=== PATIENT | female | born 1945 | race African-American/Black ===

== ENCOUNTER 2019-12-02 13:50 | Inpatient (IN) | payer MEDICAID ==
[~2019-12-02] VITALS: Ht 154.9 cm; Wt 104.3 kg
[2019-12-02] MEDS: NACL 0.9% 1,000 ML IV SCH (01:00)
[~2019-12-02 13:50] MED LIST: AMLO10TA GT; CALC-105 GT; ENAL-197 GT; ESOM20EC GT; FENT25TD TD; FER300L GT; FOLI1TAB19 GT; FURO-572 GT; GLIP5TAB4 GT; MEDI30SO1 GT; MIRABULK GT; POLY15SO48 OP; SIMV10TA1 GT; VIC GT; [UNRECOGNIZED DRUG - CODE] GT
[2019-12-02 13:54] VITALS: BP 159/100
--- NOTE | 2019-12-02 14:00 | NUR ---
ALVINO GARCIA ALS TO ER BED 08
[2019-12-02 14:24] VITALS: BP 163/88
--- NOTE | 2019-12-02 14:50 | NUR ---
74 Y/O FEMALE BIB [facility], STAFF REPORTED INCREASED GASTRIC RESIDUAL >2000. ABD BLOATED AND FIRM. BOWEL SOUNDS HYPER ACTIVE IN ALL QUADRANTS. G TUBE PRESENT. EXP WHEEZES HEARD IN BILAT LUNGS. PT ON MECH VENT, RT AT BEDSIDE. NO DISTRESS NOTED. CAP REFILL >3. CONTRACTURES NOTED IN BILAT LOWER/UPPER EXTREMITIES. PERRLA. GCS12. PT AT BASELINE PER [facility]. VSS PMH: HTN, RESP DISTRESS, DM NKA
--- NOTE | 2019-12-02 15:08 | NUR ---
DR NASSAR AT BEDSIDE
[2019-12-02] MEDS ORDERED: NACL 0.9% 500 ML IV SCH (15:23)
--- NOTE | 2019-12-02 15:24 | NUR ---
ANNIKA ALEJO MADE AWARE ABOUT PATIENTS HTN 197/33. NO ORDERS PLACED AT THIS TIME
[2019-12-02] MEDS ORDERED: hydrALAZINE 20 MG/ML VIAL IVP ONE (15:25)
--- NOTE | 2019-12-02 16:18 | NUR ---
UNABLE TO GAIN IV ACCESS. CHARGE NURSE LAURO NOTIFIED. CONSULTED WITH ANNIKA ALEJO, ADVISED WE WILL ORDER FOR PICC LINE ACCESS. CONSENT SIGNED BY ANNIKA
--- NOTE | 2019-12-02 16:22 | NUR ---
PT TAKEN TO CT VIA GURNEY. PORTABLE TELE MONITOR HOOKED UP TO PT.
--- NOTE | 2019-12-02 16:25 | NUR ---
TRANSFERRED PATIENT TO RADIOLOGY FOR CT SCAN OF CHEST AND ABDOMEN REMOVED PATIENT FROM VENTILATOR AND PLACED ON SUPPLEMENTAL OXYGEN VIA E-TANK AT 15 LPM TO HME/INLINE SUCTION CATHETER/TRACH BAG DEPRESSIO EVERY 6-8 SECONDS TOLERATED PROCEDURE WELL WITHOUT INCIDENT SATURATION 98% HR 118 Addendum: 12/02/19 at 1651 by Matt Medina RT Donnie AUGUST RCP AND Sylwia MEDINA RCP ATTENDING
[2019-12-02 16:34] LABS: APPEARANCE,URINE CLEAR (CLEAR); BILIRUBIN,URINE NEGATIVE (NEGATIVE); BLOOD, URINE NEGATIVE (NEGATIVE); COLOR,URINE YELLOW (YELLOW); LEUKOCYTE ESTERASE ,URINE NEGATIVE (NEGATIVE); NITRITE, URINE NEGATIVE (NEGATIVE); PH,URINE 7.5 (5.0-9.0); UGLUCOSE NEGATIVE (NEGATIVE)
--- NOTE | 2019-12-02 16:41 | NUR ---
PT REMAINS ON AC 10, VT 450, PEEP 5 AND FIO2 28%. PT NOT IN ANY DISTRESS AT THIS TIME. VENT IS ALARMS REMAIN ON AND FUNCTIONING. TRACH IS SECURE WITH A PATENT AIRWAY.
[2019-12-02 16:50] LABS: RBC,URINE 0 /HPF (0-5); URINE AMORPHOUS URATE 1+ /HPF (None Seen); WBC,URINE 0-5 /HPF (0-5)
[2019-12-02 16:51] LABS: HYALINE CASTS, URINE 0-10 /LPF (None Seen)
[2019-12-02] MEDS ORDERED: ACETAMINOPHEN 325 MG TAB PO PRN (17:20)
[2019-12-02] MEDS ORDERED: HYDROcodone/APAP 7.5/325 MG 1 TAB GT PRN (17:20)
[2019-12-02] MEDS ORDERED: ONDANSETRON 4 MG/2 ML VIAL IM/IVP PRN (17:20)
[2019-12-02] MEDS ORDERED: MORPHINE SULFATE 2 MG/ML SYR IVP PRN (17:20)
[2019-12-02] MEDS ORDERED: DOCUSATE SODIUM 100 MG GELCAP PO PRN (17:20)
--- NOTE | 2019-12-02 17:30 | NUR ---
MIHIR TORRES RN AT BEDSIDE BEGINNING PICC LINE PROCEDURE. 1 EMT AT BEDSIDE.
--- NOTE | 2019-12-02 17:50 | NUR ---
PICC LINE INSERTION COMPLETE. PATIENT TOLERATED PROCEDURE WELL.
--- NOTE | 2019-12-02 17:58 | NUR ---
LAB AT BEDSIDE
[2019-12-02 18:08] LABS: BASOPHILS % (AUTO) 0.4 % (0.0-2.0); EOSINOPHILS # (AUTO) 0.1 K/uL (0-0.4); EOSINOPHILS % (AUTO) 1.2 % (0.0-4.0); HEMATOCRIT 31.9 % (36-48); HEMOGLOBIN 10.2 g/dL (12.0-16.0); LYMPHOCYTES # (AUTO) 2.4 K/uL (2.5-16.5); LYMPHOCYTES % (AUTO) 23.3 % (20.5-51.1); MEAN CORPUSCULAR HEMOGLOBIN 30 pg (27-31); MEAN CORPUSCULAR HGB CONC 32 g/dL (33-37); MEAN CORPUSCULAR VOLUME 94.3 fL (80-94); MONOCYTES # (AUTO) 1.4 K/uL (0.8-1.0); MONOCYTES % (AUTO) 13.1 % (1.7-9.3); NEUTROPHILS # (AUTO) 6.4 K/uL (1.8-7.7); PLATELET COUNT (AUTO) 208 K/uL (140-450); RED BLOOD CELL COUNT(AUTO) 3.38 MIL/uL (4.20-5.40); RED CELL DISTRIBUTION WIDTH 13.8 % (11.6-13.7); WHITE BLOOD COUNT (AUTO) 10.4 K/uL (4.8-10.8)
--- NOTE | 2019-12-02 18:09 | NUR ---
G TUBE PLACED TO MED CONTINOUS SUCTION PER ERMD MARIANA ORDERS. 1400ML DRAINAGE COLLECTED
[2019-12-02] MEDS ORDERED: ACET-2619 GT (18:13)
[2019-12-02] MEDS ORDERED: METO-485 GT (18:13)
[2019-12-02] MEDS ORDERED: NUTR-396 PO (18:13)
[2019-12-02] MEDS ORDERED: METO50TA GT (18:19)
[2019-12-02] MEDS ORDERED: LACT1CAP92 GT (18:22)
[2019-12-02] MEDS ORDERED: CRAN450T5 GT (18:28)
[2019-12-02] MEDS ORDERED: ASCO500T45 GT (18:29)
[2019-12-02] MEDS ORDERED: [UNRECOGNIZED DRUG - OTHER] GT (18:32)
[2019-12-02] MEDS ORDERED: POTA10TE30 GT (18:33)
[2019-12-02 18:38] LABS: PROTHROMBIN TIME 10.7 secs (10.8-13.4)
--- NOTE | 2019-12-02 18:40 | NUR ---
Patient will be admitted to [facility]. Admited to TELE. Will go to room 108B. Belongings list completed. Report to SAMUEL SHERIDAN.
[2019-12-02 18:46] LABS: ALBUMIN 2.9 g/dL (3.4-5.0); ANION GAP 10.4 (8-16); ASPARTATE AMINOTRANSFERASE 25 U/L (15-37); CARBON DIOXIDE 35.7 mmol/L (21-32); CHLORIDE 102 mmol/L (98-107); CREATININE 0.7 mg/dL (0.6-1.3); GLUCOSE 129 mg/dL (74-106); POTASSIUM 3.1 mmol/L (3.5-5.1); SODIUM SERUM 145 mmol/L (136-145); TOTAL BILIRUBIN 0.3 mg/dL (0.0-1.0); UREA NITROGEN, BLOOD 21 mg/dL (7-18)
[2019-12-02 18:51] LABS: FREE T4 (FREE THYROXINE) 1.3 ng/dL (0.76-1.46); MAGNESIUM 2.4 mg/dL (1.8-2.4); PHOSPHORUS 3.7 mg/dL (2.5-4.9); THYROID STIMULATING HORMONE 3.31 uIU/mL (0.34-3.74)
--- NOTE | 2019-12-02 19:30 | NUR ---
RECEIVED BEDSIDE REPORT FROM AM SHIFT RN FOR PT'S CONTINUITY OF CARE. PT IS APHASIC, IS ON STONE UNLOADER, IS ON TRACH TO VENT, HAS RIGHT UPPER ARM PICC LINE, BILATERAL UPPER EXTREMITY CONTRACTURES, AND BILATERAL FEET CONTRACTURES, FLACC - 0. SAFETY MEASURES IN PLACE, AND VENT MONITOR IN PROPER SETTINGS. WILL MONITOR PT THROUGHOUT SHIFT.
--- NOTE | 2019-12-02 19:32 | NUR ---
GAVE REPORT TO EVENT SPECIALIST NURSE FOR CONTINUITY OF CARE. PATIENT IN STABLE CONDITION.
[2019-12-02] MEDS ORDERED: ACETAMINOPHEN 325 MG TAB GT PRN (19:55)
[2019-12-02 20:00] VITALS: BP 145/75
[2019-12-02] MEDS: METOPROLOL 50 MG TAB GT SCH (21:00)
[2019-12-02] MEDS: CALCIUM CARB/VIT-D 500 MG/200 IU 1 TAB GT SCH (21:00)
[2019-12-02] MEDS: SIMVASTATIN 10 MG TAB GT SCH (21:00)
[2019-12-02] MEDS: POTASSIUM CHLORIDE 20% 40 MEQ/15 ML UDC GT SCH (21:00)
--- NOTE | 2019-12-02 21:00 | NUR ---
GTUBE PLACEMENT VERIFIED BY AUSCULTATION, ASPIRATED >200 ML OF GASTRIC CONTENTS, NOTIFIED MD. PER MD, HOLD PO MEDICATIONS UNTIL NEXT MORNING FOR FURTHER EVAL. NEW IV ORDERS WILL BE PUT IN.
[2019-12-02] MEDS ORDERED: FUROSEMIDE 20 MG TAB GT SCH (21:30)
[2019-12-02] MEDS ORDERED: DOCUSATE 100 MG/10 ML UDC GT SCH (21:30)
[2019-12-02] MEDS ORDERED: ALBUTEROL SULFATE/IPRATROPIU 3 ML SOL IH PRN (21:30)
[2019-12-02] MEDS ORDERED: GLUCAGON 1 MG VIAL IVP PRN (22:50)
[2019-12-02] MEDS ORDERED: INSULIN LISPRO SLIDING SCALE 100 UNITS/ML VIAL SUBQ PRN (22:50)
[2019-12-02] MEDS ORDERED: DEXTROSE 50% 50 ML SYR IVP PRN (22:50)
[2019-12-02] MEDS: hydrALAZINE 20 MG/ML VIAL IVP PRN (22:52)
--- NOTE | 2019-12-02 22:58 | NUR ---
ADMINISTERED SCHEDULED MEDICATIONS ORDERED. PICC LINE PATENT AND INTACT. PERFORMED ORAL CARE. GTUBE ON LOW INTERMITTENT SUCTION PER MD ORDER. PT SHOWS NO SIGNS OF DISTRESS AT THIS TIME. WILL CONTINUE TO MONITOR PT.
[2019-12-02] MEDS ORDERED: KCL 20 MEQ/WATER INJ PREMIX 200 ML IV SCH (23:00)
[2019-12-02] MEDS ORDERED: FUROSEMIDE 20 MG/2 ML VIAL IVP SCH (23:00)
[2019-12-03] VITALS (7 sets, daily range): BP systolic 132–172; BP diastolic 40–69
--- NOTE | 2019-12-03 | NUR ---
VS CHECKED AND CHARTED. NOTIFIED MD, NO NEW ORDERS.
--- NOTE | 2019-12-03 02:28 | NUR ---
MADE ROUNDS. PT IN STABLE CONDITION, SHOWS NO SIGNS OF DISTRESS. WILL CONTINUE TO MONITOR PT.
--- NOTE | 2019-12-03 04:00 | NUR ---
SUCTIONED PT. ORAL CARE GIVEN, PT CLOSING MOUTH AND BITING THE YANKAUER SUCTION.
[2019-12-03] MEDS: POTASSIUM CHLORIDE 20% 40 MEQ/15 ML UDC GT SCH (05:00)
--- NOTE | 2019-12-03 05:05 | NUR ---
PO MEDICATION NON-ADMINISTERED, PER MD INSTRUCTION.
[2019-12-03] MEDS: hydrALAZINE 20 MG/ML VIAL IVP PRN (05:08)
--- NOTE | 2019-12-03 05:08 | NUR ---
ADMINISTERED IVP HYDRALAZINE PER PROTOCOL. SUCTIONED PT, PT TOLERATED IT WELL. PT CHANGED AND REPOSITIONED. WILL CONTINUE TO MONITOR PT.
--- NOTE | 2019-12-03 06:10 | NUR ---
BP RE-ASSESSED. BP 153/57 HR 103. BLOOD GLUCOSE CHECKED AND CHARTED, NO INSULIN COVERAGE NEEDED. PT SHOWS NO SIGNS OF DISTRESS. WILL ENDORSE TO AM SHIFT RN FOR PT'S CONTINUITY OF CARE.
[2019-12-03] MEDS: BLOOD GLUCOSE MONITORING 1 DEV DEV FS SCH ×4 (06:14→21:00)
--- NOTE | 2019-12-03 07:20 | NUR ---
RECEIVED REPORT FROM CONTRACTOR GENERAL ENGINEERING NURSE. PATIENT LYING DOWN IN BED, AWAKE, PERRLA, APHASIC. NO DISTRESS NOTED. ON TRACH TO VENT: FIO2:28%, VT:450, RATE:10, FLOW:30, PEEP:5, PMAX:55 WITH O2 SAT:98%. GTUBE IN PLACE, ON LOW INTERMITTENT SUCTION PER MD ORDERS. RUARM PICC LINE IN PLACE, INFUSING IVF PER MD ORDERS. REVIEWED PLAN OF CARE WITH PATIENT. UNABLE TO COMPREHEND. SAFETY MEASURES IN PLACE, CALL LIGHT WITHIN REACH. WILL CONTINUE TO MONITOR.
[2019-12-03] MEDS ORDERED: POLYVINYL ALCOHOL 1.4% OP 15 ML SOL OP PRN ×2 (07:25→12:19)
[2019-12-03 07:56] LABS: BASOPHILS % (AUTO) 0.5 % (0.0-2.0); EOSINOPHILS # (AUTO) 0.3 K/uL (0-0.4); HEMATOCRIT 31.6 % (36-48); HEMOGLOBIN 10.2 g/dL (12.0-16.0); LYMPHOCYTES # (AUTO) 2.5 K/uL (2.5-16.5); LYMPHOCYTES % (AUTO) 29.1 % (20.5-51.1); MEAN CORPUSCULAR HEMOGLOBIN 30 pg (27-31); MEAN CORPUSCULAR HGB CONC 32 g/dL (33-37); MEAN CORPUSCULAR VOLUME 94.1 fL (80-94); MONOCYTES # (AUTO) 0.9 K/uL (0.8-1.0); MONOCYTES % (AUTO) 10.3 % (1.7-9.3); NEUTROPHILS % (AUTO) 57.1 % (42.2-75.2); PLATELET COUNT (AUTO) 173 K/uL (140-450); RED BLOOD CELL COUNT(AUTO) 3.36 MIL/uL (4.20-5.40); RED CELL DISTRIBUTION WIDTH 13.6 % (11.6-13.7); WHITE BLOOD COUNT (AUTO) 8.7 K/uL (4.8-10.8)
[2019-12-03] MEDS: ALBUTEROL SULFATE/IPRATROPIU 3 ML SOL IH SCH ×3 (07:59→20:28)
[2019-12-03 08:07] LABS: ANION GAP 11.5 (8-16); CHLORIDE 103 mmol/L (98-107); CREATININE 0.6 mg/dL (0.6-1.3); GLUCOSE 107 mg/dL (74-106); SODIUM SERUM 147 mmol/L (136-145); UREA NITROGEN, BLOOD 16 mg/dL (7-18)
[2019-12-03 08:11] LABS: PHOSPHORUS 3.2 mg/dL (2.5-4.9)
--- NOTE | 2019-12-03 08:17 | NUR ---
PATIENT HAS BEEN SCREENED AND CATEGORIZED HIGH NUTRITION RISK. PATIENT WILL BE SEEN WITHIN 1-2 DAYS OF ADMISSION. 12/03/19-12/04/[address]
[2019-12-03 08:28] LABS: POTASSIUM 2.5 mmol/L (3.5-5.1)
[2019-12-03] MEDS: LACTOBACILLUS RHAMNOSUS GG 1 EACH CAP GT SCH (09:00)
[2019-12-03] MEDS ORDERED: POLYVINYL ALCOHOL 1.4% OP 15 ML SOL OP SCH (09:00)
[2019-12-03] MEDS ORDERED: CALCIUM CARB/VIT-D 500 MG/200 IU 1 TAB GT SCH (09:00)
[2019-12-03] MEDS: DOCUSATE 100 MG/10 ML UDC GT SCH ×2 (09:00→21:00)
[2019-12-03] MEDS: METOPROLOL 50 MG TAB GT SCH ×2 (09:00→21:00)
[2019-12-03] MEDS: CALCIUM POLYCARBOPHIL 625 MG TAB GT SCH (09:00)
[2019-12-03] MEDS ORDERED: METOCLOPRAMIDE 10 MG TAB GT SCH (09:00)
[2019-12-03] MEDS: NACL 0.9% 1,000 ML IV SCH (09:00)
[2019-12-03] MEDS: amLODIPine 5 MG TAB GT SCH (09:00)
[2019-12-03] MEDS: CALCIUM CARB/VIT-D 500 MG/200 IU 1 TAB GT SCH ×2 (09:00→21:00)
[2019-12-03] MEDS ORDERED: FUROSEMIDE 20 MG TAB GT SCH (09:00)
[2019-12-03] MEDS ORDERED: NON-FORMULARY ITEM (Cranberry Fruit (Cranberry) 450 MG) GT SCH (09:00)
[2019-12-03] MEDS ORDERED: VITAMIN D3 GT SCH (09:00)
[2019-12-03] MEDS: POLYETHYLENE GLYCOL 17 GM/PKT GT SCH (09:00)
[2019-12-03] MEDS ORDERED: ASCORBIC ACID 500 MG TAB GT SCH (09:00)
[2019-12-03] MEDS ORDERED: CALCIUM CARBONATE GT SCH (09:00)
[2019-12-03] MEDS: METOCLOPRAMIDE 10 MG/2 ML INJ VIAL IVP SCH (10:00)
[2019-12-03] MEDS: PANTOPRAZOLE 40 MG INJ VIAL IVP SCH (10:00)
[2019-12-03] MEDS: FUROSEMIDE 20 MG/2 ML VIAL IVP SCH (10:01)
--- NOTE | 2019-12-03 10:23 | NUR ---
PATIENT LYING DOWN IN BED SLEEPING, AROUSABLE BY VOICE. NO DISTRESS NOTED. FLACC 0. SCHEDULED MEDICATIONS DUE GIVEN. WILL CONTINUE TO MONITOR.
[2019-12-03] MEDS ORDERED: POTASSIUM CHLORIDE 40 MEQ, LIDOCAINE MPF 1% 25 MG in NACL 0.9% 250 ML IV SCH ×2 (11:00→15:00)
[2019-12-03] MEDS ORDERED: DEXT 5% / NACL 0.45% 1,000 ML IV SCH (11:05)
--- NOTE | 2019-12-03 11:47 | NUR ---
PT SUCTIONED OBTAINED SMALL AMOUNT OF THICK CLEAR SECRETIONS, AIRWAY IS PATENT AND TRACH IS SECURE. PT NOT IN ANY DISTRESS AT THIS TIME. WILL CONTINUE TO MONITOR.
--- NOTE | 2019-12-03 12:30 | NUR ---
ASSISTED CONCRETE STONE FINISHING SUPERVISOR IN CLEANING AND REPOSITIONING PATIENT. WILL CONTINUE TO MONITOR.
--- NOTE | 2019-12-03 13:32 | NUR ---
12/03/19 RD INITIAL ASSESSMENT COMPLETED PLEASE REFER TO NUTRITION ASSESSMENT UNDER CARE ACTIVITY FOR ESTIMATED NUTRITIONAL NEEDS. 1. CONTINUE NPO MEDICALLY NECESSARY 2. IF PATIENT BECOMES MEDICALLY CLEARED TO CONTINUE TUBE FEEDING UNDER DOCTORS DISCRETION, CONSIDER VITAL AF 1.2 @ 55 ML/HR X 24 HR -THIS WILL PROVIDE 1320 ML OF VOLUME, 1584 KCAL AND 99 GM OF PROTEIN, MEETING >75% OF NUTRIENT NEEDS 3. IF PATIENT CONTINUES TO BE NPO AND UNABLE TO RESTART TUBE FEEDING, CONSIDER PARENTERAL NUTRITION 4. RD TO FOLLOW-UP 2-3 DAYS, HIGH RISK MARIA ELENA LEMA RD
--- NOTE | 2019-12-03 13:35 | NUR ---
Photographic Process Attendant Note: Basic Screen: Yes High Risk DC Screen [place]: DENISSE FERNANDEZ Home Relationship: DAUGHTER Pre-Admission Living Arrangements: SNF Prior ADL Total/Dependent Current Home Health Name/Tel: N/A Current DME/02 Name/Tel: [facility] Current Hospice Name/Tel: N/A Current Dialysis Name/Tel: N/A Healthcare Decision Maker: Next of Kin Other: DENISSE REBECCA Advance Directive Yes Physician Orders for Life Sustaining Treatment Form Yes Discipline: Case Mgt/Social Svcs Tentative Discharge Plan/Destination: No Needs Identified Will require assistance post discharge: No Referred to Integration Consultant: No Tentative Discharge Plan Summary: Patient is a 74-year-old female admitted for gastric outlet obstruction. patient has PMHX of diabetes, GERD, and hypertension. Patient was admitted from [facility] as a subacute patient. SW contacted Lucinda from [facility] [phone] who stated patient is on a bed hold and needs total assistance with ADLs. Patient's tentative discharge plan is to [facility]. No further needs identified. Signature: LG Liu Date: Dec 03, 2019 Time: 13:30
--- NOTE | 2019-12-03 13:56 | NUR ---
DC PLANNING: A 74 Y/O FEMALE PATIENT FROM [facility] WHO CAME IN DUE TO ELEVATED BLOOD PRESSURE AND G TUBE RESIDUALS. PAST MEDICAL HISTORY INCLUDE CHRONIC RESPIRATORY FAILURE, DYSPHAGIA, CVA, DEMENTIA, QUADRIPLEGIA AND HTN. INITIAL DIAGNOSIS OF GASTRIC OUTLET OBSTRUCTION. CURRENT LABS INCLUDE WBC 8.7, H/H 10.2/31.6, NA/K 147/2.5, BUN/CREA 16/0.6. URINE, BLOOD, SPUTUM AND MRSA NARES PENDING. GI, PULMO, ID AND SURGICAL CONSULTS IN PLACE. ON LASIX AND REGLAN IV. DC PLAN BACK TO [facility] ONCE STABLE. Addendum: 12/05/19 at 1118 by Sumi Mclean CM RECEIVED AN ORDER TO DC BACK TO [facility] TODAY. CONTACTED PATIENT'S DAUGHTER DENISSE AT [phone] REGARDING DC PLAN, NO ANSWER. LEFT MESSAGE CLINICALS FAXED TO [facility]. CM WILL FOLLOW UP. Addendum: 12/05/19 at 1335 by Sumi Mclean CM PER YULISA PATIENT CAN DO TO ROOM 21B UNDER DR. TRINITY KEYS. CONTACTED PATIENT'S DAUGHTER DENISSE AT [phone], NO ANSWER. LEFT MESSAGE. Addendum: 12/05/19 at 1419 by Sumi Mclean CM PER [facility], LENS GENERATOR WILL BE AT 1600. PRIMARY FATIMAH DE AND DR. ALFONSO MADE AWARE.
--- NOTE | 2019-12-03 14:00 | NUR ---
DR LAM AT BEDSIDE EVALUATING PATIENT. PER DR. LAM GET EGD CONSENT. CALLED DENISSE(DAUGHTER) AT [phone] TO ASK FOR TELEPHONE CONSENT FOR EGD, NO ANSWER. LEFT A MESSAGE AND CALL BACK NUMBER. WILL CONTINUE OT MONITOR.
[2019-12-03] MEDS: POTASSIUM CHL 30 MEQ/ D5-1/2NS 1,000 ML IV SCH (15:26)
--- NOTE | 2019-12-03 16:02 | NUR ---
SCREEN FOR LOW CHIKIS SCALE AT RISK, CONTINUE TO FOLLOW PRESSURE ULCER PREVENTION INTERVENTIONS. -TURN AND REPOSITION PATIENT Q 2H -ASSESS AND MONITOR SKIN CONDITION DURING POSITION CHANGE -OFFLOAD BILATERAL HEELS BY PLACING PILLOWS UNDER CALVES AT ALL TIMES, UNLESS OTHERWISE CONTRAINDICATED -PRESSURE REDISTRIBUTION BY PLACING PILLOWS AND OFFLOADING SACRALCOCCYX -KEEP SKIN CLEAN AND DRY AT ALL TIMES.
--- NOTE | 2019-12-03 16:30 | NUR ---
ASSISTED COLORIST PHOTOGRAPHY IN CLEANING AND REPOSITIONING PATIENT. WILL CONTINUE TO MONITOR.
--- NOTE | 2019-12-03 17:51 | NUR ---
PT REMAINS ON DOCUMENTED VENT SETTINGS. PT NOT IN ANY DISTRESS AT THIS TIME. TRACH IS SECURE WITH A PATENT AIRWAY. PT SUCTIONED OBTAINED SMALL AMOUNT OF THICK PALE YELLOW SECRETIONS. VENT ALARMS ON AND FUNCTIONING.
[2019-12-03 18:38] LABS: ANION GAP 11.5 (8-16); CARBON DIOXIDE 32.4 mmol/L (21-32); CHLORIDE 107 mmol/L (98-107); CREATININE 0.6 mg/dL (0.6-1.3); GLUCOSE 122 mg/dL (74-106); SODIUM SERUM 148 mmol/L (136-145); UREA NITROGEN, BLOOD 12 mg/dL (7-18)
[2019-12-03] MEDS ORDERED: VANCOMYCIN PER PHARMACY MC PRN (18:40)
[2019-12-03 18:45] LABS: POTASSIUM 2.9 mmol/L (3.5-5.1)
--- NOTE | 2019-12-03 19:26 | NUR ---
GAVE REPORT TO DRIVER'S LICENSE EXAMINER NURSE FOR CONTINUITY OF CARE. PATIENT IN STABLE CONDITION.
--- NOTE | 2019-12-03 19:30 | NUR ---
RECEIVED PT FROM MATI SHERIDAN PT BEDBOUND APHASIC CONTRACTED UPPER AND LOWER EXTREMITIESHOB 30 DEGREEJ TRACH TO VENT TV 450 FI02 24% PEEP 5 RR 1 NOT SOB NOTED ON RT UA PICC LINE INFUSING WELL AT THIS TIME STILL INFUSING K +RIDDER , AND ALSO INFUSING IV FLUIDS D5 1/2 NS WITH 30 MEQ K+ PT REPOSITIONED INITIAL ASSESSMENT DONE ON TELEMETRY SR
--- NOTE | 2019-12-03 20:00 | NUR ---
HOB 30 DEGREE ORAL CARE GIVEN WITH VAP KIT , PT REPOSITIONED NOT DISTRESS NO;ALESSANDRA, PT ON TELE SR
[2019-12-03] MEDS: VANCOMYCIN 1,000 MG in DEXTROSE 5% 250 ML IV SCH (20:11)
[2019-12-03] MEDS: SIMVASTATIN 10 MG TAB GT SCH (21:00)
--- NOTE | 2019-12-03 21:00 | NUR ---
I CALL SEVERAL TIME TO DENISSE PT DAUGHTER TO GIVE A CONSENT FOR EGD TOMORROW AND THE FIRST TIME SHE PUT ME ON HOLD AND SHE DID NOT ANSWER AND THE OTHER 3 TIMES THAT I CALLED TO DENISSE PT DAUGHTER SHE DID NOT ANSWER AND I I LEFT A MESSAGES
[2019-12-04] VITALS: BP 154/40
--- NOTE | 2019-12-04 | NUR ---
PT ON CLOSE MONITORING ON TELEMETRY SR, TRACH TO VENT REMAIN SAME SETTING , PT REPOSITIONED Q2H
--- NOTE | 2019-12-04 02:12 | NUR ---
PT SLEEPING WELL NOT DISTRESS NOTED ON TELE SR , PT REPOSITIONED Q2H ANS SUCTIONED NECESSARY
[2019-12-04 04:00] VITALS: BP 156/47
[2019-12-04] MEDS: POTASSIUM CHL 30 MEQ/ D5-1/2NS 1,000 ML IV SCH (04:18)
[2019-12-04] MEDS: ALBUTEROL SULFATE/IPRATROPIU 3 ML SOL IH SCH ×3 (06:50→19:16)
--- NOTE | 2019-12-04 07:15 | NUR ---
RECEIVED REPORT FROM QUILT STUFFER NURSE. PATIENT LYING DOWN IN BED, AWAKE, PERRLA, APHASIC. NO DISTRESS NOTED. ON TRACH TO VENT: FIO2:24%, VT:450, RATE:10, FLOW:30, PEEP:5, PMAX:55 WITH O2 SAT:98%. GTUBE IN PLACE, ON LOW INTERMITTENT SUCTION PER MD ORDERS. RUARM PICC LINE IN PLACE, INFUSING IVF PER MD ORDERS. REVIEWED PLAN OF CARE WITH PATIENT. UNABLE TO COMPREHEND. SAFETY MEASURES IN PLACE, CALL LIGHT WITHIN REACH. WILL CONTINUE TO MONITOR.
[2019-12-04] MEDS: BLOOD GLUCOSE MONITORING 1 DEV DEV FS SCH ×4 (07:30→21:52)
[2019-12-04 08:00] VITALS: BP 134/45
[2019-12-04] MEDS: VANCOMYCIN 1,000 MG in DEXTROSE 5% 250 ML IV SCH (08:00)
[2019-12-04] MEDS: amLODIPine 5 MG TAB GT SCH (09:00)
[2019-12-04] MEDS: METOCLOPRAMIDE 10 MG/2 ML INJ VIAL IVP SCH ×3 (09:00→22:04)
[2019-12-04] MEDS: PANTOPRAZOLE 40 MG INJ VIAL IVP SCH (09:00)
[2019-12-04] MEDS: POLYETHYLENE GLYCOL 17 GM/PKT GT SCH (09:00)
[2019-12-04] MEDS: ASCORBIC ACID 500 MG/5 ML ORASYR GT SCH (09:00)
[2019-12-04] MEDS: CALCIUM CARB/VIT-D 500 MG/200 IU 1 TAB GT SCH (09:00)
[2019-12-04] MEDS: LACTOBACILLUS RHAMNOSUS GG 1 EACH CAP GT SCH (09:00)
[2019-12-04] MEDS: FUROSEMIDE 20 MG/2 ML VIAL IVP SCH (09:00)
[2019-12-04] MEDS: CALCIUM POLYCARBOPHIL 625 MG TAB GT SCH (09:00)
[2019-12-04] MEDS: METOPROLOL 50 MG TAB GT SCH ×2 (09:00→22:06)
[2019-12-04] MEDS: DOCUSATE 100 MG/10 ML UDC GT SCH (09:00)
--- NOTE | 2019-12-04 09:50 | NUR ---
SCHEDULED MEDICATIONS DUE GIVEN. CONDITION UNCHANGED. WILL CONTINUE TO MONITOR.
--- NOTE | 2019-12-04 09:51 | NUR ---
40 MEQ KCL WITH LIDOCAINE VIA IV STARTED PER DR. ALFONSO ORDERED. WILL CONTINUE TO MONITOR.
[2019-12-04 10:53] LABS: ANION GAP 10.7 (8-16); BASOPHILS % (AUTO) 0.6 % (0.0-2.0); CARBON DIOXIDE 31.1 mmol/L (21-32); CHLORIDE 108 mmol/L (98-107); CREATININE 0.6 mg/dL (0.6-1.3); EOSINOPHILS # (AUTO) 0.3 K/uL (0-0.4); EOSINOPHILS % (AUTO) 4.5 % (0.0-4.0); GLUCOSE 110 mg/dL (74-106); HEMATOCRIT 30.2 % (36-48); HEMOGLOBIN 9.7 g/dL (12.0-16.0); LYMPHOCYTES # (AUTO) 1.9 K/uL (2.5-16.5); LYMPHOCYTES % (AUTO) 29.4 % (20.5-51.1); MEAN CORPUSCULAR HEMOGLOBIN 31 pg (27-31); MEAN CORPUSCULAR HGB CONC 32 g/dL (33-37); MONOCYTES # (AUTO) 0.7 K/uL (0.8-1.0); MONOCYTES % (AUTO) 10.4 % (1.7-9.3); NEUTROPHILS # (AUTO) 3.6 K/uL (1.8-7.7); NEUTROPHILS % (AUTO) 55.1 % (42.2-75.2); PLATELET COUNT (AUTO) 132 K/uL (140-450); RED BLOOD CELL COUNT(AUTO) 3.18 MIL/uL (4.20-5.40); RED CELL DISTRIBUTION WIDTH 13.9 % (11.6-13.7); SODIUM SERUM 147 mmol/L (136-145); UREA NITROGEN, BLOOD 7 mg/dL (7-18); WHITE BLOOD COUNT (AUTO) 6.4 K/uL (4.8-10.8)
[2019-12-04 10:54] LABS: MAGNESIUM 1.8 mg/dL (1.8-2.4); PHOSPHORUS 3.3 mg/dL (2.5-4.9)
[2019-12-04] MEDS ORDERED: POTASSIUM CHLORIDE 40 MEQ, LIDOCAINE MPF 1% 25 MG in NACL 0.9% 250 ML IV ONE (11:20)
[2019-12-04 12:00] VITALS: BP 144/48
--- NOTE | 2019-12-04 12:00 | NUR ---
PATIENT LYING DOWN IN BED SLEEPING, AROUSABLE BY VOICE. NO DISTRESS NOTED. FLACC 0. WILL CONTINUE TO MONITOR.
[2019-12-04 12:13] LABS: POTASSIUM 2.8 mmol/L (3.5-5.1)
[2019-12-04] MEDS: POTASSIUM CHL 40 MEQ/ D5-1/2NS 1,000 ML IV SCH (13:27)
[2019-12-04] MEDS ORDERED: MIDAZOLAM 2 MG/2 ML VIAL ONE ×2 (13:48)
[2019-12-04] MEDS ORDERED: fentaNYL 0.05 MG/ML VIAL ONE (13:48)
--- NOTE | 2019-12-04 13:48 | NUR ---
ASSISTED FRENCH TEACHER IN CLEANING AND REPOSITIONING PATIENT. WILL CONTINUE TO MONITOR.
[2019-12-04] MEDS: MIDAZOLAM 2 MG/2 ML VIAL IVP ONE ×2 (14:50→16:50)
[2019-12-04] MEDS: fentaNYL 0.05 MG/ML VIAL IVP ONE ×2 (14:51→16:50)
--- NOTE | 2019-12-04 15:40 | NUR ---
DR. LAM AT BEDSIDE PERFORMING EGD. WILL CONTINUE TO MONITOR.
[2019-12-04 16:00] VITALS: BP 114/65
[2019-12-04] MEDS: GLUCAGON 1 MG VIAL IVP ONE ×2 (16:00→16:50)
--- NOTE | 2019-12-04 16:40 | NUR ---
EGD FINISHED. PER DR. LAM, DUODENAL POLYP REMOVED AND GTUBE AND JTUBE CONVERSION WAS PERFORMED. GTUBE TO LEAVE OPEN ON GRAVITY DRAIN AND FOR MED ADMINISTRATION. IF GIVING MED, CLAMP FOR 3 HOURS, AND THEN RESUME GRAVITY DRAIN ON GTUBE. JTUBE ONLY FOR FEEDING.
[2019-12-04] MEDS ORDERED: POTASSIUM CHLORIDE 20% 40 MEQ/15 ML UDC GT SCH (17:00)
--- NOTE | 2019-12-04 17:28 | NUR ---
SCHEDULED MEDICATIONS DUE GIVEN .WILL CONTINUE TO MONITOR.
--- NOTE | 2019-12-04 19:19 | NUR ---
GAVE REPORT TO PHOTOGRAVURE PRESS OPERATOR NURSE FOR CONTINUITY OF CARE. PATIENT IN STABLE CONDITION.
--- NOTE | 2019-12-04 19:20 | NUR ---
RECEIVED PT FROM MATI HARO APHASIC CONTRACTED ON TRACH TO VENT SETTING TV 450 , FIO2 24% PEEP 5 RR 18 NOT DISTRESS N;OTES G TUBE IN PLACE ZERO RESIDUAL PT WILL START FEEDING TUBE, ON RT UA PICC LINE INFUSING WELL IV FLUID,ON TELEMETRY ST REPOSITIONED INITIAL ASSESSMENT DONE
[2019-12-04 20:00] VITALS: BP 156/45
--- NOTE | 2019-12-04 20:00 | NUR ---
HOB 30 DEGREE ORAL CARE GIVEN WITH VAP KIT ANS SUCTIONED NECESSARY
--- NOTE | 2019-12-04 20:15 | NUR ---
FEEDING TUBE STARTED JEVITY 20 ML/H VIA JEJUNO AND G TUBE ACCESS WILL BE FOR MEDICATION
[2019-12-04] MEDS ORDERED: CRUSHER, PILL MC ONE (21:58)
[2019-12-04] MEDS: SIMVASTATIN 10 MG TAB GT SCH (22:04)
[2019-12-04] MEDS: POTASSIUM CHLORIDE 20% 40 MEQ/15 ML UDC GT SCH (22:07)
--- NOTE | 2019-12-04 23:00 | NUR ---
LINEN CHANGED ON TELEMETRY SR REPOSITIONED TRACH TO VENT REMAIN SAME SETTING
[2019-12-05] VITALS: BP 115/55
--- NOTE | 2019-12-05 03:00 | NUR ---
PT HAS BEEN ;MONITORING CLOSE TRACH TO BELEN REMAIN SAME SETTING ON TELEMETRY SR ANF FEEDING TUBE WELL ;TOLERAATED
[2019-12-05 04:00] VITALS: BP 144/43
--- NOTE | 2019-12-05 05:00 | NUR ---
SPONGE BATH GIVEN LINEN CHANGED ON TELE TRACH TO BELEN SAME SETTING ON TELEMETRY SR J TUBE FEEDING WELL TOLERATED
[2019-12-05] MEDS: ALBUTEROL SULFATE/IPRATROPIU 3 ML SOL IH SCH ×2 (06:34→13:00)
--- NOTE | 2019-12-05 06:34 | NUR ---
rec'd pt on carescape vent settings ac 10 vt 450 peep 5 fio2 234% alarms on and audible and ambu bag at side of vent and vent is plugged into red outlet, i\l tx given with duoneb 3ml with no adverse reaction post tx b\s are rhonchi bilaterally, sxn pt large amt of thick white secretions, changed hme and pt is trach with portex 7 and pt is sleeping
[2019-12-05] MEDS: BLOOD GLUCOSE MONITORING 1 DEV DEV FS SCH ×2 (06:41→11:34)
--- NOTE | 2019-12-05 06:49 | NUR ---
BLOOD SUGAR TEST 122. PT WILL BE ENDORSED TO DAY SHIFT NURSE FOR CONTINUE OF CARE
[2019-12-05 07:05] LABS: BASOPHILS # (AUTO) 0.1 K/uL (0.00-0.22); BASOPHILS % (AUTO) 0.5 % (0.0-2.0); EOSINOPHILS # (AUTO) 0.1 K/uL (0-0.4); EOSINOPHILS % (AUTO) 1.1 % (0.0-4.0); HEMATOCRIT 29.8 % (36-48); HEMOGLOBIN 9.4 g/dL (12.0-16.0); LYMPHOCYTES # (AUTO) 2.4 K/uL (2.5-16.5); LYMPHOCYTES % (AUTO) 19.1 % (20.5-51.1); MEAN CORPUSCULAR HEMOGLOBIN 30 pg (27-31); MEAN CORPUSCULAR HGB CONC 32 g/dL (33-37); MEAN CORPUSCULAR VOLUME 94.6 fL (80-94); MONOCYTES % (AUTO) 8.1 % (1.7-9.3); NEUTROPHILS # (AUTO) 8.9 K/uL (1.8-7.7); NEUTROPHILS % (AUTO) 71.2 % (42.2-75.2); PLATELET COUNT (AUTO) 96 K/uL (140-450); RED BLOOD CELL COUNT(AUTO) 3.15 MIL/uL (4.20-5.40); RED CELL DISTRIBUTION WIDTH 13.9 % (11.6-13.7); WHITE BLOOD COUNT (AUTO) 12.5 K/uL (4.8-10.8)
--- NOTE | 2019-12-05 07:24 | NUR ---
RECEIVED PATIENT FROM HOSPITAL UNIT CLERK NURSE FOR CONTINUITY OF CARE. PATIENT IS AWAKE. APHASIC. T-VENT DEPENDENT. VT 450, FI02: 24, PEEP: 5, FLOW: 30, RATE: 10. O2 SATURATION IS 95%. INTERMITTENT SUCTION. ABDOMEN SOFT, NONTENDER. GT IN PLACE RUNNING JEVITY 1.2 AT 40 ML/HR, H20 FLUSH AT 50 ML/HR Q4H. SKIN WARM, DRY, AND INTACT. RIGHT UPPER ARM PICC LINE RUNNING D51/2NS WITH 40 MEQ KCL RUNNING AT 20 ML/HR. PATIENT IS INCONTINENT, BEDBOUND, AND UPPER EXTREMITY CONTRACTURE. BED IN LOW POSITION. CALL LIGHT IS WITHIN REACH. SAFETY PRECAUTIONS IN PLACE. HOB ELEVATED TO 30 DEGREES. WILL CONTINUE TO MONITOR
[2019-12-05 07:43] LABS: ANION GAP 9.8 (8-16); CARBON DIOXIDE 31.6 mmol/L (21-32); CHLORIDE 109 mmol/L (98-107); GLUCOSE 118 mg/dL (74-106); POTASSIUM 3.4 mmol/L (3.5-5.1); SODIUM SERUM 147 mmol/L (136-145)
[2019-12-05 07:44] LABS: ALBUMIN 2.4 g/dL (3.4-5.0); ASPARTATE AMINOTRANSFERASE 21 U/L (15-37); CREATININE 0.8 mg/dL (0.6-1.3); TOTAL BILIRUBIN 0.3 mg/dL (0.0-1.0); UREA NITROGEN, BLOOD 9 mg/dL (7-18)
--- NOTE | 2019-12-05 07:53 | NUR ---
DR. VICENTE AND THE RESIDENT DOCTORS MADE ROUNDS
[2019-12-05 08:00] VITALS: BP 149/46
[2019-12-05] MEDS: POTASSIUM CHLORIDE 20% 40 MEQ/15 ML UDC GT SCH (08:37)
[2019-12-05] MEDS: ASCORBIC ACID 500 MG/5 ML ORASYR GT SCH (08:38)
[2019-12-05] MEDS: amLODIPine 5 MG TAB GT SCH (08:39)
[2019-12-05] MEDS: FUROSEMIDE 20 MG/2 ML VIAL IVP SCH (08:40)
--- NOTE | 2019-12-05 08:40 | NUR ---
GASTRIC RESIDUAL 0 ML. PATIENT IS TOLERATING FEEDING WELL
[2019-12-05] MEDS: LACTOBACILLUS RHAMNOSUS GG 1 EACH CAP GT SCH (08:41)
[2019-12-05] MEDS: METOPROLOL 50 MG TAB GT SCH (08:41)
[2019-12-05] MEDS: METOCLOPRAMIDE 10 MG/2 ML INJ VIAL IVP SCH ×2 (08:41→13:00)
--- NOTE | 2019-12-05 08:41 | NUR ---
GIVEN MORNING MEDICATIONS VIA GT. HELD HEPARIN BECAUSE PLATELET IS 96. HELD MIRALAX BECAUSE PATIENT IS HAVING DIARRHEA. EXPLAINED TO PATIENT MEDICATIONS. BED IN LOW POSITION. CALL LIGHT IS WITHIN REACH. WILL CONTINUE TO MONITOR.
[2019-12-05] MEDS: POLYETHYLENE GLYCOL 17 GM/PKT GT SCH (09:00)
--- NOTE | 2019-12-05 09:00 | NUR ---
CHANGED PATIENT'S LINEN AND GOWN. SPONGE BATH. CHG BATH GIVEN. PATIENT TOLERATED WELL. BED IN LOW POSITION. CALL LIGHT IS WITHIN REACH.
[2019-12-05 09:40] VITALS: BP 149/83
--- NOTE | 2019-12-05 09:50 | NUR ---
PATIENT IS AWAKE. ON TRACH TO VENT. O2 SATURATION IS 98%. BED IN LOW POSITION. CALL LIGHT IS WITHIN REACH. IWLL CONTINUE TO MONITOR
--- NOTE | 2019-12-05 10:16 | NUR ---
MADE ROUNDS. PATIENT IS AWAKE. ON TRACH TO VENT. PRE-OXYGENATED PATIENT PRIOR TO SUCTIONING. SUCTIONED PATIENT. P5TIGCHJCPIX IS 98%. GIVEN ORAL CARE. PATIENT TOLERATED WELL. BED IN LOW POSITION. CALL LIGHT IS WITHIN REACH. WILL CONTINUE TO MONITOR
--- NOTE | 2019-12-05 11:18 | NUR ---
PLACED PATIENT IN INTERMITTENT SUCTION. PATIENT TOLERATING IT. BED IN LOW POSITION. CALL LIGHT IS WITHIN REACH. WILL CONTINUE TO MONITOR
--- NOTE | 2019-12-05 11:23 | NUR ---
SPOKE WITH DR. ALFONSO REGARDING PATIENT'S PICC LINE. HE STATED PATIENT WILL NOT BE GOING TO [facility] WITH PICC LINE AND WITH THE INTERMITTENT SUCTION, HE WELL VERIFY WITH DR. LAM.
--- NOTE | 2019-12-05 11:30 | NUR ---
BLOOD SUGAR CHECK:111. NO INSULIN COVERAGE
--- NOTE | 2019-12-05 11:33 | NUR ---
HYPEROXYGENATED PATIENT FOR 2 MINUTES PRIOR TO SUCTIONING. WHITE SECRETIONS CAME OUT. PATIENT TOLERATED WELL. O2 SATURATION IS 100%.
[2019-12-05] MEDS ORDERED: GLUC-805 FS (11:52)
[2019-12-05] MEDS ORDERED: HUMSLIDE SUBQ (11:52)
[2019-12-05] MEDS ORDERED: D50SYR IVP (11:52)
[2019-12-05 12:00] VITALS: BP 146/59
--- NOTE | 2019-12-05 12:00 | NUR ---
VITAL SIGNS CHECK. VITALS ARE WNL. O2SAT 100%. NO SIGNS OF DISTRESS NOTED. BED IN LOW POSITION. CALL LIGHT IS WITHIN REACH. WILL CONTINUE TO MONITOR
--- NOTE | 2019-12-05 12:05 | NUR ---
HANG A NEW BAG OF D51/2NS WITH 40 MEQ AT RATE OF 20 ML/HR.
[2019-12-05] MEDS: POTASSIUM CHL 40 MEQ/ D5-1/2NS 1,000 ML IV SCH (12:08)
[2019-12-05 12:35] VITALS: BP 146/59
--- NOTE | 2019-12-05 13:00 | NUR ---
GIVEN REGLAN VIA IVP. EXPLAINED THE MED. BED IN LOW POSITION. CALL LIGHT IS WITHIN REACH. WILL CONTINUE TO MONITOR
--- NOTE | 2019-12-05 13:32 | NUR ---
PER REEL FED PRINTER ARLEEN, PATIENT WILL BE IN 21B AT [facility], PICKUP IS AROUND 1600
--- NOTE | 2019-12-05 13:54 | NUR ---
PATIENT WAS SATURATING 92%. HYPEROXYGENATED PATIENT PRIOR TO SUCTIONING. WHITE SECRETIONS NOTED. POST SUCTION, O2SAT IS 100%. BED IN LOW POSITION. CALL LIGHT IS WITHIN REACH.
--- NOTE | 2019-12-05 15:57 | NUR ---
GIVEN REPORT TO FATIMAH RETANA AT [facility]. EXPLAINED THAT PT NEEDS TO HAVE BM EVERY 1-2 DAYS. DISCUSSED PATIENT'S ASSESSMENT, TUBE FEEDING, SKIN CONDITION, LABS, AND VITAL SIGNS.
--- NOTE | 2019-12-05 16:17 | NUR ---
DISCONTINUED PICC LINE. APPLIED PRESSURE FOR 5 MINUTES. MINIMAL BLEEDING. PICC LINE IS INTACT.
--- NOTE | 2019-12-05 16:19 | NUR ---
CALLED FAMILY MEMBER TO NOTIFY THAT PATIENT IS BEING TRANSFERRED TO [facility]. NO RESPONSE.
--- NOTE | 2019-12-05 16:20 | NUR ---
DISCHARGED PATIENT VIA GURNEY ACCOMPANIED BY [facility] TRANSPORT PERSONNEL. PATIENT IS IN STABLE CONDITION. ID BAND REMOVED.
--- NOTE | 2019-12-05 17:00 | NUR ---
UNABLE TO CONTACT FAMILY
--- NOTE | 2019-12-05 17:06 | NUR ---
UNABLE TO KNOW IF PATIENT HAD FLU AND PNA VACCINE RECENTLY
== END 2019-12-05 16:20 | DRG 254 ==
LOC: MED 13:50 → MMU 17:20 → UNDOADMIN 17:20 → MTU 18:37
PROVIDERS: ADMIT General Practice; ATTEND General Practice
PROC: 5A1945Z Respiratory Ventilation, 24-96 Consecutive Hours (ICD-10-PCS; principal; 2019-12-02)
PROC: 0DHA8UZ Insertion of Feeding Device into Jejunum, Via Natural or Artificial Opening Endoscopic (ICD-10-PCS; 2019-12-04)
PROC: 0DB68ZZ Excision of Stomach, Via Natural or Artificial Opening Endoscopic (ICD-10-PCS; 2019-12-04 14:30)
DX: K31.1 Adult hypertrophic pyloric stenosis (principal); E43 Unspecified severe protein-calorie malnutrition; G82.50 Quadriplegia, unspecified; G93.1 Anoxic brain damage, not elsewhere classified; J96.10 Chronic respiratory failure, unspecified whether with hypoxia or hypercapnia; J90 Pleural effusion, not elsewhere classified; D68.59 Other primary thrombophilia; R65.10 Systemic inflammatory response syndrome (SIRS) of non-infectious origin without acute organ dysfunction; E87.0 Hyperosmolality and hypernatremia; Z68.41 Body mass index [BMI] 40.0-44.9, adult; E11.9 Type 2 diabetes mellitus without complications; K21.9 Gastro-esophageal reflux disease without esophagitis; I10 Essential (primary) hypertension; M48.56XA Collapsed vertebra, not elsewhere classified, lumbar region, initial encounter for fracture; K40.90 Unilateral inguinal hernia, without obstruction or gangrene, not specified as recurrent; K57.30 Diverticulosis of large intestine without perforation or abscess without bleeding; N20.0 Calculus of kidney; E11.43 Type 2 diabetes mellitus with diabetic autonomic (poly)neuropathy; K31.84 Gastroparesis; K59.00 Constipation, unspecified; K80.20 Calculus of gallbladder without cholecystitis without obstruction; E87.6 Hypokalemia; M81.0 Age-related osteoporosis without current pathological fracture; E66.8 Other obesity; J98.11 Atelectasis; F43.9 Reaction to severe stress, unspecified; D72.829 Elevated white blood cell count, unspecified; K31.7 Polyp of stomach and duodenum; F01.50 Vascular dementia, unspecified severity, without behavioral disturbance, psychotic disturbance, mood disturbance, and anxiety; Z87.442 Personal history of urinary calculi; Z79.899 Other long term (current) drug therapy; I69.311 Memory deficit following cerebral infarction; Z93.1 Gastrostomy status; Z93.0 Tracheostomy status; Y92.89 Other specified places as the place of occurrence of the external cause
CPT/HCPCS: 36415; 71045; 76705; 80048; 80053; 81001; 82150; 82948; 83036; 83605; 83690; 83735; 83880; 84100; 84436; 84439; 84443; 84479; 84484; 85025; 85610; 85730; 87040; 87070; 87081; 87086; 87186; 87205; 89220; 93005; 94003; 94640; 96361; 96374; 96375; 99285; C1751; C1758; C9113; J0360; J1610; J1644; J1815; J1940; J2001; J2250; J2765; J3010; J3370; J3480; J7030; J7060; J7620; Q0092

== ENCOUNTER 2020-04-01 17:27 | Inpatient (IN) | payer MEDICAID, SELFPAY ==
[~2020-04-01] VITALS: Ht 165.1 cm; Wt 76.7 kg
[2020-04-01 17:27] VITALS: BP 237/67
[~2020-04-01 17:27] MED LIST changes: +ACET-2619 GT; +ASCO500T45 GT; +CRAN450T5 GT; +D50SYR IVP; -ENAL-197 GT; -FENT25TD TD; -FER300L GT; -FOLI1TAB19 GT; +GLUC-805 FS; +HUMSLIDE SUBQ; +LACT1CAP92 GT; -MEDI30SO1 GT; +METO-485 GT; +NUTR-396 PO; -VIC GT; +[UNRECOGNIZED DRUG - CODE] GT; +[UNRECOGNIZED DRUG - OTHER] GT
[2020-04-01 17:40] VITALS: BP 237/69
--- NOTE | 2020-04-01 17:45 | NUR ---
PT BIBA FROM [facility] FOR G-TUBE DISPLACEMENT WHICH HAPPENED 15 MINS AGO. PER EMT, PT DOES NOT HAVE FEVER, COUGH, N/V/D. PT IS ON TRACH-VENT, NON-VERBAL, AND A&OX0 HER BASELINE. G-TUBE IS IN PLACE. HR EVEN AND REGULAR; PT DOES NOT HAVE FEVER, SOB, OR COUGH AT THIS TIME; PATIENT'S PAIN IS 0/10 ON FLACC SCALE AT THIS TIME; VSS; PATIENT POSITIONED FOR COMFORT; HOB ELEVATED; BEDRAILS UP X2; BED DOWN. ER MD MADE AWARE OF PT STATUS. PT IS IN THE ISOLATION ROOM.
--- NOTE | 2020-04-01 18:00 | NUR ---
SPOKE TO LAINEY FROM [facility] AND CONFIRMED THAT PT'S G-TUBE WAS ALMOST COMPLETELY OUT FOUND BY PRODUCTION CONTROL EXPERT INSTEAD OF DSYFUNCTION THE TRANSFERING REPORTS SHOWED.
--- NOTE | 2020-04-01 18:02 | NUR ---
PT'S BP 237/67MMHG. DR. BUNCH MADE AWARE.
[2020-04-01] MEDS ORDERED: hydrALAZINE 20 MG/ML VIAL IM ONE (18:05)
[2020-04-01] MEDS ORDERED: ACETAMINOPHEN 325 MG TAB PO PRN (18:20)
[2020-04-01] MEDS: DEXT 5% / NACL 0.9% 500 ML IV SCH (18:20)
[2020-04-01] MEDS ORDERED: ONDANSETRON 4 MG/2 ML VIAL IM/IVP PRN (18:20)
[2020-04-01] MEDS ORDERED: DOCUSATE SODIUM 100 MG GELCAP PO PRN (18:20)
[2020-04-01] MEDS ORDERED: HYDROcodone/APAP 5/325 MG 1 TAB TAB PO PRN (18:20)
[2020-04-01] MEDS ORDERED: MORPHINE SULFATE 2 MG/ML SYR IVP PRN (18:20)
--- NOTE | 2020-04-01 18:26 | NUR ---
LAB AT BEDSIDE
[2020-04-01 18:36] LABS: BASOPHILS % (AUTO) 0.3 % (0.0-2.0); EOSINOPHILS # (AUTO) 0.5 K/uL (0-0.4); HEMATOCRIT 32.7 % (36-48); HEMOGLOBIN 10.5 g/dL (12.0-16.0); LYMPHOCYTES # (AUTO) 3.5 K/uL (2.5-16.5); LYMPHOCYTES % (AUTO) 51.3 % (20.5-51.1); MEAN CORPUSCULAR HEMOGLOBIN 29 pg (27-31); MEAN CORPUSCULAR HGB CONC 32 g/dL (33-37); MEAN CORPUSCULAR VOLUME 90.1 fL (80-94); MONOCYTES # (AUTO) 0.5 K/uL (0.8-1.0); MONOCYTES % (AUTO) 6.6 % (1.7-9.3); NEUTROPHILS # (AUTO) 2.4 K/uL (1.8-7.7); NEUTROPHILS % (AUTO) 34.8 % (42.2-75.2); PLATELET COUNT (AUTO) 196 K/uL (140-450); RED BLOOD CELL COUNT(AUTO) 3.63 MIL/uL (4.20-5.40); RED CELL DISTRIBUTION WIDTH 14.2 % (11.6-13.7); WHITE BLOOD COUNT (AUTO) 6.8 K/uL (4.8-10.8)
[2020-04-01 18:54] LABS: ALBUMIN 3.1 g/dL (3.4-5.0); ANION GAP 4.6 (8-16); ASPARTATE AMINOTRANSFERASE 17 U/L (15-37); CARBON DIOXIDE 38.8 mmol/L (21-32); CHLORIDE 103 mmol/L (98-107); CREATININE 0.6 mg/dL (0.6-1.3); GLUCOSE 109 mg/dL (74-106); LIPASE 169 U/L (73-393); POTASSIUM 3.4 mmol/L (3.5-5.1); SODIUM SERUM 143 mmol/L (136-145); TOTAL BILIRUBIN 0.3 mg/dL (0.0-1.0); UREA NITROGEN, BLOOD 37 mg/dL (7-18)
[2020-04-01] MEDS ORDERED: METOPROLOL 5 MG/5 ML VIAL IVP ONE ×2 (19:00→19:35)
--- NOTE | 2020-04-01 19:01 | NUR ---
PT'S BP IS 227/67MMHG. RESIDENT OF DR. VICENTE NOTIFIED VIA # [id number].
[2020-04-01 19:09] LABS: PROTHROMBIN TIME 10.2 secs (10.8-13.4)
--- NOTE | 2020-04-01 19:10 | NUR ---
Pt report given to FATIMAH De La Rosa. Transfer of care at this time.
--- NOTE | 2020-04-01 19:11 | NUR ---
Attending physician is evaluating pt at bedside.
[2020-04-01 19:23] LABS: MAGNESIUM 2.6 mg/dL (1.8-2.4); PHOSPHORUS 3.7 mg/dL (2.5-4.9); THYROID STIMULATING HORMONE 3.47 uIU/mL (0.34-3.74)
[2020-04-01] MEDS ORDERED: hydrALAZINE 20 MG/ML VIAL IVP PRN (19:30)
[2020-04-01 19:50] VITALS: BP 163/42
[2020-04-01] MEDS ORDERED: hydrALAZINE 20 MG/ML VIAL ONE (20:00)
--- NOTE | 2020-04-01 20:07 | NUR ---
B/P 210/62, MEDICATED ORDERED BY MD VICENTE (ADMIT ORDERS)
[2020-04-01] MEDS ORDERED: INSULIN LISPRO SLIDING SCALE 100 UNITS/ML VIAL SUBQ PRN (20:10)
[2020-04-01] MEDS ORDERED: DEXTROSE 50% 50 ML SYR IVP PRN (20:10)
--- NOTE | 2020-04-01 20:31 | NUR ---
B/P 163/42
--- NOTE | 2020-04-01 20:40 | NUR ---
RESPIRATORY AT BEDSIDE
[2020-04-01] MEDS: BLOOD GLUCOSE MONITORING 1 DEV DEV FS SCH (21:00)
[2020-04-01] MEDS ORDERED: POLYVINYL ALCOHOL 1.4% OP 15 ML SOL OP SCH (21:00)
[2020-04-01 21:30] VITALS: BP 163/42
--- NOTE | 2020-04-01 21:45 | NUR ---
ADMITTED 74 Y/O FEMALE VIA GURNEY FROM E. PATIENT TRANSFERRED SAFELY TO BED FROM [facility]. WITH TRACH CONNECTED TO VENT. RESPIRATION EVEN AND UNLABORED. NO DISTRESS NOTED. FALL RISK PROTOCOL IN PLACE. DROPLET ISOLATION PRECAUTION IN PLACE. PATIENT IS R/O COVID 19. WITH LEFT HAND 22 G IV SITE, INTACT AND PATENT. RESIDENT DOCTOR REMOVED THE OLD G TUBE AND REPLACED IT WITH A NEW G-TUBE. SKIN INTACT. V/S TAKEN 146/85. 73. 98.1, 16. 97%. INITIAL ASSESSMENT DONE. KEPT CLEAN AND DRY. CALL LIGHT WITHIN REACH. WILL CONTINUE TO MONITOR.
--- NOTE | 2020-04-01 21:55 | NUR ---
Patient will be admitted to care of DR VICENTE. Admited to TELE. Will go to room 123A. Belongings list completed. Report to KISHAN SHERIDAN.
--- NOTE | 2020-04-01 22:00 | NUR ---
ARTIFICIAL TEARS EYE DROP WAS NOT ADMINISTERED DUE TO UNAVAILABILITY OF MEDS.
[2020-04-02] VITALS (7 sets, daily range): BP systolic 62–165; BP diastolic 41–88
--- NOTE | 2020-04-02 00:30 | NUR ---
SUCTIONED PATIENT, TOLERATED WELL. NO SOB. WILL CONTINUE TO MONITOR.
--- NOTE | 2020-04-02 02:30 | NUR ---
PATIENT SLEEPING. RESPIRATION EVEN AND UNLABORED. WILL CONTINUE TO MONITOR
[2020-04-02] MEDS: ALBUTEROL HFA MDI 90 MCG/ACTUATION 8 GM INH PRN ×2 (05:57→12:01)
[2020-04-02 06:13] LABS: ANION GAP 9.6 (8-16); CARBON DIOXIDE 35.5 mmol/L (21-32); CHLORIDE 102 mmol/L (98-107); CREATININE 0.8 mg/dL (0.6-1.3); GLUCOSE 127 mg/dL (74-106); POTASSIUM 3.1 mmol/L (3.5-5.1); SODIUM SERUM 144 mmol/L (136-145); UREA NITROGEN, BLOOD 34 mg/dL (7-18)
[2020-04-02 06:17] LABS: BASOPHILS % (AUTO) 0.6 % (0.0-2.0); EOSINOPHILS # (AUTO) 0.1 K/uL (0-0.4); EOSINOPHILS % (AUTO) 1.4 % (0.0-4.0); HEMATOCRIT 34.4 % (36-48); HEMOGLOBIN 11.1 g/dL (12.0-16.0); LYMPHOCYTES # (AUTO) 2.6 K/uL (2.5-16.5); LYMPHOCYTES % (AUTO) 30.6 % (20.5-51.1); MEAN CORPUSCULAR HEMOGLOBIN 29 pg (27-31); MEAN CORPUSCULAR HGB CONC 32 g/dL (33-37); MEAN CORPUSCULAR VOLUME 90.1 fL (80-94); MONOCYTES # (AUTO) 0.5 K/uL (0.8-1.0); MONOCYTES % (AUTO) 5.3 % (1.7-9.3); NEUTROPHILS # (AUTO) 5.3 K/uL (1.8-7.7); NEUTROPHILS % (AUTO) 62.1 % (42.2-75.2); PLATELET COUNT (AUTO) 112 K/uL (140-450); RED BLOOD CELL COUNT(AUTO) 3.82 MIL/uL (4.20-5.40); RED CELL DISTRIBUTION WIDTH 14.2 % (11.6-13.7); WHITE BLOOD COUNT (AUTO) 8.6 K/uL (4.8-10.8)
[2020-04-02] MEDS: BLOOD GLUCOSE MONITORING 1 DEV DEV FS SCH ×4 (06:17→20:51)
--- NOTE | 2020-04-02 06:17 | NUR ---
BS CHECKED 114. NO COV. WILL CONTINUE TO MONITOR.
[2020-04-02 06:21] LABS: CHOL/HDL RATIO 2.6 (1-4.5); MAGNESIUM 2.5 mg/dL (1.8-2.4)
[2020-04-02] MEDS: DEXT 5% / NACL 0.9% 500 ML IV SCH (06:55)
--- NOTE | 2020-04-02 07:15 | NUR ---
ENDORSED PATIENT TO AM SHIFT RN FOR CONTINUITY OF CARE. PATIENT IS NOT IN ANY ACUTE DISTRESS.
--- NOTE | 2020-04-02 07:20 | NUR ---
RECEIVED REPORT FROM DIRECTOR OF INFECTION CONTROL NURSE. PT IS CURRENTLY ASLEEP. PT IS IN NO SIGNS OF DISTRESS OR COMPLAINTS OF PAIN AT THIS TIME. RESPIRATIONS ARE EVEN AND UNLABORED TRACH TO VENT, O2 SATURATIONS ARE 98%. SKIN IS INTACT WITH IV ASYMPTOMATIC PATENT AND INFUSING PER ORDER. SAFETY MEASURES IN PLACE, BED IS IN LOW SEMI-FOWLERS POSITION, AND WILL CONTINUE TO MONITOR.
--- NOTE | 2020-04-02 08:04 | NUR ---
RECEIVED ON A Kids Note[employer]APE R860 VENTILATOR PLUGGED INTO RED OUTLET TOLERATING WELL WITHOUT ADVERSE REACTIONS NOTED TO A PORTEX DCT #7 AIRWAY SECURED WITH A DANITA TRACH TIE CUFF PRESSURE CHECKED NOTED BEDSIDE VITALS MONITOR IN USE ON AND FUNCTIONING WELL AMBU BAG AT BEDSIDE STABLE GOOD CHEST RISE DEEP TRACHEAL SUCTION FOR LARGE THIN TO FROTHY PALE YELLOW SECRETIONS AIRWAY PATENT
[2020-04-02] MEDS ORDERED: METOCLOPRAMIDE 10 MG/2 ML INJ VIAL IVP SCH (09:00)
[2020-04-02] MEDS ORDERED: FUROSEMIDE 20 MG/2 ML VIAL IVP SCH (09:00)
--- NOTE | 2020-04-02 09:15 | NUR ---
PATIENT HAS BEEN SCREENED AND CATEGORIZED HIGH NUTRITION RISK. PATIENT WILL BE SEEN WITHIN 1-2 DAYS OF ADMISSION. 04/02/20-04/03/[address]
[2020-04-02] MEDS ORDERED: CRUSHER, PILL MC ONE (09:23)
[2020-04-02] MEDS: PANTOPRAZOLE 40 MG INJ VIAL IVP SCH (09:25)
[2020-04-02] MEDS: ASCORBIC ACID 500 MG TAB GT SCH (09:26)
--- NOTE | 2020-04-02 09:45 | NUR ---
ADMINISTERED MEDICATIONS PER ORDER AND TOLERATED WELL. PT IS CURRENTLY IS IN NO SIGNS OF DISTRESS AT THIS TIME. RESPIRATORY IS AT BEDSIDE, SAFETY MEASURES IN PLACE AND WILL CONTINUE TO MONITOR.
--- NOTE | 2020-04-02 09:48 | NUR ---
RESTING COMFORTABLY GOOD CHEST RISE DEEP TRACHEAL SUCTION FOR SMALL THIN TO FROTHY PALE YELLOW SECRETIONS AIRWAY PATENT
[2020-04-02] MEDS: POLYVINYL ALCOHOL 1.4% OP 15 ML SOL OP SCH ×2 (09:51→20:55)
--- NOTE | 2020-04-02 09:54 | NUR ---
SPEED W[facility]ER NOTE: Basic Screen: Yes High Risk DC Screen [place]: DENISSE FERNANDEZ Home Relationship: DAUGHTER Pre-Admission Living Arrangements: SNF Other: [facility] Prior ADL Total/Dependent Current Home Health Name/Tel: N/A Current DME/02 Name/Tel: VENTILATOR Current Hospice Name/Tel: N/A Current Dialysis Name/Tel: N/A Healthcare Decision Maker: Patient Advance Directive No Physician Orders for Life Sustaining Treatment Form No Patient/Family Have Educational Needs No Discipline: Case Mgt/Social Svcs Tentative Discharge Plan/Destination: SNF/ECF Other: [facility] Will require assistance post discharge: No Referred to [facility]: No Tentative Discharge Plan Summary: PATIENT IS A 74-YEAR-OLD MALE ADMITTED FOR G TUBE MALFUNCTION. PATIENT HAS PMHX OF CHRONIC RESPIRATORY FAILURE, DYSPHAGIA, CEREBROVASCULAR DISEASE, DEMENTIA, QUADRIPLEGIA, HTN, GERD, OSTEOPOROSIS, AND DM. PATIENT WAS ADMITTED FROM [facility]. CONTACTED STARR FROM [facility] [phone]. PER STARR, PATIENT IS SKILLED NURSING AND IS CURRENTLY ON A BED HOLD. STARR STATED THAT PATIENT NOT ALERT/ORIENTED AT BASELINE AND PATIENT REQUIRES TOTAL ASSISTANCE WITH ADLS. TENTATIVE DISCHARGE PLAN IS FOR PATIENT TO RETURN TO [facility]. NO FURTHER NEEDS IDENTIFIED. Signature: LG CONNORS Date: Apr 02, 2020 Time: 09:48
--- NOTE | 2020-04-02 11:49 | NUR ---
DC PLANN[age] YRS OLD FEMALE PATIENT WAS [place] [facility] [place] DX OF G-TUBE MALFUNCTION . PT HAS A HX OF CVA WITH ANOXIC BRAIN INJURY ,DM, DYSPHAGIA AND CHRONIC RESP FAILURE ON TRACH TO VENT. STARTED IVF, RT FOR BELEN SETTING .CONSULTED WITH GI DR LAM AND PULMO DR MCNULTY FOR PULMONARY STATUS AND VENTILATOR MANAGEMENT. DC PLAN TO GO BACK [place] [facility] [place] CM TO FOLLOW Addendum: 04/03/20 at 1449 by Aleyda Mcpherson CM DC PLANNINST COVID NEGATIVE 2ND COVID TEST PENDING .REPLACED G-TUBE AND FEEDING STARTED TOLERATED WELL.SEEN BY FELIZ CONTINUE BRONCHODILATOR NEEDED AND MECHANICAL VENTILATION SUPPORT CM TO FOLLOW. Addendum: 04/04/20 at 1025 by Hannah Claudio CM D/C [place] [facility] [place] FA[place] CL[place]ICALS [place] [facility] WILL FOLLOW UP. Addendum: 04/04/20 at 1154 by Hannah Claudio CM SPOKE TO BC AT [facility] SHE IS TALKING TO HER PEDIATRIC GENETICIST REGARDING THE PATIENTS TEMPERATURE WHICH READ YESTERDAY AT 99.9. Addendum: 04/04/20 at 1322 by Hannah Claudio CM PATIENT HAS BEEN ACCEPTED TO GO BACK [place] [facility] [place] ROOM [address] KEYS. Addendum: 04/04/20 at 1338 by Hannah Claudio CM SPOKE TO MIRNA WITH [facility] WILL BE HERE FOR PATIENT AT 3:00 PM. NOTIFIED BC AT [facility] AND FATIMAH FOY Addendum: 04/04/20 at 1342 by Hannah Claudio CM FAXED [facility] NECESSITY FORM TO [facility]
--- NOTE | 2020-04-02 11:50 | NUR ---
JUST FINISHED CHANGING PATIENT. PT VOIDED AND HAD SMALL BM. BLOOD GLUCOSE IS 99 THEREFORE NO INSULIN COVERAGE IS NEEDED AT THIS TIME. PT IS IN NO SIGNS OF DISTRESS AT THIS TIME. SAFETY MEASURES IN PLACE AND WILL CONTINUE TO MONITOR.
--- NOTE | 2020-04-02 12:01 | NUR ---
GOOD CHEST RISE DEEP TRACHEAL SUCTION FOR SMALL THIN PALE YELLOW SECRETINS AIRWAY PATENT
--- NOTE | 2020-04-02 12:35 | NUR ---
04/02/20 RD INITIAL ASSESSMENT COMPLETED PLEASE REFER TO NUTRITION ASSESSMENT UNDER CARE ACTIVITY FOR ESTIMATED NUTRITIONAL NEEDS. 1. RECOMMEND GLUCERNA 1.2 @ 55 ML/HR X 24 HR -THIS WILL PROVIDE 1320 ML OF VOLUME, 1584 CALORIES AND 79 GM OF PROTEIN WHICH WILL MEET ADEQUATE NUTRITION NEEDS 2. RECOMMEND FREE WATER FLUSH 130 ML Q4H 3. CONTINUE VITAMIN C 4. RD TO FOLLOW-UP 2-3 DAYS, HIGH RISK MARIA ELENA LEMA RD
--- NOTE | 2020-04-02 13:20 | NUR ---
PT IS CURRENTLY IN NO SIGNS OF DISTRESS AT THIS TIME VIA FLACC-0. RESPIRATORY THERAPIST IS AT BEDSIDE. SAFETY MEASURES IN PLACE AND WILL CONTINUE TO MONITOR.
--- NOTE | 2020-04-02 13:32 | NUR ---
NO RESPIRATORY DISTRESS NOTED EQUAL CHEST RISE
[2020-04-02] MEDS ORDERED: POTASSIUM CHLORIDE 20% 40 MEQ/15 ML UDC GT SCH (14:00)
[2020-04-02] MEDS: amLODIPine 5 MG TAB GT SCH (15:15)
--- NOTE | 2020-04-02 15:47 | NUR ---
NO APPARENT DISTRESS NOTED GOOD CHEST RISE
--- NOTE | 2020-04-02 15:48 | NUR ---
ADMINISTERED MEDICATIONS PER ORDER AND TOLERATED WELL. G-TUBE FEEDING HAS BEEN STARTED PER ORDERS. PT IS IN NO SIGNS OF DISTRESS. SAFETY MEASURES IN PLACE AND WILL CONTINUE TO MONITOR.
--- NOTE | 2020-04-02 16:56 | NUR ---
PT HAS BEEN CHANGED DUE TO VOID. BLOOD GLUCOSE IS 105 THEREFORE NO INSULIN COVERAGE IS NEEDED AT THIS TIME. PT IS IN NO SIGNS OF DISTRESS. SAFETY MEASURES IN PLACE AND WILL CONTINUE TO MONITOR.
[2020-04-02] MEDS ORDERED: ERYTHROMYCIN 250 MG TABEC PO SCH ×2 (17:00)
--- NOTE | 2020-04-02 17:40 | NUR ---
NO SOB NOTED GOOD CHEST RISE DEEP TRACHEAL SUCTION FOR MODERATE THIN TO FROTHY PALE YELLOW SECRETIONS AIRWAY PATENT
--- NOTE | 2020-04-02 17:55 | NUR ---
RESPIRATORY THERAPISTS IS AT BEDSIDE. PT IS IN NO SIGNS OF DISTRESS AT THIS TIME. MEDICATIONS WERE ADMINISTERED PER ORDER AND TOLERATED WELL. SAFETY MEASURES IN PLACE AND WILL CONTINUE TO MONITOR.
[2020-04-02] MEDS: NACL 0.9% 1,000 ML IV SCH (17:56)
--- NOTE | 2020-04-02 18:29 | NUR ---
FIRST ZEPEDA VIRUS SWAB CAME BACK NEGATIVE. SECOND SWAB HAS NOW BEEN COMPLETED. PT IS IN NO SIGNS OF DISTRESS AT THIS TIME. SAFETY MEASURES IN PLACE, CONTINUE TO MONITOR, AND WILL ENDORSE TO BINDING CUTTER SYNTHETIC CLOTH NURSE FOR CONTINUITY OF CARE.
--- NOTE | 2020-04-02 19:10 | NUR ---
RECEIVED REPORT FROM DAY SHIFT NURSE. PT IS IN BED RESTING WITH HOB ELEVATED. RESPIRATIONS EVEN AND UNLABORED. PT HAS TRACH CONNECTED TO VENT. 2ND SWAB FOR COVID TEST WAS TAKEN TODAY. DROPLET PRECAUTIONS IN PLACE. ABDOMEN IS SOFT AND NON-TENDER. GTUBE IN PLACE. FEEDING ONGOING AND TO BE TITRATED. PT IS INCONTINENT. IV ACCESS ON L HAND G22 PATENT AND INTACT. IVF INFUSING WELL. NO S/SX OF PAIN OR DISTRESS NOTED AT THIS TIME. SAFETY MEASURES IN PLACE. BED IN LOW POSITION, SIDE RAILS RAISED, CALL LIGHT WITHIN REACH. WILL CONTINUE TO MONITOR.
[2020-04-02] MEDS: SIMVASTATIN 10 MG TAB GT SCH (20:55)
--- NOTE | 2020-04-02 21:00 | NUR ---
VS STABLE. SCHEDULED MEDS GIVEN ORDERED. BLOOD SUGAR 95. NO COVERAGE NEEDED. GTUBE IN PLACE. NO RESIDUAL NOTED. FEEDING INCREASED TO 20ML/HR ORDERED. PT TOLERATED CARE PROVIDED. PT KEPT COMFORTABLE. SAFETY MEASURES IN PLACE. WILL CONTINUE TO MONITOR.
--- NOTE | 2020-04-02 22:25 | NUR ---
ROUNDS MADE. PT IN BED. TRACH CONNECTED TO VENT. O2 SAT 98%. PT NOT IN DISTRESS. PT TURNED TO SIDE. SAFETY MEASURES IN PLACE. WILL CONTINUE TO MONITOR.
[2020-04-03] VITALS: BP 138/62
--- NOTE | 2020-04-03 00:15 | NUR ---
VITALS STABLE. TRACH CONNECTED TO VENT. O2 SAT 98%. PT NOT IN DISTRESS. PERINEAL CARE DONE. PT TOLERATED PROCEDURE. GTUBE IN PLACE WITH ONGOING FEEDING. SAFETY MEASURES IN PLACE. WILL CONTINUE TO MONITOR.
--- NOTE | 2020-04-03 03:00 | NUR ---
20ML RESIDUAL OBTAINED. TUBE FEEDING SETTING CHANGED TO 30/HR. PT TOLERATES FEEDING WELL. WILL CONTINUE TO MONITOR.
[2020-04-03 04:00] VITALS: BP 145/70
--- NOTE | 2020-04-03 04:08 | NUR ---
VITAL SIGNS STABLE. TRACH CONNECTED TO VENT. RESPIRATIONS EVEN AND UNLABORED. O2 SAT 99%. PT TOLERATES TUBE FEEDING WELL. SAFETY MEASURES IN PLACE. WILL CONTINUE TO MONITOR.
[2020-04-03] MEDS: BLOOD GLUCOSE MONITORING 1 DEV DEV FS SCH ×4 (06:04→21:11)
--- NOTE | 2020-04-03 06:09 | NUR ---
BLOOD SUGAR 103. NO INSULIN COVERAGE NEEDED. PT STILL ON CONTINUOUS GTUBE FEEDING. WILL CONTINUE TO MONITOR.
--- NOTE | 2020-04-03 07:08 | NUR ---
ENDORSED TO DAY SHIFT NURSE FOR CONTINUITY OF CARE. PT IN STABLE CONDITION.
--- NOTE | 2020-04-03 07:22 | NUR ---
RECEIVED REPORT FROM CLOTHING AND TEXTILES TEACHER NURSE FOR CONTINUITY OF CARE. A&OX1; APHASIC. RESPIRATIONS EVEN AND UNLABORED; TRACH TO VENT. L HAND 24G IV IS PATENT AND INTACT, RUNNING PER ORDERS. G-TUBE FEEDING; GLUCERNA 1.2. QUADRIPLEGIC. REVIEWED PLAN OF CARE, PT UNABLE TO COMPREHEND. TELE MONITOR ATTACHED. SAFETY MEASURES IN PLACE; CALL LIGHT WITHIN REACH BED IN LOW POSITION. NO DISTRESS NOTED. WILL CONTINUE TO MONITOR.
[2020-04-03 08:00] VITALS: BP 161/55
--- NOTE | 2020-04-03 08:00 | NUR ---
RECEIVED ON A [employer] R860 VENTILATOR PLUGGED INTO RED OUTLET TOLERATING WELL WITHOUT ADVERSE REACTIONS NOTED TO A PORTEX DCT #7 AIRWAY SECURED WITH A DANITA TRACH TIE CUFF PRESSURE CHECKED NOTED AMBU BAG AT BEDSIDE RESTING WELL GOOD CHEST RISE DEEP TRACHEAL SUCTION FOR LARGE THIN TO FROTHY PALE YELLOW SECRETIONS AIRWAY PATENT
--- NOTE | 2020-04-03 08:00 | NUR ---
JOSE ARMANDO RADICAL-7 CONTINUOS PULSE OXIMETER AT BEDSIDE ON AND FUNCTIONING WELL LOW SATURATIN ALARM SET AT 92%
[2020-04-03 08:23] LABS: BASOPHILS # (AUTO) 0.1 K/uL (0.00-0.22); BASOPHILS % (AUTO) 0.9 % (0.0-2.0); EOSINOPHILS # (AUTO) 0.4 K/uL (0-0.4); EOSINOPHILS % (AUTO) 5.7 % (0.0-4.0); HEMATOCRIT 28.3 % (36-48); HEMOGLOBIN 9.3 g/dL (12.0-16.0); LYMPHOCYTES # (AUTO) 3.7 K/uL (2.5-16.5); LYMPHOCYTES % (AUTO) 53.9 % (20.5-51.1); MEAN CORPUSCULAR HEMOGLOBIN 29 pg (27-31); MEAN CORPUSCULAR HGB CONC 33 g/dL (33-37); MEAN CORPUSCULAR VOLUME 89.5 fL (80-94); MONOCYTES # (AUTO) 0.7 K/uL (0.8-1.0); MONOCYTES % (AUTO) 10.4 % (1.7-9.3); NEUTROPHILS % (AUTO) 29.1 % (42.2-75.2); PLATELET COUNT (AUTO) 193 K/uL (140-450); RED BLOOD CELL COUNT(AUTO) 3.16 MIL/uL (4.20-5.40); RED CELL DISTRIBUTION WIDTH 14.5 % (11.6-13.7)
[2020-04-03 08:56] LABS: CHLORIDE 105 mmol/L (98-107); CREATININE 0.9 mg/dL (0.6-1.3); GLUCOSE 113 mg/dL (74-106); SODIUM SERUM 145 mmol/L (136-145); UREA NITROGEN, BLOOD 32 mg/dL (7-18)
[2020-04-03] MEDS: POLYVINYL ALCOHOL 1.4% OP 15 ML SOL OP SCH ×2 (09:00→21:11)
--- NOTE | 2020-04-03 09:46 | NUR ---
RESTING WELL NO APPARENT RESPIRATORY DISTRESS NOTED EQUAL CHEST RISE AIRWAY PATENT
[2020-04-03] MEDS: POTASSIUM CHLORIDE 20% 40 MEQ/15 ML UDC GT SCH (09:59)
[2020-04-03] MEDS: ERYTHROMYCIN ETHYLSUCCINATE SUSP 200 MG/5 ML UDC GT SCH ×3 (09:59→17:13)
[2020-04-03] MEDS: amLODIPine 5 MG TAB GT SCH ×2 (10:00→10:03)
[2020-04-03] MEDS: PANTOPRAZOLE 40 MG INJ VIAL IVP SCH (10:00)
[2020-04-03] MEDS: ASCORBIC ACID 500 MG TAB GT SCH (10:03)
[2020-04-03] MEDS: glipiZIDE 5 MG TAB GT SCH (10:03)
--- NOTE | 2020-04-03 10:25 | NUR ---
G-TUBE ASPIRATED; 25 ML OF RESIDUAL NOTED. SCHEDULED MEDICATIONS ADMINISTERED, G-TUBE FLUSHED PRIOR TO AND AFTER MEDICATION ADMINISTRATION. BP: 161/55; PULSE: 75. TUBE FEEDING RATE INCREASED TO 40 ML/HR. NO ACUTE DISTRESS NOTED. SAFETY MEASURES IN PLACE. TELE MONITOR ATTACHED. WILL CONTINUE TO MONITOR.
--- NOTE | 2020-04-03 11:40 | NUR ---
NO APPARENT DISTRESS NOTED GOOD CHEST RISE DEEP TRACHEAL SUCTION FOR LARGE THIN TO FROTHY YELLOW SECRETIONS AIRWAY PATENT
--- NOTE | 2020-04-03 11:45 | NUR ---
BLOOD SUGAR CHECKED; BGL: 72.
[2020-04-03 12:00] VITALS: BP 159/62
[2020-04-03] MEDS: NACL 0.9% 1,000 ML IV SCH (15:54)
--- NOTE | 2020-04-03 15:58 | NUR ---
NO DISTRESS NOTED GOOD CHEST RISE
[2020-04-03 16:00] VITALS: BP 165/57
--- NOTE | 2020-04-03 16:59 | NUR ---
GAVE BEDSIDE REPORT TO KRES[facility] EYE INSTITUTEFT NURSE, FOR CONTINUITY OF CARE. PT IS IN STABLE CONDITION. Addendum: 04/03/20 at 2002 by Martha yLon RN TIME CORRECTION *[id number]*
--- NOTE | 2020-04-03 17:15 | NUR ---
RESTING COMFORTABLY GOOD CHEST RISE DEEP TRACHEAL SUCTION FOR MODERATE FROTHY YELLOW SECRETIONS AIRWAY PATENT
--- NOTE | 2020-04-03 17:15 | NUR ---
SCHEDULED ANTIBIOTIC ADMINISTERED VIA G-TUBE. RESIDUAL <30 ML. G-TUBE FLUSHED BEFORE AND AFTER MEDICATION ADMINISTRATION. RT AT BEDSIDE. NO ACUTE DISTRESS NOTED. SAFETY MEASURES IN PLACE. TELE MONITOR ATTACHED. WILL CONTINUE TO MONITOR.
--- NOTE | 2020-04-03 19:00 | NUR ---
RECEIVED BEDSIDE REPORT FROM DAY SHIFT NURSE. PATIENT IS AWAKE RESPIRATORY EVEN UNLABORED ON TRACH TO VENT. NO DISTRESS NOTED. SKIN IS WARM AND DRY. IV PATENT AND INTACT. G-TUBE FEEDING NOTED RUNNING AT 40CC. PLAN OF CARE WAS DISCUSSED. ALL SAFETY MEASURES IN PLACE. BED IS AT LOW POSITION. CALL LIGHT WITHIN REACH. WILL CONTINUE TO MONITOR.
[2020-04-03 20:00] VITALS: BP 152/62
--- NOTE | 2020-04-03 20:05 | NUR ---
INITIAL ASSESSMENT DONE. VITALS WERE TAKEN. CHECKED G-TUBE RESIDUAL. OBTAINED 5CC. SUCTIONED PATIENT OBTAINED SMALL AMOUNT OF CREAMY SECRETION. PATIENT IN STABLE CONDITION. NO DISTRESS NOTED. WILL CONTINUE TO MONITOR.
[2020-04-03] MEDS: SIMVASTATIN 10 MG TAB GT SCH (20:57)
--- NOTE | 2020-04-03 21:11 | NUR ---
ALL SCHEDULED MEDS WERE GIVEN PER ORDER. NO ASE NOTED. WILL CONTINUE TO MONITOR.
--- NOTE | 2020-04-03 23:10 | NUR ---
CHECKED PATIENT. PATIENT SLEEPING RESPIRATION EVEN UNLABORED ON TRACT TO VENT. NO DISTRESS NOTED. WILL CONTINUE TO MONITOR.
[2020-04-04] VITALS: BP 122/69
--- NOTE | 2020-04-04 | NUR ---
VITALS WERE TAKEN. PATIENT IN STABLE CONDITION. NO DISTRESS NOTED. WILL CONTINUE TO MONITOR.
--- NOTE | 2020-04-04 02:00 | NUR ---
SUCTIONED PATIENT. OBTAINED SMALL AMOUNT OF SECRETION. WILL CONTINUE TO MONITOR.
[2020-04-04 04:00] VITALS: BP 119/42
--- NOTE | 2020-04-04 04:00 | NUR ---
VITALS WERE TAKEN. PROVIDED PATIENT ORAL CARE. SUCTIONED PATIENT. OBTAINED SMALL AMOUNT OF CREAMY WHITE SECRETION. PROVIDED GOOD PERICARE. PATIENT TOLERATED ALL THE TREATMENT. WILL CONTINUE TO MONITOR.
[2020-04-04 06:09] LABS: BASOPHILS # (AUTO) 0.1 K/uL (0.00-0.22); BASOPHILS % (AUTO) 0.9 % (0.0-2.0); EOSINOPHILS # (AUTO) 0.6 K/uL (0-0.4); EOSINOPHILS % (AUTO) 8.1 % (0.0-4.0); HEMATOCRIT 31.1 % (36-48); HEMOGLOBIN 10.1 g/dL (12.0-16.0); LYMPHOCYTES # (AUTO) 3.2 K/uL (2.5-16.5); LYMPHOCYTES % (AUTO) 46.3 % (20.5-51.1); MEAN CORPUSCULAR HEMOGLOBIN 29 pg (27-31); MEAN CORPUSCULAR HGB CONC 32 g/dL (33-37); MEAN CORPUSCULAR VOLUME 90.4 fL (80-94); MONOCYTES # (AUTO) 0.7 K/uL (0.8-1.0); MONOCYTES % (AUTO) 9.5 % (1.7-9.3); NEUTROPHILS # (AUTO) 2.4 K/uL (1.8-7.7); NEUTROPHILS % (AUTO) 35.2 % (42.2-75.2); PLATELET COUNT (AUTO) 126 K/uL (140-450); RED BLOOD CELL COUNT(AUTO) 3.44 MIL/uL (4.20-5.40); RED CELL DISTRIBUTION WIDTH 14.8 % (11.6-13.7); WHITE BLOOD COUNT (AUTO) 6.8 K/uL (4.8-10.8)
[2020-04-04] MEDS ORDERED: KCL 20 MEQ/WATER INJ PREMIX 200 ML IV PRN (06:40)
[2020-04-04] MEDS: BLOOD GLUCOSE MONITORING 1 DEV DEV FS SCH ×2 (06:47→11:30)
[2020-04-04 07:02] LABS: ANION GAP 10.9 (8-16); CARBON DIOXIDE 31.5 mmol/L (21-32); CHLORIDE 108 mmol/L (98-107); CREATININE 0.8 mg/dL (0.6-1.3); GLUCOSE 112 mg/dL (74-106); POTASSIUM 3.4 mmol/L (3.5-5.1); SODIUM SERUM 147 mmol/L (136-145); UREA NITROGEN, BLOOD 31 mg/dL (7-18)
--- NOTE | 2020-04-04 07:12 | NUR ---
ENDORSED PATIENT TO DAY SHIFT NURSE. PATIENT IN STABLE CONDITION.
--- NOTE | 2020-04-04 07:13 | NUR ---
RECEIVED REPORT FROM INSURANCE SALES SUPERVISOR NURSE FOR CONTINUITY OF CARE. A&OX1; APHASIC. RESPIRATIONS EVEN AND UNLABORED; TRACH TO VENT. L HAND 24G IV IS PATENT AND INTACT, RUNNING PER ORDERS. G-TUBE FEEDING; GLUCERNA 1.2 IS RUNNING AT 40 ML/HR. PT IS QUADRIPLEGIC. REVIEWED PLAN OF CARE, PT UNABLE TO COMPREHEND. TELE MONITOR ATTACHED. SAFETY MEASURES IN PLACE; CALL LIGHT WITHIN REACH BED IN LOW POSITION. NO DISTRESS NOTED. WILL CONTINUE TO MONITOR.
[2020-04-04 08:00] VITALS: BP 159/57
[2020-04-04] MEDS: POLYVINYL ALCOHOL 1.4% OP 15 ML SOL OP SCH (09:50)
[2020-04-04] MEDS: PANTOPRAZOLE 40 MG INJ VIAL IVP SCH (09:50)
[2020-04-04] MEDS: ASCORBIC ACID 500 MG TAB GT SCH (09:51)
[2020-04-04] MEDS: amLODIPine 5 MG TAB GT SCH (09:51)
[2020-04-04] MEDS: POTASSIUM CHLORIDE 20% 40 MEQ/15 ML UDC GT SCH (09:52)
[2020-04-04] MEDS: ERYTHROMYCIN ETHYLSUCCINATE SUSP 200 MG/5 ML UDC GT SCH ×2 (09:54→12:50)
[2020-04-04] MEDS: glipiZIDE 5 MG TAB GT SCH (09:54)
[2020-04-04] MEDS ORDERED: ERY250 PO (10:27)
--- NOTE | 2020-04-04 12:15 | NUR ---
PT'S BLOOD SUGAR CHECKED; BGL: 67. PER PROTOCOL, 25 G 50% DEXTROSE ADMINISTERED IVP. ORDERED ANTIBIOTIC ALSO ADMINISTERED VIA G-TUBE. G-TUBE FLUSHED BEFORE AND AFTER ADMINISTRATION. ASSISTED SUPERVISOR PLASTERING TO CLEAN AND CHANGE PATIENT. G-TUBE FEEDING AND IV FLUIDS ARE RUNNING ORDERED. NO ACUTE DISTRESS NOTED. SAFETY MEASURES IN PLACE. TELE MONITOR ATTACHED. WILL CONTINUE TO MONITOR.
--- NOTE | 2020-04-04 14:21 | NUR ---
CALLED [facility] TO GIVE REPORT FOR UPCOMING TRANSFER TO THEIR FACILITY TODAY. REPORT GIVEN TO
--- NOTE | 2020-04-04 14:24 | NUR ---
ATTEMPTED TO CALL PT'S DAUGHTER, NAHED, AND SON, MICHAEL TO INFORM THEM OF PT'S TRANSFER TO [facility] TODAY, BUT RECEIVED NO ANSWER.
--- NOTE | 2020-04-04 14:52 | NUR ---
SPOKE TO PT'S DAUGHTER, DENISSE; NAHED IS AWARE OF THE PT'S TRANSFER BACK TO [facility] TODAY.
--- NOTE | 2020-04-04 15:21 | NUR ---
PT'S DISCHARGE PAPERWORK WAS PRINTED, PT UNABLE TO SIGN. DISCHARGE INSTRUCTIONS/PACKET GIVEN TO [facility]SPORT PERSONNEL. PT'S ARMBANDS, TELE MONITOR, AND IV REMOVED, WITH CATHETER INTACT. G-TUBE FEEDING DISCONNECTED. [facility] PERSONNEL ESCORTED PT OFF OF THE UNIT VIA GURNEY. PT IN STABLE CONDITION.
== END 2020-04-04 15:25 | DRG 252 ==
LOC: MED 17:27 → EEVIPCON 17:27 → MTU 18:16
PROVIDERS: ADMIT General Practice; ATTEND General Practice
PROC: 5A1945Z Respiratory Ventilation, 24-96 Consecutive Hours (ICD-10-PCS; principal; 2020-04-01)
DX: K94.23 Gastrostomy malfunction (principal); Z99.11 Dependence on respirator [ventilator] status; G93.1 Anoxic brain damage, not elsewhere classified; E44.0 Moderate protein-calorie malnutrition; J96.10 Chronic respiratory failure, unspecified whether with hypoxia or hypercapnia; R53.2 Functional quadriplegia; I16.0 Hypertensive urgency; E83.41 Hypermagnesemia; K21.9 Gastro-esophageal reflux disease without esophagitis; R13.10 Dysphagia, unspecified; D64.9 Anemia, unspecified; E87.6 Hypokalemia; E11.9 Type 2 diabetes mellitus without complications; F03.90 Unspecified dementia, unspecified severity, without behavioral disturbance, psychotic disturbance, mood disturbance, and anxiety; E83.42 Hypomagnesemia; Z20.828 Contact with and (suspected) exposure to other viral communicable diseases; I10 Essential (primary) hypertension; Z68.28 Body mass index [BMI] 28.0-28.9, adult; Z86.73 Personal history of transient ischemic attack (TIA), and cerebral infarction without residual deficits
CPT/HCPCS: 36415; 71045; 74018; 80048; 80053; 82728; 82948; 83036; 83605; 83615; 83690; 83735; 83880; 84100; 84443; 84484; 85025; 85379; 85610; 85651; 85730; 86140; 87070; 87081; 87186; 87205; 89220; 93005; 94002; 94003; 94664; 96372; 99285; C1758; C9113; J0360; J1815; J1940; J2765; J7030; J7042; Q0092; Q9967; U0003-CS

== ENCOUNTER 2021-06-28 19:39 | Inpatient (IN) | payer MEDICAID, SELFPAY ==
[~2021-06-28] VITALS: Ht 154.9 cm; Wt 85.3 kg
[~2021-06-28 19:39] MED LIST changes: -ASCO500T45 GT; +ASCO500T95 GT; +CLIN300C2 GT; +GLIP5TAB14 GT; -GLIP5TAB4 GT; +IV Zosyn IV; +METO-625 GT; -[UNRECOGNIZED DRUG - CODE] GT; +[UNRECOGNIZED DRUG - CODE] PO
[2021-06-28 19:40] VITALS: BP 118/38
--- NOTE | 2021-06-28 19:50 | NUR ---
76 YO/F BIBA FROM [facility] W C/O OF SOB AND HYPOXIA PER [facility]. PATIENT PRESENT GCS 9, PATIENT EYES OPEN SPONTANEOUS, PATIENT IS NON-VERBAL, WITHDRAWS TO PAIN, RIGID POSTURE APPEARANCE OF DECORTICATE AND RIGID UPPER AND LOWER EXTREMITIES. PATIENT HAS TRACHEOSTOMY AND IS CONNECTED TO VENT SETTINGS AT ACVC 450, PEEP 5, 14 RR, 3L OXYGEN. PATIENT O2 SAT 99%. CHEST EXPANSION SYMMETRICAL. CRACKLES AUSCULTATED THROUGHOUT LUNG RAO. PATIENT HAS EPISODES OF GAGGING W SECRETIONS BUILD UP. S1S2 PRESENT, SKIN WARM, DRY, CAP REFIL <3SEC, MILD EDEMA TO HANDS. BOWEL SOUNDS PRESENT THROUGHOUT. NO SIGNS OF PAIN AT THIS TIME. PATIENT LAYING IN BED, HOB ELEVATED, BED LOCKED IN LOWEST POSITION, X2 SIDERAILS UP FOR PATIENT SAFETY. ERMD AWARE OF PATIENT POSTURE AND CONDITION. CONNECTED TO MONITOR W VSS, WILL CONTINUE TO MONITOR. PMH: ANEMIA, DM, HTN,CVA, CHRONIC RESP FAILURE, DYSPHAGIA, NKA
--- NOTE | 2021-06-28 19:57 | NUR ---
X-RAY AT BEDSIDE.
[2021-06-28 20:32] LABS: BASOPHILS % (AUTO) 0.5 % (0.0-2.0); EOSINOPHILS # (AUTO) 0.2 K/uL (0-0.4); EOSINOPHILS % (AUTO) 3.6 % (0.0-4.0); HEMATOCRIT 33.5 % (36-48); HEMOGLOBIN 10.8 g/dL (12.0-16.0); LYMPHOCYTES # (AUTO) 1.2 K/uL (2.5-16.5); LYMPHOCYTES % (AUTO) 18.4 % (20.5-51.1); MEAN CORPUSCULAR HEMOGLOBIN 30 pg (27-31); MEAN CORPUSCULAR HGB CONC 32 g/dL (33-37); MEAN CORPUSCULAR VOLUME 93.1 fL (80-94); MONOCYTES # (AUTO) 0.4 K/uL (0.8-1.0); MONOCYTES % (AUTO) 6.4 % (1.7-9.3); NEUTROPHILS # (AUTO) 4.8 K/uL (1.8-7.7); NEUTROPHILS % (AUTO) 71.1 % (42.2-75.2); PLATELET COUNT (AUTO) 213 K/uL (140-450); RED BLOOD CELL COUNT(AUTO) 3.59 MIL/uL (4.20-5.40); RED CELL DISTRIBUTION WIDTH 18.1 % (11.6-13.7); WHITE BLOOD COUNT (AUTO) 6.7 K/uL (4.8-10.8)
[2021-06-28 20:45] LABS: ALBUMIN 3.1 g/dL (3.4-5.0); ASPARTATE AMINOTRANSFERASE 26 U/L (15-37); CARBON DIOXIDE 31.9 mmol/L (21-32); CHLORIDE 106 mmol/L (98-107); CREATININE 0.8 mg/dL (0.6-1.3); GLUCOSE 136 mg/dL (74-106); POTASSIUM 5.9 mmol/L (3.5-5.1); SODIUM SERUM 141 mmol/L (136-145); TOTAL BILIRUBIN 0.1 mg/dL (0.0-1.0); UREA NITROGEN, BLOOD 52 mg/dL (7-18)
--- NOTE | 2021-06-28 21:30 | NUR ---
PATIENT URINE COLLECTED VIA STRAIGHT CATH, AND SENT TO LAB.
--- NOTE | 2021-06-28 22:05 | NUR ---
PATIENT LAYING IN BED W EYES CLOSED, BED LOCKED IN LOWEST POSITION W X2 SIDERAILS UP FOR PATIENT SAFETY. PATIENT CONNECTED TO MONITOR W VSS. NAD NOTED, WILL CONTINUE TO MONITOR.
[2021-06-28] MEDS ORDERED: VANCOMYCIN PER PHARMACY MC PRN (22:30)
[2021-06-28] MEDS ORDERED: VANCOMYCIN 1GM/DEXT 5% PREMIX 200 ML IV ONE (22:30)
[2021-06-28] MEDS ORDERED: CEFEPIME 1,000 MG in DEXTROSE 5% 50 ML IV ONE (22:30)
[2021-06-28 22:40] LABS: APPEARANCE,URINE SL CLOUDY (CLEAR); BILIRUBIN,URINE NEGATIVE (NEGATIVE); BLOOD, URINE 1+ (NEGATIVE); COLOR,URINE YELLOW (YELLOW); LEUKOCYTE ESTERASE ,URINE NEGATIVE (NEGATIVE); NITRITE, URINE NEGATIVE (NEGATIVE); UGLUCOSE NEGATIVE (NEGATIVE)
[2021-06-28 22:53] LABS: RBC,URINE 11-20 (MOD) /HPF (0-5); WBC,URINE 0-5 /HPF (0-5)
[2021-06-28] MEDS ORDERED: CEFEPIME 1,000 MG VIAL ONE (23:08)
--- NOTE | 2021-06-29 00:05 | NUR ---
Note renzo in ED - 06/29/21 at 0217 by MADI PATIENT LAYING IN BED W EYES CLOSED, BED LOCKED IN LOWEST POSITION W X2 SIDERAILS UP FOR PATIENT SAFETY. PATIENT CONNECTED TO MONITOR W VSS. NAD NOTED, WILL CONTINUE TO MONITOR. IV ABX MEDICATION RUNNING AT 135ML/HR.
[2021-06-29] MEDS ORDERED: ACETAMINOPHEN 325 MG TAB PO PRN (00:10)
[2021-06-29] MEDS ORDERED: ZOLPIDEM 5 MG TAB PO PRN (00:10)
[2021-06-29] MEDS ORDERED: MORPHINE SULFATE 2 MG/ML SYR IVP PRN (00:10)
[2021-06-29] MEDS ORDERED: MAG SULF 2000 MG/WATER PREMIX 50 ML IV PRN (00:10)
[2021-06-29] MEDS ORDERED: LORazepam 2 MG/ML VIAL IM/IVP PRN (00:10)
[2021-06-29] MEDS ORDERED: SODIUM PHOS / POTASSIUM PHOS 1 PKT PDR PO PRN (00:10)
[2021-06-29] MEDS ORDERED: ONDANSETRON 4 MG/2 ML VIAL IVP PRN (00:10)
[2021-06-29] MEDS ORDERED: HYDROcodone/APAP 5/325 MG 1 TAB TAB PO PRN (00:10)
[2021-06-29] MEDS ORDERED: DOCUSATE SODIUM 100 MG GELCAP PO PRN (00:10)
[2021-06-29] MEDS ORDERED: POTASSIUM CHLORIDE 10 MEQ TABER PO PRN (00:10)
[2021-06-29] MEDS ORDERED: VANCOMYCIN 1,000 MG VIAL ONE (00:22)
[2021-06-29 00:42] LABS: PROTHROMBIN TIME 10.1 secs (10.8-13.4)
[2021-06-29 00:50] LABS: CHOL/HDL RATIO 2.8 (1-4.5); FREE T4 (FREE THYROXINE) 0.73 ng/dL (0.76-1.46); PHOSPHORUS 5.1 mg/dL (2.5-4.9); THYROID STIMULATING HORMONE 7.65 uIU/mL (0.34-3.74)
[2021-06-29 01:53] VITALS: BP 143/39
--- NOTE | 2021-06-29 02:05 | NUR ---
PATIENT LAYING IN BED W EYES CLOSED, BED LOCKED IN LOWEST POSITION W X2 SIDERAILS UP FOR PATIENT SAFETY. PATIENT CONNECTED TO MONITOR W VSS. NAD NOTED, WILL CONTINUE TO MONITOR. IV ABX MEDICATION RUNNING AT 135ML/HR.
[2021-06-29] MEDS: NACL 0.9% 1,000 ML IV SCH ×4 (02:25→20:36)
--- NOTE | 2021-06-29 04:05 | NUR ---
PATIENT LAYING IN BED W EYES CLOSED, BED LOCKED IN LOWEST POSITION W X2 SIDERAILS UP FOR PATIENT SAFETY. PATIENT CONNECTED TO MONITOR W VSS. NAD NOTED, WILL CONTINUE TO MONITOR. 0.9 NS RUNNING AT 100ML/HR.
--- NOTE | 2021-06-29 05:40 | NUR ---
ADMIN DOCTOR CONTACTED IN REGARDS TO PATIENT BP OF 194/67 VIA TEXT. NO RESPONSE AT THIS TIME.
[2021-06-29] MEDS ORDERED: hydrALAZINE 20 MG/ML VIAL IVP SCH (06:20)
--- NOTE | 2021-06-29 06:20 | NUR ---
CONTACTED VIA PHONE CALL IN REGARDS TO PATIENT'S BLOOD PRESSURE OF 224/41. PER TO ADMINISTER IVP HYDRALIZINE OF 10MG ONCE.
--- NOTE | 2021-06-29 07:00 | NUR ---
PATIENT REPOSITIONED IN BED, ON BEDSIDE EXAMINING OFFICER. WILL CONTINUE TO MONITOR
[2021-06-29] MEDS ORDERED: SODIUM ZIRCONIUM CYCLOSILICATE 10 GM POWD.PACK PO SCH (08:10)
[2021-06-29 08:18] VITALS: BP 171/44
--- NOTE | 2021-06-29 08:18 | NUR ---
RECEIVED ON A TRILOGY VENTILATOR PLUGGED INTO RED OUTLET TOLERATING WELL WITHOUT ADVERSE REACTIONS NOTED TO A PORTEX DCT#7 AIRWAY SECURED WITH A TRACH TIE CUFF PRESSURE CHECKED NOTED GOOD CHEST RISE DEEP TRACHEAL SUCTION FOR LARGE SEMI THICK YELLOW WITH BLOOD TINGE SECRETIONS AIRWAY PATENT
--- NOTE | 2021-06-29 08:27 | NUR ---
PATIENT HAS BEEN SCREENED AND CATEGORIZED HIGH NUTRITION RISK. PATIENT WILL BE SEEN WITHIN 1-2 DAYS OF ADMISSION. 06/29/21-06/30/[address]
--- NOTE | 2021-06-29 09:00 | NUR ---
PATIENT REPOSITIONED IN BED, ON BEDSIDE DEMO EVENT SPECIALIST. WILL CONTINUE TO MONITOR
[2021-06-29] MEDS ORDERED: hydrALAZINE 10 MG TAB PO PRN (10:45)
--- NOTE | 2021-06-29 11:00 | NUR ---
PATIENT REPOSITIONED IN BED ON RIGHT SIDE, ON BEDSIDE MOLD CLAMPER. WILL CONTINUE TO MONITOR
[2021-06-29] MEDS ORDERED: amLODIPine 5 MG TAB GT SCH (13:00)
--- NOTE | 2021-06-29 13:00 | NUR ---
PATIENT REPOSITIONED IN BED ON LEFT SIDE, EXTRA PILLOWS PROVIDED, ON BEDSIDE DIRECTOR OF INTERCOLLEGIATE ATHLETICS. WILL CONTINUE TO MONITOR
[2021-06-29 13:33] LABS: BASOPHILS % (AUTO) 0.5 % (0.0-2.0); EOSINOPHILS # (AUTO) 0.2 K/uL (0-0.4); HEMOGLOBIN 9.3 g/dL (12.0-16.0); MONOCYTES # (AUTO) 0.6 K/uL (0.8-1.0); MONOCYTES % (AUTO) 7.9 % (1.7-9.3)
[2021-06-29 13:34] LABS: EOSINOPHILS % (AUTO) 2.9 % (0.0-4.0); LYMPHOCYTES # (AUTO) 2.3 K/uL (2.5-16.5); LYMPHOCYTES % (AUTO) 30.4 % (20.5-51.1); MEAN CORPUSCULAR HEMOGLOBIN 30 pg (27-31); MEAN CORPUSCULAR HGB CONC 32 g/dL (33-37); MEAN CORPUSCULAR VOLUME 93.9 fL (80-94); NEUTROPHILS # (AUTO) 4.4 K/uL (1.8-7.7); NEUTROPHILS % (AUTO) 58.3 % (42.2-75.2); PLATELET COUNT (AUTO) 165 K/uL (140-450); RED BLOOD CELL COUNT(AUTO) 3.09 MIL/uL (4.20-5.40); RED CELL DISTRIBUTION WIDTH 18.2 % (11.6-13.7); WHITE BLOOD COUNT (AUTO) 7.6 K/uL (4.8-10.8)
[2021-06-29 13:49] LABS: ALBUMIN 2.9 g/dL (3.4-5.0); ANION GAP 10.5 (8-16); ASPARTATE AMINOTRANSFERASE 41 U/L (15-37); CARBON DIOXIDE 26.4 mmol/L (21-32); CHLORIDE 108 mmol/L (98-107); CREATININE 0.6 mg/dL (0.6-1.3); GLUCOSE 103 mg/dL (74-106); POTASSIUM 4.9 mmol/L (3.5-5.1); SODIUM SERUM 140 mmol/L (136-145); TOTAL BILIRUBIN 0.4 mg/dL (0.0-1.0); UREA NITROGEN, BLOOD 46 mg/dL (7-18)
[2021-06-29] MEDS ORDERED: lisinopriL 5 MG TAB PO SCH (14:00)
--- NOTE | 2021-06-29 14:30 | NUR ---
DR. THOMAS BEDSIDE EVALUATING PATIENT
[2021-06-29 14:44] VITALS: BP 172/29
--- NOTE | 2021-06-29 15:00 | NUR ---
PATIENT REPOSITIONED IN BED ON RIGHT SIDE, EXTRA PILLOWS PROVIDED, ON BEDSIDE STRATEGIC PLANNER. WILL CONTINUE TO MONITOR
--- NOTE | 2021-06-29 17:00 | NUR ---
PATIENT REPOSITIONED IN BED ON LEFT SIDE, EXTRA PILLOWS PROVIDED, ON BEDSIDE FLORAL ARTIST. WILL CONTINUE TO MONITOR
[2021-06-29 18:33] VITALS: BP 187/63
--- NOTE | 2021-06-29 18:33 | NUR ---
STABLE GOOD CHEST RISE DEEP TRACHEAL SUCTION FOR MODERATE THIN YELLOW TO HAZY BLOOD TINGE SECRETIONS
--- NOTE | 2021-06-29 19:00 | NUR ---
PATIENT REPOSITIONED IN BED ON RIGHT SIDE, EXTRA PILLOWS PROVIDED, ON BEDSIDE MARINE SCIENTIST. WILL CONTINUE TO MONITOR
--- NOTE | 2021-06-29 19:15 | NUR ---
BLOOD PRESSURE 209/103, DR. THOMAS MADE AWARE. TELEPHONE ORDER GIVEN TO PUT IN HYDRALAZINE IVP ONCE.
[2021-06-29] MEDS ORDERED: hydrALAZINE 20 MG/ML VIAL IVP PRN (19:30)
[2021-06-29] MEDS ORDERED: hydrALAZINE 20 MG/ML VIAL ONE (19:32)
--- NOTE | 2021-06-29 19:42 | NUR ---
Pt report given to Jenna SHERIDAN. Transfer of care at this time.
--- NOTE | 2021-06-29 19:43 | NUR ---
RECIEVED REPORT FROM FATIMAH ZIEGLER FOR CONTINUITY OF CARE.
--- NOTE | 2021-06-29 19:46 | NUR ---
PT LYING COMFORTABLY IN BED, EYES OPEN. TRACH TO VENT NOTED AND RUNNING PROPERLY. IV TO RIGHT HAND REMAINS PATENT WITH MAINTENANCE FLUIDS RUNNING WITHOUT DIFFICULTY. REMAINS ON MONITOR. WILL CONTINUE TO MONITOR.
--- NOTE | 2021-06-29 20:15 | NUR ---
CALLED FATIMAH GUERRERO FOR ADMISSION REPORT, REQUESTED RETURN CALL IN 5 MINUTES. WILL FOLLOW-UP.
--- NOTE | 2021-06-29 20:28 | NUR ---
Patient will be admitted to care of MD MARTHA. Admited to TELE. Will go to room 129B. Belongings list completed. Report to FATIMAH GUERRERO.
--- NOTE | 2021-06-29 21:26 | NUR ---
PT TAKEN TO TELE RM 129B VIA BAUTISTA WITH MARIA ELENA RN, JOEL EMT AND SERGO MORIN. CESAR SHERIDAN AWARE OF PT ARRIVAL TO FLOOR.
--- NOTE | 2021-06-29 21:38 | NUR ---
PT WAS TRANSPORTED TO 129 AND TOLERATED TRANSPORT WELL VENT WAS PLUGGED INTO RED OUTLET W/ ALARMS ON AND AUDIBLE AMBU WAS PLACED AT BEDSIDE
[2021-06-29 21:47] VITALS: BP 144/58
--- NOTE | 2021-06-29 21:47 | NUR ---
PATIENT ADMITTED TO THE UNIT FROM ED. PATIENT AWAKE BUT NONVERBAL. CONTRACTURES NOTED TO BUE AND BLE. GTUBE NOTED IN THE LLQ, CLAMPED. PT TRACH TO VENT. O2 SAT 100% AT THIS TIME. RONCHI AND EXPIRATORY WHEEZES NOTED ON AUSCULTATION. INLINE TRACH CATH SUCTION PRODUCED THICK YELLOW BLOOD TINGED SECRETIONS. PT ON TELE MONITORING. BED LOWERED WITH CALL LIGHT WITHIN REACH. WILL CONTINUE TO MONITOR.
[2021-06-29] MEDS: PIPERACILLIN/TAZOBACTAM 3.375 GM in DEXTROSE 5% 50 ML IV SCH (22:58)
[2021-06-30] VITALS: BP 156/81
[2021-06-30] MEDS: PIPERACILLIN/TAZOBACTAM 3.375 GM in DEXTROSE 5% 50 ML IV SCH ×3 (04:54→21:41)
[2021-06-30 05:10] VITALS: BP 159/77
--- NOTE | 2021-06-30 05:30 | NUR ---
ORAL CARE DONE. PT TURNED AND REPOSITIONED FOR COMFORT
[2021-06-30] MEDS: NACL 0.9% 1,000 ML IV SCH ×2 (06:10→16:10)
--- NOTE | 2021-06-30 07:40 | NUR ---
PT REPORT GIVEN TO AM NURSE. PT ENDORSED IN STABLE CONDITION
--- NOTE | 2021-06-30 08:49 | NUR ---
RECEIVED FNS REFERRAL FOR TUBE FEEDING. PT WILL BE ASSESSED 06/30/21.
[2021-06-30 08:56] LABS: BASOPHILS % (AUTO) 0.6 % (0.0-2.0); EOSINOPHILS # (AUTO) 0.2 K/uL (0-0.4); EOSINOPHILS % (AUTO) 4.2 % (0.0-4.0); HEMATOCRIT 25.9 % (36-48); HEMOGLOBIN 8.4 g/dL (12.0-16.0); LYMPHOCYTES % (AUTO) 38.6 % (20.5-51.1); MEAN CORPUSCULAR HEMOGLOBIN 30 pg (27-31); MEAN CORPUSCULAR HGB CONC 33 g/dL (33-37); MEAN CORPUSCULAR VOLUME 92.7 fL (80-94); MONOCYTES # (AUTO) 0.5 K/uL (0.8-1.0); MONOCYTES % (AUTO) 9.6 % (1.7-9.3); NEUTROPHILS # (AUTO) 2.4 K/uL (1.8-7.7); PLATELET COUNT (AUTO) 123 K/uL (140-450); RED CELL DISTRIBUTION WIDTH 18.1 % (11.6-13.7); WHITE BLOOD COUNT (AUTO) 5.1 K/uL (4.8-10.8)
[2021-06-30 09:03] LABS: ALBUMIN 2.5 g/dL (3.4-5.0); ANION GAP 8.3 (8-16); ASPARTATE AMINOTRANSFERASE 26 U/L (15-37); CARBON DIOXIDE 28.1 mmol/L (21-32); CHLORIDE 112 mmol/L (98-107); CREATININE 0.7 mg/dL (0.6-1.3); GLUCOSE 101 mg/dL (74-106); POTASSIUM 3.4 mmol/L (3.5-5.1); SODIUM SERUM 145 mmol/L (136-145); TOTAL BILIRUBIN 0.3 mg/dL (0.0-1.0); UREA NITROGEN, BLOOD 35 mg/dL (7-18)
[2021-06-30] MEDS: amLODIPine 5 MG TAB GT SCH (09:30)
[2021-06-30 11:08] LABS: MAGNESIUM 2.3 mg/dL (1.8-2.4)
[2021-06-30] MEDS: lisinopriL 20 MG TAB PO SCH (11:35)
[2021-06-30] MEDS: FUROSEMIDE 20 MG/2 ML VIAL IVP SCH (11:35)
[2021-06-30] MEDS ORDERED: VANCOMYCIN 1,000 MG in DEXTROSE 5% 250 ML IV SCH ×2 (13:00→14:00)
--- NOTE | 2021-06-30 13:18 | NUR ---
RECEIVED TORB FROM DR. KEYS TO START TUBE FEEDINGS WITH GLUCERNA 1.2 @ 45 ML/HR. NOTIFIED FATIMAH.
[2021-06-30] MEDS ORDERED: VANCOMYCIN PER PHARMACY MC PRN (13:25)
--- NOTE | 2021-06-30 13:43 | NUR ---
06/30/21 RD INITIAL ASSESSMENT COMPLETED PLEASE REFER TO NUTRITION ASSESSMENT UNDER CARE ACTIVITY FOR ESTIMATED NUTRITIONAL NEEDS. 1. RECOMMEND GLUCERNA 1.2 @ 45 ML/HR -THIS WILL PROVIDE 1080 ML OF VOLUME, 1296 KCAL/DAY AND 64 GM OF PROTEIN/DAY, MEETING 100% OF ESTIMATED KCAL AND PROTEIN NEEDS 2. RECOMMEND FREE WATER FLUSH OF [address] TO FOLLOW-UP 2-3 DAYS, HIGH RISK MARIA ELENA LEMA RD
[2021-06-30] MEDS ORDERED: hydroCHLOROthiazide 25 MG TAB PO SCH (14:00)
[2021-06-30] MEDS: VANCOMYCIN 1,000 MG in DEXTROSE 5% 250 ML IV SCH (18:00)
[2021-06-30 20:01] VITALS: BP 144/51
[2021-06-30 20:06] VITALS: BP 148/93
[2021-06-30 21:25] VITALS: BP 131/80
[2021-07-01] VITALS (7 sets, daily range): BP systolic 99–165; BP diastolic 46–106
[2021-07-01] MEDS: VANCOMYCIN 1,000 MG in DEXTROSE 5% 250 ML IV SCH ×2 (01:44→12:00)
[2021-07-01] MEDS: NACL 0.9% 1,000 ML IV SCH ×3 (02:10→22:01)
[2021-07-01] MEDS: PIPERACILLIN/TAZOBACTAM 3.375 GM in DEXTROSE 5% 50 ML IV SCH ×3 (04:52→21:44)
[2021-07-01 06:18] LABS: BASOPHILS % (AUTO) 0.3 % (0.0-2.0); EOSINOPHILS # (AUTO) 0.3 K/uL (0-0.4); EOSINOPHILS % (AUTO) 5.6 % (0.0-4.0); HEMATOCRIT 29.1 % (36-48); HEMOGLOBIN 9.3 g/dL (12.0-16.0); LYMPHOCYTES # (AUTO) 2.8 K/uL (2.5-16.5); LYMPHOCYTES % (AUTO) 46.7 % (20.5-51.1); MEAN CORPUSCULAR HEMOGLOBIN 30 pg (27-31); MEAN CORPUSCULAR HGB CONC 32 g/dL (33-37); MEAN CORPUSCULAR VOLUME 93.5 fL (80-94); MONOCYTES # (AUTO) 0.6 K/uL (0.8-1.0); MONOCYTES % (AUTO) 9.7 % (1.7-9.3); NEUTROPHILS # (AUTO) 2.2 K/uL (1.8-7.7); NEUTROPHILS % (AUTO) 37.7 % (42.2-75.2); PLATELET COUNT (AUTO) 166 K/uL (140-450); RED BLOOD CELL COUNT(AUTO) 3.11 MIL/uL (4.20-5.40); RED CELL DISTRIBUTION WIDTH 17.9 % (11.6-13.7); WHITE BLOOD COUNT (AUTO) 5.9 K/uL (4.8-10.8)
[2021-07-01 07:07] LABS: ANION GAP 10.3 (8-16); ASPARTATE AMINOTRANSFERASE 29 U/L (15-37); CHLORIDE 108 mmol/L (98-107); CREATININE 0.8 mg/dL (0.6-1.3); GLUCOSE 88 mg/dL (74-106); MAGNESIUM 2.3 mg/dL (1.8-2.4); POTASSIUM 3.3 mmol/L (3.5-5.1); SODIUM SERUM 144 mmol/L (136-145); TOTAL BILIRUBIN 0.3 mg/dL (0.0-1.0); UREA NITROGEN, BLOOD 31 mg/dL (7-18)
--- NOTE | 2021-07-01 07:16 | NUR ---
HANDOFF WITH FATIMAH NUNES. SARA PRICE RN
--- NOTE | 2021-07-01 07:18 | NUR ---
RECEIVED REPORT FROM ASSURANCE ASSOCIATE RN FOR CONTINUITY OF CARE. PATIENT IS IN BED RESTING. NO S/S OF DISTRESS. ALL SAFETY PRECAUTIONS IN PLACE.
[2021-07-01] MEDS: lisinopriL 20 MG TAB PO SCH (10:27)
[2021-07-01] MEDS: amLODIPine 5 MG TAB GT SCH (10:27)
[2021-07-01] MEDS: FUROSEMIDE 20 MG/2 ML VIAL IVP SCH (10:28)
[2021-07-01] MEDS ORDERED: IV Vancomycin IV (10:47)
[2021-07-01] MEDS ORDERED: IV Zosyn IV (10:47)
--- NOTE | 2021-07-01 11:13 | NUR ---
HELD PATIENT'S MORNING BP MEDS. BP WAS 94/44, HR 56. IS AWARE.
[2021-07-01] MEDS ORDERED: POTASSIUM CHLORIDE 10 MEQ TABER PO SCH (12:05)
--- NOTE | 2021-07-01 13:30 | NUR ---
PATIENT IS STABLE. NO S/S OF DISTRESS. ALL SAFETY PRECAUTIONS IN PLACE.
--- NOTE | 2021-07-01 16:04 | NUR ---
LATE ENTRY DC PLANNING ASHUTOSH CONTACTED JOANTHAN YANCEY FROM [facility] TO INFORM HER PATIENT WILL BE RETURNING TO THEIR FACILITY TODAY. BC AGREED AND WILL CONTACT ASHUTOSH WITH ROOM NUMBER. [facility]UT[facility]H FAXED PATIENT'S CLINICALS AT [phone] AND WILL FOLLOW UP NEEDED Addendum: 07/01/21 at 1627 by Radha Morel CM BC FROM [facility] TEXT ASHUTOSH AND JONATHAN STATING THAT PATIENT WILL NOT BE ABLE TO RETURN TO [facility] TODAY DUE TO SOME OF THEIR FACILITY DC'S DID NOT TOOK EFFECT TODAY THEREFORE' THEY NO LONGER CAN COORDINATE THE ROOM FOR PATIENT. JONATHAN AYNCEY STATED THEY CAN NOT RECEIVE PATIENT UNTIL TOMORROW. ASHUTOSH AND JONATHAN WILL FOLLOW UP NEEDED.
--- NOTE | 2021-07-01 19:30 | NUR ---
ENDORSED PATIENT TO SLICER MACHINE OPERATOR RN FOR CONTINUITY OF CARE. PATIENT IS STABLE.
[2021-07-02] VITALS (7 sets, daily range): BP systolic 107–134; BP diastolic 51–94
[2021-07-02] MEDS: PIPERACILLIN/TAZOBACTAM 3.375 GM in DEXTROSE 5% 50 ML IV SCH ×3 (04:54→21:06)
[2021-07-02] MEDS: VANCOMYCIN 1,000 MG in DEXTROSE 5% 250 ML IV SCH (06:00)
[2021-07-02 07:03] LABS: BASOPHILS % (AUTO) 0.5 % (0.0-2.0); EOSINOPHILS # (AUTO) 0.5 K/uL (0-0.4); EOSINOPHILS % (AUTO) 7.1 % (0.0-4.0); HEMATOCRIT 28.3 % (36-48); HEMOGLOBIN 9.2 g/dL (12.0-16.0); LYMPHOCYTES # (AUTO) 3.8 K/uL (2.5-16.5); LYMPHOCYTES % (AUTO) 52.6 % (20.5-51.1); MEAN CORPUSCULAR HEMOGLOBIN 30 pg (27-31); MEAN CORPUSCULAR HGB CONC 32 g/dL (33-37); MEAN CORPUSCULAR VOLUME 92.5 fL (80-94); MONOCYTES # (AUTO) 0.6 K/uL (0.8-1.0); MONOCYTES % (AUTO) 8.5 % (1.7-9.3); NEUTROPHILS # (AUTO) 2.3 K/uL (1.8-7.7); NEUTROPHILS % (AUTO) 31.3 % (42.2-75.2); PLATELET COUNT (AUTO) 167 K/uL (140-450); RED BLOOD CELL COUNT(AUTO) 3.06 MIL/uL (4.20-5.40); RED CELL DISTRIBUTION WIDTH 18.4 % (11.6-13.7); WHITE BLOOD COUNT (AUTO) 7.2 K/uL (4.8-10.8)
[2021-07-02 07:12] LABS: ASPARTATE AMINOTRANSFERASE 23 U/L (15-37); CARBON DIOXIDE 31.7 mmol/L (21-32); CHLORIDE 108 mmol/L (98-107); CREATININE 0.9 mg/dL (0.6-1.3); GLUCOSE 97 mg/dL (74-106); MAGNESIUM 2.2 mg/dL (1.8-2.4); POTASSIUM 3.7 mmol/L (3.5-5.1); SODIUM SERUM 143 mmol/L (136-145); TOTAL BILIRUBIN 0.2 mg/dL (0.0-1.0); UREA NITROGEN, BLOOD 29 mg/dL (7-18)
--- NOTE | 2021-07-02 07:23 | NUR ---
HANDOFF WITH FATIMAH EDDY. SARA PRICE RN
--- NOTE | 2021-07-02 07:24 | NUR ---
Received report from pm nurse Heladio. Pt asleep, respirations even & nonlabored with trach to vent. No signs of distress. Right hand 22G IV intact & asymptomatic.
[2021-07-02] MEDS: NACL 0.9% 1,000 ML IV SCH ×2 (08:10→18:14)
[2021-07-02] MEDS: lisinopriL 20 MG TAB PO SCH (08:57)
[2021-07-02] MEDS: FUROSEMIDE 20 MG/2 ML VIAL IVP SCH (08:57)
[2021-07-02] MEDS: amLODIPine 5 MG TAB GT SCH (08:57)
--- NOTE | 2021-07-02 11:00 | NUR ---
Pt resting in bed, eyes open, does not hold eye contact, unable to make needs known or follow commands. Respirations even & nonlabored with trach to vent. GT intact with ongoing Glucerna 1.2 @ 45ml/hr. HOB elevated @ 35. Right hand IV 22G intact and asymptomatic.
--- NOTE | 2021-07-02 11:47 | NUR ---
DC PLANNING ASHUTOSH SPOKE TO BC TO DISCUSS ABOUT PATIENT'S DC TODAY RETURNING BACK TO THEIR FACILITY ASHUTOSH REQUESTED A ROOM NUMBER FOR PATIENT. BC STATED THAT THEY ARE WORKING ON SOME ARRANGEMENTS WITH ROOMS AND WILL CALL THIS GEOPHYSICAL DRAFTER BACK WITH A ROOM NUMBER. Addendum: 07/02/21 at 1533 by Radha Morel CM DC DISCHARGE BC FROM [facility] CONTACTED [facility] AND PROVIDED PATIENT RECEIVING LUDMILA MCCLENDON WITH ROOM # 2A. [facility] THANK HER FOR INFORMATION AND WILL CONTACT HER BACK WITH PATIENT TRANSPORT TIME. Addendum: 07/02/21 at 3787 by Radha Morel [facility] CONTACTED [facility] AT [phone] AFTER FAXING AT WITH COMPLETED CONFIRMATION AT ABOUT 15:40. [facility] SEND [facility] REQUIRED TO SET UP TRANSPORT FOR PATIENT TO GO BACK TO [facility] FACILITY TODAY. SW SPOKE TO ARTURO WHO STATED THAT NEEDED A VOUCHER FOR PATIENT SINCE SHE DID NOT QUALIFY FOR TRANSPORT BENEFITS. AFTER REVIEWING PATIENT INFORMATION WITH [facility] AND JONATHAN MORRIS WAS ABLE TO FIND PATIENT'S ELIGIBILITY AND SET UP PATIENTS TRANSPORT BACK TO [facility] AT 19:00 TONIGHT. [facility] CONTACTED BC FROM [facility] AT ABOUT 16:00 TO INFORM HER THAT TRANSPORT FOR PATIENT BACK TO [facility] SNF WILL BE WITH [facility] AT ABOUT 19:00. BC AGREED AND THANK [facility] FOR INF. SW CONTACT TELE UNIT AND SPOKE TO FATIMAH VALVERDE TO INFORM HER OF PATIENT BEEN [employer] BROKER BY [facility]ORT AT 19:00 TO TAKE BACK TO [facility].
--- NOTE | 2021-07-02 14:28 | NUR ---
07/02/21 RD FOLLOW UP COMPLETED PLEASE REFER TO NUTRITION ASSESSMENT UNDER CARE ACTIVITY FOR ESTIMATED NUTRITIONAL NEEDS. 1.CONTINUE GLUCERNA 1.2 @45 ML/HR - THIS WILL PROVIDE 1080ML OF VOLUME, 1296 KCAL/ DAY AND 64 GM OF PROTEIN/DAY, MEETING 100% OF ESTIMATED KCAL AND PROTEIN NEEDS. 2. CONTINUE FREE WATER FLUSH OF [address] TO FOLLOW-UP 2-3 DAYS, HIGH RISK MARIA ELENA LEMA RD
[2021-07-03] VITALS: BP 116/55
[2021-07-03] MEDS ORDERED: VANCOMYCIN 1,000 MG in DEXTROSE 5% 250 ML IV SCH ×2
[2021-07-03 04:00] VITALS: BP 140/65
[2021-07-03] MEDS: NACL 0.9% 1,000 ML IV SCH ×2 (04:10→14:10)
[2021-07-03] MEDS: PIPERACILLIN/TAZOBACTAM 3.375 GM in DEXTROSE 5% 50 ML IV SCH ×2 (05:26→14:30)
[2021-07-03 06:23] LABS: BASOPHILS % (AUTO) 0.6 % (0.0-2.0); EOSINOPHILS # (AUTO) 0.4 K/uL (0-0.4); EOSINOPHILS % (AUTO) 6.9 % (0.0-4.0); HEMOGLOBIN 8.8 g/dL (12.0-16.0); LYMPHOCYTES # (AUTO) 3.6 K/uL (2.5-16.5); LYMPHOCYTES % (AUTO) 57.4 % (20.5-51.1); MEAN CORPUSCULAR HEMOGLOBIN 30 pg (27-31); MEAN CORPUSCULAR HGB CONC 33 g/dL (33-37); MEAN CORPUSCULAR VOLUME 92.6 fL (80-94); MONOCYTES # (AUTO) 0.5 K/uL (0.8-1.0); MONOCYTES % (AUTO) 8.3 % (1.7-9.3); NEUTROPHILS # (AUTO) 1.7 K/uL (1.8-7.7); NEUTROPHILS % (AUTO) 26.8 % (42.2-75.2); PLATELET COUNT (AUTO) 121 K/uL (140-450); RED BLOOD CELL COUNT(AUTO) 2.91 MIL/uL (4.20-5.40); RED CELL DISTRIBUTION WIDTH 17.5 % (11.6-13.7); WHITE BLOOD COUNT (AUTO) 6.2 K/uL (4.8-10.8)
[2021-07-03 07:14] LABS: ALBUMIN 2.7 g/dL (3.4-5.0); ANION GAP 11.4 (8-16); ASPARTATE AMINOTRANSFERASE 33 U/L (15-37); CARBON DIOXIDE 29.7 mmol/L (21-32); CHLORIDE 108 mmol/L (98-107); CREATININE 0.8 mg/dL (0.6-1.3); GLUCOSE 90 mg/dL (74-106); MAGNESIUM 2.3 mg/dL (1.8-2.4); POTASSIUM 4.1 mmol/L (3.5-5.1); SODIUM SERUM 145 mmol/L (136-145); TOTAL BILIRUBIN 0.3 mg/dL (0.0-1.0); UREA NITROGEN, BLOOD 29 mg/dL (7-18)
--- NOTE | 2021-07-03 07:27 | NUR ---
HANDOFF WITH FATIMAH GUZMAN. SARA PRICE RN
--- NOTE | 2021-07-03 07:30 | NUR ---
RECEIVED REPORT FROM KINESIOTHERAPIST NURSE FOR CONTINUITY OF CARE. PT IS AOX1, APHASIC. RESPIRATIONS EVEN AND UNLABORED. TRACH TO VENT O2 SATURATION AT 100%. NO DISTRESS NOTED. SKIN IS WARM, DRY, AND INTACT. IV SITE ON RH 22G INFUSING NS AT 100 ML/HR. INTACT AND PATENT. G-TUBE IN PLACE. ON GLUCERNA RUNNING AT 45 ML/HR WITH H20 FLUSH AT 100 ML/Q4H. SAFETY PRECAUTIONS IN PLACE. BED IN LOW POSITION. WILL CONTINUE TO MONITOR.
[2021-07-03 08:00] VITALS: BP 144/63
[2021-07-03] MEDS: FUROSEMIDE 20 MG/2 ML VIAL IVP SCH (10:00)
--- NOTE | 2021-07-03 10:14 | NUR ---
ALL SCHEDULED MEDS GIVEN. NO RESIDUAL WAS NOTED. PT STABLE. NO DISTRESS NOTED. WILL CONTINUE TO MONITOR.
[2021-07-03] MEDS ORDERED: amLODIPine 5 MG TAB GT SCH (10:15)
--- NOTE | 2021-07-03 11:45 | NUR ---
DC PLANNING: PATIENT IS GOING BACK TO [facility] [place] ROOM 2C # TO GIVE REPORT [phone], ARRANGE TRANSPORT WITH [facility] ADMINISTRATOR TIME 12:30 PM NOTIFIED THOMAS SHERIDAN. JONATHAN TO FOLLOW
--- NOTE | 2021-07-03 11:46 | NUR ---
NOTIFIED BY RHIANNON THAT PATIENT WILL BE DISCHARGED TODAY AND TRANSFERRED BACK TO [facility] IN ROOM 2C
[2021-07-03 12:00] VITALS: BP 128/55
[2021-07-03] MEDS ORDERED: VANCOMYCIN 750 MG in DEXTROSE 5% 250 ML IV SCH (12:00)
--- NOTE | 2021-07-03 13:45 | NUR ---
ENDORSED PATIENT REPORT TO FATIMHA NATION AT [facility]. INFORMED HER THAT [facility] WILL BE TRANSFERRING PATIENT TO ROOM 2C IN [facility]. PICKUP TIME WILL BE AT 1400
[2021-07-03 14:10] VITALS: BP_SYST 128; BP_SYST 144; BP_DIAS 55; BP_DIAS 63
[2021-07-03 14:22] VITALS: BP 128/55
--- NOTE | 2021-07-03 14:36 | NUR ---
PATIENT DISCHARGED OFF THE UNIT. PATIENT WILL BE GOING TO [facility] IN ROOM 2C. DISCHARGE WITH IV ON RIGHT HAND 22G. INTACT AND PATENT. PATIENT IS STABLE PRIOR TO DISCHARGE.
[2021-07-04] MEDS ORDERED: FUROSEMIDE 20 MG TAB PO SCH (09:00)
== END 2021-07-03 14:37 | DRG 720 ==
LOC: MED 19:39 → MTU 06-29 00:20 → UNDOADMIN 06-29 00:20 → MTU 06-29 06:03 → MMU 06-29 06:26 → MTU 06-29 06:26
PROVIDERS: ADMIT Family Medicine; ATTEND Family Medicine
PROC: 5A1955Z Respiratory Ventilation, Greater than 96 Consecutive Hours (ICD-10-PCS; principal; 2021-06-29)
DX: A41.9 Sepsis, unspecified organism (principal); J96.21 Acute and chronic respiratory failure with hypoxia; J69.0 Pneumonitis due to inhalation of food and vomit; J95.851 Ventilator associated pneumonia; G82.50 Quadriplegia, unspecified; E46 Unspecified protein-calorie malnutrition; G93.1 Anoxic brain damage, not elsewhere classified; D63.8 Anemia in other chronic diseases classified elsewhere; E83.39 Other disorders of phosphorus metabolism; Z93.0 Tracheostomy status; Z99.11 Dependence on respirator [ventilator] status; E11.9 Type 2 diabetes mellitus without complications; E78.5 Hyperlipidemia, unspecified; F03.90 Unspecified dementia, unspecified severity, without behavioral disturbance, psychotic disturbance, mood disturbance, and anxiety; E87.6 Hypokalemia; I16.1 Hypertensive emergency; R31.29 Other microscopic hematuria; E03.9 Hypothyroidism, unspecified; E86.0 Dehydration; I27.20 Pulmonary hypertension, unspecified; N39.0 Urinary tract infection, site not specified; Z20.822 Contact with and (suspected) exposure to COVID-19; I08.1 Rheumatic disorders of both mitral and tricuspid valves; I10 Essential (primary) hypertension; E87.5 Hyperkalemia; K21.9 Gastro-esophageal reflux disease without esophagitis; Z87.01 Personal history of pneumonia (recurrent); Z79.899 Other long term (current) drug therapy; Z87.820 Personal history of traumatic brain injury; Z93.1 Gastrostomy status; Z68.35 Body mass index [BMI] 35.0-35.9, adult
CPT/HCPCS: 36415; 71045; 80053; 80202; 81001; 82150; 82948; 83036; 83605; 83690; 83735; 83880; 84100; 84439; 84443; 84484; 85025; 85610; 85730; 87040; 87070; 87081; 87086; 87205; 93005; 94002; 94003; 96365; 96367; 99285; J0360; J0692; J1940; J2543; J3370; J7060; Q0092

== ENCOUNTER 2021-07-13 15:40 | Inpatient (IN) | payer MEDICAID, SELFPAY ==
[~2021-07-13] VITALS: Ht 172.7 cm; Wt 94.3 kg
[~2021-07-13 15:40] MED LIST changes: +IV Vancomycin IV
--- NOTE | 2021-07-13 15:40 | NUR ---
(0522) Donnie AUGUST RCP AND Sylwia MEDINA RCP CALLED TO BEDSIDE
--- NOTE | 2021-07-13 15:40 | NUR ---
Patient assisted from SPENCER tejada onto bed. RT at bedside
[2021-07-13 15:45] VITALS: BP 107/44
--- NOTE | 2021-07-13 15:50 | NUR ---
PLACED ON A GE CARESCAPE R860 VENTILATOR PLUGGED INOT RED OUTLET TOLERATING WELL WITHOUT COMPICATIONS NOTED TO A PORTEX DCT #7 AIRWAY SECURED WITH A PORTEX TRACH TIE GOOD CHEST RISE DEEP TRACHEAL SUCTION FOR MODERATE SEMI THICK HAZY TO YELLOW SECRETIONS AIRWAY PATENT
--- NOTE | 2021-07-13 15:50 | NUR ---
VENT settinsg: On Pressure Control inspiratory 30, R 16, PEEP 5, 40% FiO2
[2021-07-13] MEDS ORDERED: NACL 0.9% 1,000 ML IV SCH (15:55)
[2021-07-13] MEDS ORDERED: cefTRIAXone 1,000 MG in DEXT 5% MINI-BAG PLUS 50 ML IV ONE (15:55)
--- NOTE | 2021-07-13 15:55 | NUR ---
76 y/o F BIBA from [facility] [place] for ER evaluation of abnormal labs: Potassium 6.3, Hgb 5.9, Hct 18.3 and low heart rate of 62. Patient presents [id number], arrived SpO2 98% on BVM. RT at bedside. G-tube in place, patient diapered and non-verbal. A&Ox0, non-verbal, eyes closed, Bilateral arm contracted. Unsigned POLST. Patient with multiple dressings to bilateral hands. PMH: HTN, DM, chronic respiratory failure, hypercapnia NKA
[2021-07-13] MEDS ORDERED: ONDANSETRON 4 MG/2 ML VIAL IVP ONE (16:00)
[2021-07-13] MEDS ORDERED: cefTRIAXone 1,000 MG VIAL ONE (16:25)
--- NOTE | 2021-07-13 16:30 | NUR ---
Oral trauma noted with bleeding from tongue laceration. Oral suction performed. 5mL bright red blood removed.
[2021-07-13 16:38] LABS: BASOPHILS # (AUTO) 0.1 K/uL (0.00-0.22); BASOPHILS % (AUTO) 0.6 % (0.0-2.0); EOSINOPHILS # (AUTO) 0.4 K/uL (0-0.4); EOSINOPHILS % (AUTO) 4.1 % (0.0-4.0); LYMPHOCYTES # (AUTO) 3.2 K/uL (2.5-16.5); LYMPHOCYTES % (AUTO) 34.7 % (20.5-51.1); MEAN CORPUSCULAR HEMOGLOBIN 31 pg (27-31); MEAN CORPUSCULAR HGB CONC 32 g/dL (33-37); MONOCYTES # (AUTO) 0.7 K/uL (0.8-1.0); MONOCYTES % (AUTO) 7.2 % (1.7-9.3); NEUTROPHILS # (AUTO) 4.9 K/uL (1.8-7.7); NEUTROPHILS % (AUTO) 53.4 % (42.2-75.2); PLATELET COUNT (AUTO) 148 K/uL (140-450); RED BLOOD CELL COUNT(AUTO) 1.75 MIL/uL (4.20-5.40); WHITE BLOOD COUNT (AUTO) 9.1 K/uL (4.8-10.8)
[2021-07-13 16:54] LABS: ALBUMIN 2.7 g/dL (3.4-5.0); ANION GAP 6.6 (8-16); ASPARTATE AMINOTRANSFERASE 20 U/L (15-37); CARBON DIOXIDE 34.6 mmol/L (21-32); CHLORIDE 108 mmol/L (98-107); GLUCOSE 93 mg/dL (74-106); SODIUM SERUM 143 mmol/L (136-145); TOTAL BILIRUBIN 0.2 mg/dL (0.0-1.0)
[2021-07-13 16:55] LABS: HEMOGLOBIN 5.4 g/dL (12.0-16.0)
[2021-07-13 16:56] LABS: HEMATOCRIT 16.7 % (36-48)
[2021-07-13 16:58] LABS: POTASSIUM 6.2 mmol/L (3.5-5.1); PROTHROMBIN TIME 10.3 secs (10.8-13.4); UREA NITROGEN, BLOOD 67 mg/dL (7-18)
[2021-07-13] MEDS ORDERED: CALCIUM CHLORIDE 10% 1,000 MG in NACL 0.9% 100 ML IV ONE (17:20)
[2021-07-13] MEDS ORDERED: SODIUM POLYSTYRENE 15 GM/60 ML UDBTL GT ONE (17:20)
--- NOTE | 2021-07-13 17:21 | NUR ---
Patient resting in position of comfort in high-fowlers. night monitor and ventilator remains in place. SpO2 100%. Bed locked in lowest position, side rails x 2.
--- NOTE | 2021-07-13 18:00 | NUR ---
# 16 FR Melissa catheter with 10 ml utilizing sterile technique. Immediate return of 200 ml yellowurine noted. Bedside drainage bag placed below level of bladder. Urine sample collected and sent to lab. Pt tolerated procedure well.
[2021-07-13] MEDS ORDERED: SODIUM ZIRCONIUM CYCLOSILICATE 10 GM POWD.PACK PO SCH (19:00)
[2021-07-13] MEDS ORDERED: guaiFENesin DM 200/20 MG-10 ML 10 ML UDC PO PRN (19:00)
[2021-07-13] MEDS: DEXT 5% /NACL 0.9% 1,000 ML IV SCH (19:00)
[2021-07-13] MEDS ORDERED: ONDANSETRON 4 MG/2 ML VIAL IM/IVP PRN (19:00)
[2021-07-13] MEDS ORDERED: DOCUSATE SODIUM 100 MG GELCAP PO PRN (19:00)
[2021-07-13 19:12] LABS: APPEARANCE,URINE CLEAR (CLEAR); BILIRUBIN,URINE NEGATIVE (NEGATIVE); BLOOD, URINE NEGATIVE (NEGATIVE); COLOR,URINE YELLOW (YELLOW); LEUKOCYTE ESTERASE ,URINE NEGATIVE (NEGATIVE); NITRITE, URINE NEGATIVE (NEGATIVE); PH,URINE 7.5 (5.0-9.0); UGLUCOSE NEGATIVE (NEGATIVE)
--- NOTE | 2021-07-13 19:16 | NUR ---
Neto wesley handed to CPT Stephania at ER bedside
--- NOTE | 2021-07-13 19:19 | NUR ---
Report and transfer of care endorsed to FATIMAH Vincent.
[2021-07-13 19:30] LABS: CHOL/HDL RATIO 2.4 (1-4.5); FREE T4 (FREE THYROXINE) 0.75 ng/dL (0.76-1.46); PHOSPHORUS 2.2 mg/dL (2.5-4.9); THYROID STIMULATING HORMONE 7.38 uIU/mL (0.34-3.74)
--- NOTE | 2021-07-13 20:02 | NUR ---
pt is a&o x0, vss, pt is in stable condition. all needs met at this time. bed locked in lowest position, side rails x2.
[2021-07-13] MEDS: SIMVASTATIN 10 MG TAB GT SCH (20:33)
--- NOTE | 2021-07-13 20:59 | NUR ---
CALLED AND LEFT A MSG TO PT'S DAUGHTER NAHED REGARDING BLOOD TRANSFUSION, CALLED 2XS NO ANSWER, LEFT MSG.
--- NOTE | 2021-07-13 21:33 | NUR ---
REPORT GIVEN TO FATIMAH BA EXT [phone]
--- NOTE | 2021-07-13 22:15 | NUR ---
Patient will be admitted to care of . Admited to TELE. Will go to [id number]. Belongings list completed. Report to FATIMAH BA.
--- NOTE | 2021-07-13 22:15 | NUR ---
ASSISTED INFRASTRUCTURE DIRECTOR/EMT IN PT TRANSPORT FROM ER #9 TO BED #122B. VENTILATOR IS PLUGGED INTO A RED OUTLET, FUTIONING PROPERLY, BVM AT BEDSIDE. PT IS IN NO DISTRESS, WILL CONTINUE TO MONITOR
[2021-07-14] VITALS (7 sets, daily range): BP systolic 109–152; BP diastolic 47–85
--- NOTE | 2021-07-14 00:43 | NUR ---
THE PATEINT WAS ADMITTED FORM SNF FOR ABNORMAL LABS, HG 5.8 AND K 6.3. ADMITTING DX ARE ANAEMIA AND HYPERKALEMIA . THE PATEINT STARTED TO RECEIVE ONE BLOOD TRANSFUSION AT ER AT 21:20, NO ADVERSE REACTIONS ARE NOTICED. VITALS ARE STABEL , SHE TRACVH TO VENT FO2 40%, RR 28,HR 78, BP 142/78. COMFORT AND SAFETY MEASURES ARE PROVIDED
[2021-07-14 07:07] LABS: T4 (THYROXINE) 5.5 ug/dL (4.5-12.0)
--- NOTE | 2021-07-14 07:25 | NUR ---
RECEIVED BEDSIDE REPORT FROM NIGHTSHIFT NURSE. PT RESTING IN BED. FLACC 0. RESPIRATIONS EVEN AND UNLABORED WITH NO SOB OR RESPIRATORY DISTRESS. SKIN WARM AND DRY TO TOUCH. SAFETY MEASURES IN PLACE. WILL CONTINUE TO MONITOR
[2021-07-14] MEDS: DEXT 5% /NACL 0.9% 1,000 ML IV SCH ×3 (07:47→16:59)
--- NOTE | 2021-07-14 08:33 | NUR ---
RECEIVED ON A [employer] R86O VENTILATOR PLUGGED INTO RED OUTLET TOLERATING WELL WITHOUT ADVERSE REACTIONS NOTED TO A PORTEX DCT#7 AIRWAY CUFF PRESSURE CHECKED NOTED SpVt LESS THAN 320ml IBW 6cc = 380ml INCREASED Pinsp TO 21rrU5C INVERSE I/E RATIO 3:1.2 DECREASED I TIME TO 0.65 TO OBTAIN I/E RATIO OF 1:1-2 GOOD CHEST RISE DEEP TACHEAL SUCTION FOR MODERATE THIN HAZY TO YELLOW SECRETIONS AIRWAY PATENT
--- NOTE | 2021-07-14 09:05 | NUR ---
PATIENT HAS BEEN SCREENED AND CATEGORIZED HIGH NUTRITION RISK. PATIENT WILL BE SEEN WITHIN 1-2 DAYS OF ADMISSION. 07/14/21-07/15/21 FNS CONSULT RECEIVED FOR TUBE FEEDING MARIA ELENA LEMA RD
--- NOTE | 2021-07-14 09:30 | NUR ---
ADMINISTERED SCHED MED PRESCRIBED PER MD ORDER. PT TOLERATED WELL. SAFETY MEASURES IN PLACE. WILL CONTINUE TO MONITOR
[2021-07-14 09:36] LABS: BASOPHILS # (AUTO) 0.1 K/uL (0.00-0.22); BASOPHILS % (AUTO) 0.6 % (0.0-2.0); EOSINOPHILS # (AUTO) 0.4 K/uL (0-0.4); EOSINOPHILS % (AUTO) 3.9 % (0.0-4.0); HEMATOCRIT 22.6 % (36-48); HEMOGLOBIN 7.6 g/dL (12.0-16.0); LYMPHOCYTES # (AUTO) 3.8 K/uL (2.5-16.5); MEAN CORPUSCULAR HEMOGLOBIN 31 pg (27-31); MEAN CORPUSCULAR HGB CONC 34 g/dL (33-37); MEAN CORPUSCULAR VOLUME 91.3 fL (80-94); MONOCYTES # (AUTO) 0.8 K/uL (0.8-1.0); MONOCYTES % (AUTO) 8.7 % (1.7-9.3); NEUTROPHILS # (AUTO) 4.4 K/uL (1.8-7.7); NEUTROPHILS % (AUTO) 46.8 % (42.2-75.2); PLATELET COUNT (AUTO) 130 K/uL (140-450); RED BLOOD CELL COUNT(AUTO) 2.47 MIL/uL (4.20-5.40); RED CELL DISTRIBUTION WIDTH 17.6 % (11.6-13.7); WHITE BLOOD COUNT (AUTO) 9.4 K/uL (4.8-10.8)
[2021-07-14 09:43] LABS: ANION GAP 8.8 (8-16); CARBON DIOXIDE 31.2 mmol/L (21-32); CHLORIDE 111 mmol/L (98-107); CREATININE 0.8 mg/dL (0.6-1.3); GLUCOSE 94 mg/dL (74-106); SODIUM SERUM 147 mmol/L (136-145); UREA NITROGEN, BLOOD 48 mg/dL (7-18)
[2021-07-14] MEDS: glipiZIDE 5 MG TAB GT SCH (09:48)
[2021-07-14] MEDS: ASCORBIC ACID 500 MG TAB GT SCH (09:49)
[2021-07-14] MEDS: amLODIPine 5 MG TAB GT SCH (09:49)
[2021-07-14] MEDS: PANTOPRAZOLE 40 MG TABEC PO SCH (09:50)
--- NOTE | 2021-07-14 11:05 | NUR ---
PT HAS BLOODY CLOTS IN THE BACK OF THROAT THAT GOT SUCTIONED OUT. PT HAS 300ML OF BLOODY SECRETIONS OUT. NO SIGNS OF DISTRESS. RT AND MD MADE AWARE. NO NEW ORDERS.
--- NOTE | 2021-07-14 11:50 | NUR ---
GOOD CHEST RISE PATIENT PRESENTING WITH DIFFUSED EXP WHEEZE AND RALES BILATERAL FIRE PROTECTION ENGINEER TO CONTACT DR. TRINITY KEYS TO REVIEW PULMONARY STATUS
--- NOTE | 2021-07-14 11:51 | NUR ---
PATIENT BITING OF TONGUE PRIOR TO ADMISSION REQUESTED BY DR. TRINITY KEYS PLACED A CONMED BITE BLOCK IN ORAL REGION MARU/RN NOTIFIED
--- NOTE | 2021-07-14 11:57 | NUR ---
REVIEWED PULMONARY STATUS WITH DR. TRINITY JAMES: OKAY FOR RT TO ORDER HHN THERAPY AND RESPIRATOR DRUG; DUONEB Q6WA & Q4 PRN FOR SOB/WHEEZE; OXYGEN SATURATION GREATER THAN 90%
--- NOTE | 2021-07-14 13:05 | NUR ---
WOUND CARE PROVIDED TO PATIENT. PT TOLERATED FAIRLY. PT PENDING WOUND EVAL
--- NOTE | 2021-07-14 13:40 | NUR ---
RECEIVED TORB FROM DR. KEYS TO START TUBE FEEDING. RN WAS NOTIFIED.
--- NOTE | 2021-07-14 14:06 | NUR ---
PROVIDED ORAL CARE TO PATIENT. PT TOLERATED FAIRLY
[2021-07-14] MEDS: ALBUTEROL SULFATE/IPRATROPIU 3 ML SOL IH SCH ×2 (14:15→20:26)
--- NOTE | 2021-07-14 14:15 | NUR ---
GOOD CHEST RISE DEEP TRACHEAL SUCTION FOR MODERATE THIN PALE YELLOW SECRETIONS AIRWAY PATENT
--- NOTE | 2021-07-14 14:47 | NUR ---
07/14/21 RD INITIAL ASSESSMENT COMPLETED PLEASE REFER TO NUTRITION ASSESSMENT UNDER CARE ACTIVITY FOR ESTIMATED NUTRITIONAL NEEDS. 1.CONTINUE VITAL AF 1.2 @ 40 ML/HR - THIS WILL PROVIDE 1,152 KCAL AND 68 G OF PROTEIN WHICH WILL MEET ESTIMATED NUTRITIONAL NEEDS. 2. CONTINUE FREE WATER FLUSH 135ML/HR Q6H. 3. RD TO FOLLOW-UP 2-3 DAYS, HIGH RISK MARIA ELENA LEMA RD
--- NOTE | 2021-07-14 18:00 | NUR ---
PROVIDED PT WITH VITAL AF NUTRITION ORDERED PER MD. SAFETY MEASURES IN PLACE. WILL CONTINUE TO MONITOR
--- NOTE | 2021-07-14 19:15 | NUR ---
ENDORSED AT BEDSIDE TO NIGHTSHIFT NURSE FOR CONTINUITY OF CARE
[2021-07-14] MEDS: HYDROcodone/APAP 7.5/325 MG 1 TAB PO PRN (20:36)
[2021-07-14] MEDS: ACETAMINOPHEN 325 MG TAB PO PRN (20:36)
[2021-07-14 21:33] LABS: BASOPHILS % (AUTO) 0.3 % (0.0-2.0); EOSINOPHILS # (AUTO) 0.3 K/uL (0-0.4); EOSINOPHILS % (AUTO) 2.4 % (0.0-4.0); HEMATOCRIT 22.4 % (36-48); HEMOGLOBIN 7.3 g/dL (12.0-16.0); LYMPHOCYTES # (AUTO) 2.2 K/uL (2.5-16.5); LYMPHOCYTES % (AUTO) 18.5 % (20.5-51.1); MEAN CORPUSCULAR HEMOGLOBIN 30 pg (27-31); MEAN CORPUSCULAR HGB CONC 33 g/dL (33-37); MONOCYTES # (AUTO) 0.7 K/uL (0.8-1.0); MONOCYTES % (AUTO) 5.4 % (1.7-9.3); NEUTROPHILS # (AUTO) 8.8 K/uL (1.8-7.7); NEUTROPHILS % (AUTO) 73.4 % (42.2-75.2); PLATELET COUNT (AUTO) 138 K/uL (140-450); RED BLOOD CELL COUNT(AUTO) 2.44 MIL/uL (4.20-5.40); RED CELL DISTRIBUTION WIDTH 18.1 % (11.6-13.7); WHITE BLOOD COUNT (AUTO) 12.1 K/uL (4.8-10.8)
[2021-07-14] MEDS: SIMVASTATIN 10 MG TAB GT SCH (21:36)
[2021-07-14] MEDS ORDERED: PIPERACILLIN/TAZOBACTAM 2.25 GM VIAL IV ONE (21:39)
[2021-07-14] MEDS: DEXT 5% / NACL 0.45% 1,000 ML IV SCH (21:44)
[2021-07-14] MEDS: PIPERACILLIN/TAZOBACTAM 2.25 GM in DEXTROSE 5% 50 ML IV SCH (21:44)
[2021-07-14 21:46] LABS: CARBON DIOXIDE 30.5 mmol/L (21-32); CHLORIDE 113 mmol/L (98-107); GLUCOSE 162 mg/dL (74-106); POTASSIUM 3.5 mmol/L (3.5-5.1); SODIUM SERUM 149 mmol/L (136-145); UREA NITROGEN, BLOOD 46 mg/dL (7-18)
--- NOTE | 2021-07-14 23:50 | NUR ---
the patient had sinus tachy 125 and temp 102, tylenol was given and cooling measures were applied , the pateint went back to SR 69 and breathing is even and unlabored , antbx was administered . she feels comfortable .. comfort and safety measures are provided.
[2021-07-15 04:23] VITALS: BP 135/74
[2021-07-15] MEDS ORDERED: PIPERACILLIN/TAZOBACTAM 2.25 GM VIAL IV ONE (04:40)
[2021-07-15] MEDS: PIPERACILLIN/TAZOBACTAM 2.25 GM in DEXTROSE 5% 50 ML IV SCH ×3 (05:19→21:00)
[2021-07-15] MEDS: ACETAMINOPHEN 325 MG TAB PO PRN (05:41)
[2021-07-15] MEDS: HYDROcodone/APAP 7.5/325 MG 1 TAB PO PRN ×2 (05:42→22:18)
[2021-07-15 06:16] LABS: BASOPHILS % (AUTO) 0.2 % (0.0-2.0); EOSINOPHILS # (AUTO) 0.1 K/uL (0-0.4); EOSINOPHILS % (AUTO) 0.8 % (0.0-4.0); HEMATOCRIT 23.6 % (36-48); HEMOGLOBIN 7.7 g/dL (12.0-16.0); LYMPHOCYTES # (AUTO) 3.6 K/uL (2.5-16.5); LYMPHOCYTES % (AUTO) 24.1 % (20.5-51.1); MEAN CORPUSCULAR HEMOGLOBIN 31 pg (27-31); MEAN CORPUSCULAR HGB CONC 33 g/dL (33-37); MEAN CORPUSCULAR VOLUME 93.9 fL (80-94); MONOCYTES # (AUTO) 1.1 K/uL (0.8-1.0); MONOCYTES % (AUTO) 7.4 % (1.7-9.3); NEUTROPHILS # (AUTO) 10.1 K/uL (1.8-7.7); NEUTROPHILS % (AUTO) 67.5 % (42.2-75.2); PLATELET COUNT (AUTO) 146 K/uL (140-450); RED BLOOD CELL COUNT(AUTO) 2.51 MIL/uL (4.20-5.40); RED CELL DISTRIBUTION WIDTH 17.9 % (11.6-13.7)
[2021-07-15 06:36] LABS: ANION GAP 10.3 (8-16); CARBON DIOXIDE 28.9 mmol/L (21-32); CHLORIDE 112 mmol/L (98-107); GLUCOSE 109 mg/dL (74-106); POTASSIUM 3.2 mmol/L (3.5-5.1); SODIUM SERUM 148 mmol/L (136-145); UREA NITROGEN, BLOOD 41 mg/dL (7-18)
--- NOTE | 2021-07-15 07:25 | NUR ---
RECEIVED REPORT FROM LOTTERY MANAGER RN FOR CONTINUITY OF CARE. PATIENT IS RESTING. NO S/S OF DISTRESS. RESPIRATIONS ARE EVEN AND UNLABORED. ALL SAFETY PRECAUTIONS IN PLACE.
[2021-07-15] MEDS: ALBUTEROL SULFATE/IPRATROPIU 3 ML SOL IH SCH ×3 (07:41→19:43)
[2021-07-15 08:00] VITALS: BP 119/57
[2021-07-15] MEDS: amLODIPine 5 MG TAB GT SCH (09:55)
[2021-07-15] MEDS: glipiZIDE 5 MG TAB GT SCH (09:55)
[2021-07-15] MEDS: PANTOPRAZOLE 40 MG TABEC PO SCH (09:55)
[2021-07-15] MEDS: ASCORBIC ACID 500 MG TAB GT SCH (09:55)
--- NOTE | 2021-07-15 10:07 | NUR ---
ADMINISTERED SCHEDULED MEDICATIONS. NO RESIDUAL NOTED. PATIENT IS AWAKE WITH NO S/S OF DISTRESS. ALL SAFETY PRECAUTIONS IN PLACE.
--- NOTE | 2021-07-15 11:50 | NUR ---
WOUND CARE EVALUATION NOTE: PT. ADMITTED WITH LOW CHIKIS SCALE AT RISK, +1 EDEMA TO ALL EXTREMITIES WITH SEVERE CONTRACTURES,STIFFNESS TO NECK. RIGHT HAND SKIN TEARS ASSESSED, POC DISCUSSED WITH PRIMARY RN. -ORAL MEMBRANE PINK INTACT, LIPS, CHEEKS SKIN MOIST, NO OPEN WOUNDS -TRACH SITE LEBRON STOMA SKIN DRY AND CLEAN. SKIN INTACT. -GT SITE LEBRON STOMA WITH SKIN INTACT. -SKIN TEAR 5CM X 4CM SUPERFICIAL DEPTH WITH LEBRON WOUND BLISTERING INTACT THIN SKIN, EASILY TO TORN. -BLANCHABLE REDNESS TO BILATERAL HEELS RECOMMENDATIONS: -CLEANSE RIGHT HAND SKIN TEAR WITH NS, PAT DRY, APPLY OIL EMULSION DRESSING AND COVER WITH DRY DRESSING, WRAP WITH KERLIX ROLL QD AND PRN IF SOILING -APPLY FORM DRESSING TO SACROCOCCYX AND RIGHT AND LEFT KNEES,HEELS Q7 DAYS AND PRN IF SOILING PREVENTION -APPLY HEEL PROTECTORS TO BOTH HEELS AT ALL TIMES -OFFLOAD BILATERAL HEELS BY PLACING PILLOWS UNDER CALVES UNLESS OTHERWISE CONTRAINDICATED -PRESSURE REDISTRIBUTION SURFACE THERAPY -TURN AND REPOSITION Q2H, OFFLOAD SACRALCOCCYX AND BUTTOCKS BY TURNING RIGHT AND LEFT -CONTINUE TO FOLLOW RD RECOMMENDATIONS
[2021-07-15 12:00] VITALS: BP 101/41
--- NOTE | 2021-07-15 13:40 | NUR ---
ADMINISTERED SCHEDULED MEDICATION. PATIENT DOES NOT SHOW ANY S/S OF DISTRESS. ALL SAFETY PRECAUTIONS IN PLACE. WILL CONTINUE TO MONITOR.
[2021-07-15] MEDS: DEXT 5% / NACL 0.45% 1,000 ML IV SCH (14:17)
--- NOTE | 2021-07-15 15:10 | NUR ---
DC PLANNING: THE PATIENT WAS ADMITTED [place] [facility] AND IS KNOWN TO INTERN ARCHITECT FROM PRIOR ADMISSIONS. SHE IS TRACH TO VENT WITH PEG AND WAS ELEVATED FOR HYPERKALEMIA AND ANEMIA. SHE HAS DEVELOPED A NEW ISSUE OF BITING HER TONGUE WITH SIGNIFICANT BLEEDING REQUIRING SUCTIONING OF BLOOD CLOTS. BITE BLOCK WAS PLACED A SHORT TERM SOLUTION TO SEE IF BITING WILL STOP. THE PATIENT IS NON-VERBAL AND CONTRACTURED AND HAS BEEN AT [facility] FOR 17 YEARS. SHE IS BEDBOUND AND TOTAL CARE. PER [facility] THERE IS NO FAMILY INVOLVEMENT AND VERY RARE CONTACT FROM THEM. THE PLAN IS FOR THE PATIENT TO RETURN TO [facility] WHEN SHE IS CLINICALLY STABLE. CM WILL FOLLOW FOR NEEDS. Addendum: 07/17/21 at 1425 by Beba Crowell DC PLANNING: PATIENT NOW ON IV ABX X 3, SPUTUM CULTURES PENDING SENSITIVITY. TRACH TO VENT, FIO2 32%, H&H DROPPED REQUIRING 1 UNIT PRBC'S. GI CONSULT TO EVALUATE, PULMONARY FOLLOWING. PATIENT IS FROM [facility], ANTICIPATE WILL RETURN THERE WHEN CLINICALLY STABLE. CM WILL FOLLOW FOR NEEDS. Addendum: 07/17/21 at 1532 by Beba Crowell CM DC PLANNING: WHEN PATIENT IS DC'D SHE WILL NEED TRANSPORT WITH [facility]. HER M/ALLA COVERS THIS TRANSPORT, [facility] WILL NEED A M/ALLA PCS FORM FAXED TO THEM WITH THE SIGNATURE. [facility] HAS TRIED IN THE PAST TO STATE THAT THE HOSPITAL HAS TO PAY FOR TRANSPORT WHICH IS INCORRECT, THE PATIENTS INSURANCE WILL COVER AMBULANCE TRANSPORT BACK TO THE SNF/SUBACUTE. CM WILL FOLLOW FOR NEEDS. Addendum: 07/20/21 at 1335 by Beba Crowell CM DC PLANNING: DC ORDER RECEIVED FOR PATIENT TO RETURN TO [facility] AND CONTINUE [place] IV. REFERRAL FAXED TO [facility], PATIENT ACCEPTED AND ASSIGNED ROOM 2A, ACCEPTING MD DR. KEYS. TRANSPORT ARRANGED WITH [facility], CCT LEVEL FOR 4:00 O'CLOCK SUPERVISOR TELEPHONE ANSWERING SERVICE. PATIENTS RN NOTIFIED OF DC TIME, CM WILL FOLLOW FOR NEEDS.
[2021-07-15 16:00] VITALS: BP 124/59
[2021-07-15] MEDS ORDERED: POTASSIUM CHLORIDE 20% 40 MEQ/15 ML UDC ONE (18:46)
--- NOTE | 2021-07-15 19:33 | NUR ---
ENDORSED PATIENT TO MATERIAL PREPARATION WORKER RN FOR CONTINUITY OF CARE. PATIENT IS STABLE.
[2021-07-15] MEDS ORDERED: POTASSIUM CHLORIDE 20% 40 MEQ/15 ML UDC GT SCH (20:00)
[2021-07-15] MEDS: SIMVASTATIN 10 MG TAB GT SCH (21:00)
[2021-07-15 21:25] VITALS: BP 135/70
[2021-07-15] MEDS: ZOLPIDEM 5 MG TAB PO PRN (22:18)
--- NOTE | 2021-07-15 23:04 | NUR ---
I RECEIVED PT IN IN BED N/V ON VENT SETTING PER MD ORDERS VSS KAYLIN LEFT ARM WITH CLEAN DRESSING ON IVF VIA PICC LINE SITE INTACT ,HAS AFC WITH CLEAR URINE [id number] SEEMS IN DISCOFORT I GAVE PETERSON AND ZENIA
[2021-07-16 01:14] VITALS: BP 151/61
[2021-07-16] MEDS: HYDROcodone/APAP 7.5/325 MG 1 TAB PO PRN ×2 (03:53→23:21)
[2021-07-16] MEDS: ACETAMINOPHEN 325 MG TAB PO PRN (03:53)
[2021-07-16 04:15] VITALS: BP 145/70
[2021-07-16] MEDS: PIPERACILLIN/TAZOBACTAM 2.25 GM in DEXTROSE 5% 50 ML IV SCH ×3 (05:00→21:00)
[2021-07-16 05:50] LABS: BASOPHILS % (AUTO) 0.2 % (0.0-2.0); EOSINOPHILS # (AUTO) 0.4 K/uL (0-0.4); EOSINOPHILS % (AUTO) 2.2 % (0.0-4.0); HEMATOCRIT 21.7 % (36-48); HEMOGLOBIN 7.2 g/dL (12.0-16.0); LYMPHOCYTES # (AUTO) 4.5 K/uL (2.5-16.5); MEAN CORPUSCULAR HEMOGLOBIN 31 pg (27-31); MEAN CORPUSCULAR HGB CONC 33 g/dL (33-37); MEAN CORPUSCULAR VOLUME 93.4 fL (80-94); MONOCYTES # (AUTO) 1.3 K/uL (0.8-1.0); MONOCYTES % (AUTO) 8.3 % (1.7-9.3); NEUTROPHILS # (AUTO) 9.8 K/uL (1.8-7.7); NEUTROPHILS % (AUTO) 61.3 % (42.2-75.2); PLATELET COUNT (AUTO) 131 K/uL (140-450); RED BLOOD CELL COUNT(AUTO) 2.32 MIL/uL (4.20-5.40); RED CELL DISTRIBUTION WIDTH 17.9 % (11.6-13.7); WHITE BLOOD COUNT (AUTO) 15.9 K/uL (4.8-10.8)
[2021-07-16 05:58] LABS: ANION GAP 11.1 (8-16); CHLORIDE 110 mmol/L (98-107); GLUCOSE 124 mg/dL (74-106); POTASSIUM 3.1 mmol/L (3.5-5.1); SODIUM SERUM 147 mmol/L (136-145); UREA NITROGEN, BLOOD 32 mg/dL (7-18)
[2021-07-16] MEDS: DEXT 5% / NACL 0.45% 1,000 ML IV SCH ×2 (06:02→23:20)
--- NOTE | 2021-07-16 07:29 | NUR ---
PT CAME DOWN AND SLEPT WELL AFTER GIVING NORCO FOR DISCOMFRT
--- NOTE | 2021-07-16 07:35 | NUR ---
RECEIVED REPORT FROM CAMP DINING ROOM ATTENDANT RN FOR CONTINUITY OF CARE. PATIENT O2 SAT WAS AT 35%. I ASKED DANIE SHERIDAN FOR ASSISTANCE IN CALLING RT. I SUCTIONED PATIENT 3 TIMES AND PATIENT'S O2 SAT WENT BACK UP AT 95%. PATIENT IS NOW STABLE.
--- NOTE | 2021-07-16 07:40 | NUR ---
NURSE LATA AT BEDSIDE AND ASKED FOR ME TO CALL RT DUE TO PT DESATING TO 35% O2 SAT. CALLED STEWART RT AND SHE STATED TO CALL JOSE ANTONIO. CALLED JOSE ANTONIO RT AND SHE IS NOW AT BEDSIDE ASSESSING PT. LATA RN SUCTIONED PT THROUGH TRACH THREE TIMES AND O2 SAT WENT BACK UP TO 95%. PT IS STABLE.
[2021-07-16] MEDS: ALBUTEROL SULFATE/IPRATROPIU 3 ML SOL IH SCH ×3 (07:41→19:37)
[2021-07-16 08:00] VITALS: BP 103/58
[2021-07-16] MEDS ORDERED: VANCOMYCIN PER PHARMACY MC PRN (09:30)
[2021-07-16] MEDS ORDERED: INSULIN LISPRO SLIDING SCALE 100 UNITS/ML VIAL SUBQ PRN (10:15)
[2021-07-16] MEDS ORDERED: DEXTROSE 50% 50 ML SYR IVP PRN (10:15)
[2021-07-16] MEDS: PANTOPRAZOLE 40 MG TABEC PO SCH (10:22)
[2021-07-16] MEDS: ASCORBIC ACID 500 MG TAB GT SCH (10:23)
[2021-07-16] MEDS: amLODIPine 5 MG TAB GT SCH (10:23)
[2021-07-16] MEDS: glipiZIDE 5 MG TAB GT SCH (10:23)
--- NOTE | 2021-07-16 10:31 | NUR ---
ADMINISTERED SCHEDULED MEDICATIONS. PATIENT TOLERATED WELL. NO RESIDUAL NOTED. ALL SAFETY PRECAUTIONS IN PLACE.
[2021-07-16] MEDS: VANCOMYCIN HCL 1.25 GM in DEXTROSE 5% 250 ML IV SCH (11:56)
[2021-07-16 12:00] VITALS: BP 116/56
[2021-07-16] MEDS: BLOOD GLUCOSE MONITORING 1 DEV DEV FS SCH ×3 (12:10→21:00)
--- NOTE | 2021-07-16 12:15 | NUR ---
PATIENT RESTING. NO S/S OF DISTRESS. ALL SAFETY PRECAUTIONS IN PLACE. WILL CONTINUE TO MONITOR.
--- NOTE | 2021-07-16 13:41 | NUR ---
07/16/21 RD FOLLOW UP COMPLETED PLEASE REFER TO NUTRITION ASSESSMENT UNDER CARE ACTIVITY FOR ESTIMATED NUTRITIONAL NEEDS. 1. CONTINUE VITAL AF 1.2 @ 40 ML/HR - THIS WILL PROVIDE 1,152 KCAL AND 68 G OF PROTEIN WHICH WILL MEET ESTIMATED NUTRITIONAL NEEDS. 2. CONTINUE FREE WATER FLUSH 135ML/HR Q6H. 3. RD TO FOLLOW-UP 2-3 DAYS, HIGH RISK MARIA ELENA LEMA RD
--- NOTE | 2021-07-16 14:00 | NUR ---
PATIENT IS RESTING. NO S/S OF DISTRESS. ALL SAFETY PRECAUTIONS IN PLACE. WILL CONTINUE TO MONITOR.
[2021-07-16 16:00] VITALS: BP 121/59
--- NOTE | 2021-07-16 16:20 | NUR ---
CLEANED AND CHANGED PATIENT. PATIENT TOLERATED ACTIVITY WELL. ALL SAFETY PRECAUTIONS IN PLACE.
--- NOTE | 2021-07-16 19:30 | NUR ---
ENDORSED PATIENT TO FLASH OVEN OPERATOR RN FOR CONTINUITY OF CARE. PATIENT IS STABLE.
[2021-07-16] MEDS: SIMVASTATIN 10 MG TAB GT SCH (21:00)
[2021-07-16 21:16] VITALS: BP 140/74
[2021-07-16] MEDS: ZOLPIDEM 5 MG TAB PO PRN (23:21)
--- NOTE | 2021-07-16 23:22 | NUR ---
I RECEIVED PT IN BED FROM OUT GOING NURSEPT WAS AWAKE BUT NON VERBAL CONTRACTED UPPER ANDLOWER EXTREMITYHAS A BLISTER ON RIHGT HAND WITH A CLEAN DRESSING , ON GTF NO RESIDUAL ON IVF VIA RT UPPER ARM PICC LINE IS INTACTHE IS ON VENTILATOR SETTING PER S ORDERSHAS AFC WITH CLEAR URINEVSS SR LATER IGAVE HIM NORCO AND ABIEN FOR DISCOMFORT WAS REPOSITIONED
--- NOTE | 2021-07-17 01:00 | NUR ---
PT IS SLEEPINGQUIETRY VSS SRREPOSITIONED
[2021-07-17] MEDS: PIPERACILLIN/TAZOBACTAM 2.25 GM in DEXTROSE 5% 50 ML IV SCH ×3 (05:13→20:05)
[2021-07-17 05:18] VITALS: BP 132/74
--- NOTE | 2021-07-17 05:23 | NUR ---
PT SLEPT WELL AM CARE GIVEN STILL PT ON VENT NO CHANGES , ON GTF NO RESIDUAL ON IVF SITE INTAC
[2021-07-17 05:57] LABS: BASOPHILS % (AUTO) 0.3 % (0.0-2.0); EOSINOPHILS # (AUTO) 0.6 K/uL (0-0.4); EOSINOPHILS % (AUTO) 5.9 % (0.0-4.0); LYMPHOCYTES # (AUTO) 3.4 K/uL (2.5-16.5); LYMPHOCYTES % (AUTO) 35.8 % (20.5-51.1); MEAN CORPUSCULAR HEMOGLOBIN 32 pg (27-31); MEAN CORPUSCULAR HGB CONC 34 g/dL (33-37); MEAN CORPUSCULAR VOLUME 94.2 fL (80-94); MONOCYTES # (AUTO) 0.7 K/uL (0.8-1.0); NEUTROPHILS # (AUTO) 4.9 K/uL (1.8-7.7); PLATELET COUNT (AUTO) 125 K/uL (140-450); RED BLOOD CELL COUNT(AUTO) 2.03 MIL/uL (4.20-5.40); RED CELL DISTRIBUTION WIDTH 18.2 % (11.6-13.7); WHITE BLOOD COUNT (AUTO) 9.6 K/uL (4.8-10.8)
[2021-07-17 06:21] LABS: HEMOGLOBIN 6.4 g/dL (12.0-16.0)
[2021-07-17 06:22] LABS: HEMATOCRIT 19.1 % (36-48)
[2021-07-17 06:24] LABS: ANION GAP 11.4 (8-16); CARBON DIOXIDE 27.4 mmol/L (21-32); CHLORIDE 109 mmol/L (98-107); GLUCOSE 126 mg/dL (74-106); SODIUM SERUM 145 mmol/L (136-145); UREA NITROGEN, BLOOD 29 mg/dL (7-18)
[2021-07-17 06:34] LABS: POTASSIUM 2.8 mmol/L (3.5-5.1)
[2021-07-17] MEDS ORDERED: KCL 20 MEQ/WATER INJ PREMIX 200 ML IV ONE (06:35)
[2021-07-17] MEDS: POTASSIUM CHLORIDE 10 MEQ TABER PO PRN (06:44)
[2021-07-17] MEDS: ACETAMINOPHEN 325 MG TAB PO PRN (06:45)
[2021-07-17] MEDS: BLOOD GLUCOSE MONITORING 1 DEV DEV FS SCH ×4 (06:58→20:05)
[2021-07-17] MEDS: ALBUTEROL SULFATE/IPRATROPIU 3 ML SOL IH SCH ×3 (07:00→20:16)
--- NOTE | 2021-07-17 07:25 | NUR ---
Received report from pm nurse Craft. Pt asleep, respirations even & nonlabored with trach to vent in place. GT intact with ongoing feeding Vital AF 1.2 @ 40ml/hr. Melissa cath intact, no leaks noted. Right upper arm PICC intact with ongoing D5 1/2NS @ 60ml/hr. HOB elevated @ 30.
[2021-07-17 08:00] VITALS: BP 109/42
[2021-07-17] MEDS: ASCORBIC ACID 500 MG TAB GT SCH (08:08)
[2021-07-17] MEDS: glipiZIDE 5 MG TAB GT SCH (08:08)
[2021-07-17] MEDS: PANTOPRAZOLE 40 MG TABEC PO SCH (08:08)
[2021-07-17] MEDS: amLODIPine 5 MG TAB GT SCH ×2 (08:08→09:00)
[2021-07-17] MEDS: ALBUTEROL SULFATE/IPRATROPIU 3 ML SOL IH PRN (08:09)
--- NOTE | 2021-07-17 10:10 | NUR ---
Started blood transfusion 1 pack PRBC. Pt resting in bed, respirations even & nonlabored, trach to vent in place (A/C PC FiO2 28%, Pinsp 32, R 16, Tinsp 0.90, PEEP 5, Pmax 45). RN remains at bedside for continuous monitoring.
[2021-07-17 12:00] VITALS: BP 138/63
--- NOTE | 2021-07-17 13:00 | NUR ---
Completed blood transfusion 1 unit PRBC. No signs of transfusion reaction.
[2021-07-17] MEDS: VANCOMYCIN HCL 1.25 GM in DEXTROSE 5% 250 ML IV SCH (14:11)
[2021-07-17 14:56] LABS: BASOPHILS % (AUTO) 0.2 % (0.0-2.0); EOSINOPHILS # (AUTO) 0.5 K/uL (0-0.4); EOSINOPHILS % (AUTO) 4.8 % (0.0-4.0); HEMATOCRIT 24.5 % (36-48); HEMOGLOBIN 8.1 g/dL (12.0-16.0); LYMPHOCYTES # (AUTO) 3.8 K/uL (2.5-16.5); LYMPHOCYTES % (AUTO) 36.8 % (20.5-51.1); MEAN CORPUSCULAR HEMOGLOBIN 31 pg (27-31); MEAN CORPUSCULAR HGB CONC 33 g/dL (33-37); MEAN CORPUSCULAR VOLUME 94.2 fL (80-94); MONOCYTES # (AUTO) 0.7 K/uL (0.8-1.0); MONOCYTES % (AUTO) 6.6 % (1.7-9.3); NEUTROPHILS # (AUTO) 5.3 K/uL (1.8-7.7); NEUTROPHILS % (AUTO) 51.6 % (42.2-75.2); PLATELET COUNT (AUTO) 133 K/uL (140-450); RED CELL DISTRIBUTION WIDTH 17.6 % (11.6-13.7); WHITE BLOOD COUNT (AUTO) 10.4 K/uL (4.8-10.8)
[2021-07-17] MEDS ORDERED: FLUCONAZOLE 100 MG/NS PREMIX 50 ML IV SCH (15:00)
[2021-07-17] MEDS: DEXT 5% / NACL 0.45% 1,000 ML IV SCH (15:40)
[2021-07-17 15:51] LABS: CARBON DIOXIDE 26.5 mmol/L (21-32); CHLORIDE 109 mmol/L (98-107); GLUCOSE 135 mg/dL (74-106); POTASSIUM 3.5 mmol/L (3.5-5.1); SODIUM SERUM 143 mmol/L (136-145); UREA NITROGEN, BLOOD 30 mg/dL (7-18)
[2021-07-17 16:00] VITALS: BP 144/63
--- NOTE | 2021-07-17 19:15 | NUR ---
RECEIVED PT REPORT FROM DAYSOKFT NURSE FOR CONTINUITY OF CARE
[2021-07-17 20:00] VITALS: BP 155/70
[2021-07-17] MEDS: SIMVASTATIN 10 MG TAB GT SCH (20:05)
--- NOTE | 2021-07-17 20:05 | NUR ---
SCHEDULED SIMVASTATIN GIVEN VIA G TUBE. PT TOLERATED WELL. HANGED SCHEDULED PIPERACILIN. CHECKED BS, IT WAS 103. NO INSULIN COVERAGE GIVEN.
--- NOTE | 2021-07-17 20:14 | NUR ---
CHECKED GASTRIC RESIDUAL IT WAS 150. TITRATE FEEDING TO 20ML. WILL RESUME GOAL OF 40 ORDERED.
--- NOTE | 2021-07-17 22:00 | NUR ---
PATIENT RESTING ON BED, HOB ELEVATED 30 DEGREES. ON VENTILATOR WITH FI02 28% WITH 97% O2 SAT. NO SIGNS OF DISTRESS, G TUBE IN PLACE, DAVENPORT CATH IN PLACE, SAFETY MEASURES IMPLEMENTED.
--- NOTE | 2021-07-17 22:01 | NUR ---
CHECKED RESIDUAL, NO GASTRIC RESIDUAL NOTED. RESUME 40 ML TUBE FEEDING ORDERED
[2021-07-18] VITALS: BP 160/64
--- NOTE | 2021-07-18 01:28 | NUR ---
PT RESTING ON BED. ON TRACH-VENT SETTING. FIO2 28%. NO SIGNS OF DISTRESS. SAFETY MEASURES IMPLEMENTED
[2021-07-18 04:00] VITALS: BP 111/75
--- NOTE | 2021-07-18 04:00 | NUR ---
HANGED SCHEDULED PIPERACILLIN ABX.
[2021-07-18] MEDS: PIPERACILLIN/TAZOBACTAM 2.25 GM in DEXTROSE 5% 50 ML IV SCH ×3 (04:02→21:59)
[2021-07-18] MEDS: DEXT 5% / NACL 0.45% 1,000 ML IV SCH (05:23)
[2021-07-18 06:08] LABS: BASOPHILS % (AUTO) 0.2 % (0.0-2.0); EOSINOPHILS # (AUTO) 0.5 K/uL (0-0.4); EOSINOPHILS % (AUTO) 4.1 % (0.0-4.0); HEMATOCRIT 23.3 % (36-48); HEMOGLOBIN 7.7 g/dL (12.0-16.0); LYMPHOCYTES # (AUTO) 1.8 K/uL (2.5-16.5); LYMPHOCYTES % (AUTO) 16.4 % (20.5-51.1); MEAN CORPUSCULAR HEMOGLOBIN 31 pg (27-31); MEAN CORPUSCULAR HGB CONC 33 g/dL (33-37); MEAN CORPUSCULAR VOLUME 92.1 fL (80-94); MONOCYTES # (AUTO) 0.6 K/uL (0.8-1.0); MONOCYTES % (AUTO) 5.8 % (1.7-9.3); NEUTROPHILS # (AUTO) 8.2 K/uL (1.8-7.7); NEUTROPHILS % (AUTO) 73.5 % (42.2-75.2); PLATELET COUNT (AUTO) 145 K/uL (140-450); RED BLOOD CELL COUNT(AUTO) 2.53 MIL/uL (4.20-5.40); RED CELL DISTRIBUTION WIDTH 17.7 % (11.6-13.7); WHITE BLOOD COUNT (AUTO) 11.1 K/uL (4.8-10.8)
[2021-07-18] MEDS: BLOOD GLUCOSE MONITORING 1 DEV DEV FS SCH ×4 (06:31→21:00)
--- NOTE | 2021-07-18 06:31 | NUR ---
CHECKED SCHEDULED BS, IT WAS 120. NO INSULIN COVERAGE GIVEN. PERFORMED ORAL CARE, SUCTIONING, AND PERINEAL CARE
[2021-07-18 07:16] LABS: ANION GAP 12.2 (8-16); CARBON DIOXIDE 25.3 mmol/L (21-32); CHLORIDE 111 mmol/L (98-107); GLUCOSE 147 mg/dL (74-106); POTASSIUM 3.5 mmol/L (3.5-5.1); SODIUM SERUM 145 mmol/L (136-145); UREA NITROGEN, BLOOD 26 mg/dL (7-18)
--- NOTE | 2021-07-18 07:36 | NUR ---
ENDORSE PT TO DAYSHIFT NURSE FOR CONTINUITY OF CARE
--- NOTE | 2021-07-18 07:37 | NUR ---
RECEIVED REPORT FROM HARDWARE SUPPLIES SALES REPRESENTATIVE RN FOR CONTINUITY OF CARE. PT IS STABLE. RESPIRATIONS EVEN AND UNLABORED. NO DISTRESS NOTED. ON TRACH TO VENT FIO2 28%. SKIN IS WARM AND DRY. HAS BLISTER ON RIGHT HAND. INTACT AND NO DRAINAGE NOTED. S/P 1 UNIT OF PRBC. HAS OMAR PICC LINE INFUSING FLUIDS WELL. INTACT AND PATENT. ISOLATION IN PLACE. SAFETY PRECAUTION IN PLACE. CALL LIGHT WITHIN REACH. WILL CONTINUE TO MONITOR.
[2021-07-18] MEDS: ALBUTEROL SULFATE/IPRATROPIU 3 ML SOL IH SCH ×2 (07:43→12:48)
[2021-07-18 08:00] VITALS: BP 122/88
[2021-07-18] MEDS: PANTOPRAZOLE 40 MG TABEC PO SCH (08:26)
[2021-07-18] MEDS: ASCORBIC ACID 500 MG TAB GT SCH (08:27)
[2021-07-18] MEDS: amLODIPine 5 MG TAB GT SCH (08:27)
[2021-07-18] MEDS: glipiZIDE 5 MG TAB GT SCH (08:27)
--- NOTE | 2021-07-18 08:30 | NUR ---
ALL SCHEDULED MEDS GIVEN. PT IS STABLE. NO DISTRESS NOTED. WILL CONTINUE TO MONITOR.
--- NOTE | 2021-07-18 10:14 | NUR ---
07/18/21 RD FOLLOW UP COMPLETED PLEASE REFER TO NUTRITION ASSESSMENT UNDER CARE ACTIVITY FOR ESTIMATED NUTRITIONAL NEEDS. 1. CONTINUE VITAL AF 1.2 @ 40 ML/HR - THIS WILL PROVIDE 1,152 KCAL AND 68 G OF PROTEIN WHICH WILL MEET ESTIMATED NUTRITIONAL NEEDS. 2. CONTINUE FREE WATER FLUSH 135ML/HR Q6H. 3. RD TO FOLLOW-UP 2-3 DAYS, HIGH RISK VICKY LOVE, RD
--- NOTE | 2021-07-18 11:36 | NUR ---
BLOOD GLUCOSE CHECK WAS 74. NO INSULIN COVERAGE NEEDED.
[2021-07-18 12:00] VITALS: BP 124/52
--- NOTE | 2021-07-18 13:30 | NUR ---
CHECKED ON PATIENT. PATIENT IS STABLE. NO DISTRESS NOTED. WILL CONTINUE TO MONITOR.
[2021-07-18 16:00] VITALS: BP 120/43
--- NOTE | 2021-07-18 17:30 | NUR ---
BLOOD GLUCOSE CHECK WAS 87. NO INSULIN COVERAGE NEEDED.
--- NOTE | 2021-07-18 19:30 | NUR ---
ENDORSED TO OIL WELL DIRECTIONAL SURVEYOR NURSE FOR CONTINUITY OF CARE. PT IS STABLE.
--- NOTE | 2021-07-18 19:31 | NUR ---
RECEIVED REPORT FROM AM NURSE. PATIENT IN BED RESTING. NO S/S OF RESPIRATORY DISTRESS. BREATHING EVEN UNLABORED. TRACH TO VENT, FIO2 AT 28. IVF D5 1/2 NS INFUSING ON THE RIGHT UPPER ARM PICC LINE. G-TUBE IN PLACE RUNNING VITAL AF 1.2 . DAVENPORT CATHETER IN PLACE DRAINING CLEAR YELLOW URINE. ALL SAFETY PRECAUTIONS ARE IN PLACE. WILL CONTINUE TO MONITOR PT.
[2021-07-18 20:00] VITALS: BP 115/63
[2021-07-18] MEDS ORDERED: VANCOMYCIN 1,000 MG in DEXTROSE 5% 250 ML IV SCH (21:00)
--- NOTE | 2021-07-18 21:59 | NUR ---
DUE MEDS GIVEN PER MD ORDERED.
[2021-07-18] MEDS: SIMVASTATIN 10 MG TAB GT SCH (22:12)
[2021-07-19] VITALS: BP 155/76
[2021-07-19] MEDS: DEXT 5% / NACL 0.45% 1,000 ML IV SCH ×2 (02:00→18:16)
--- NOTE | 2021-07-19 02:00 | NUR ---
PATIENT IS KEPT CLEAN, DRY AND COMFORTABLE. NO SOB NOTED.
[2021-07-19] MEDS: ALBUTEROL SULFATE/IPRATROPIU 3 ML SOL IH PRN (03:08)
[2021-07-19 04:00] VITALS: BP 158/69
[2021-07-19] MEDS: PIPERACILLIN/TAZOBACTAM 2.25 GM in DEXTROSE 5% 50 ML IV SCH (05:11)
[2021-07-19 05:36] LABS: BASOPHILS % (AUTO) 0.1 % (0.0-2.0); EOSINOPHILS # (AUTO) 0.6 K/uL (0-0.4); EOSINOPHILS % (AUTO) 5.1 % (0.0-4.0); HEMATOCRIT 23.4 % (36-48); HEMOGLOBIN 7.7 g/dL (12.0-16.0); LYMPHOCYTES # (AUTO) 2.3 K/uL (2.5-16.5); LYMPHOCYTES % (AUTO) 19.9 % (20.5-51.1); MEAN CORPUSCULAR HEMOGLOBIN 31 pg (27-31); MEAN CORPUSCULAR HGB CONC 33 g/dL (33-37); MEAN CORPUSCULAR VOLUME 93.5 fL (80-94); MONOCYTES # (AUTO) 0.7 K/uL (0.8-1.0); MONOCYTES % (AUTO) 5.9 % (1.7-9.3); NEUTROPHILS # (AUTO) 7.9 K/uL (1.8-7.7); PLATELET COUNT (AUTO) 191 K/uL (140-450); RED CELL DISTRIBUTION WIDTH 17.4 % (11.6-13.7); WHITE BLOOD COUNT (AUTO) 11.4 K/uL (4.8-10.8)
[2021-07-19] MEDS: BLOOD GLUCOSE MONITORING 1 DEV DEV FS SCH ×4 (06:40→21:09)
[2021-07-19 06:42] LABS: ANION GAP 13.1 (8-16); CARBON DIOXIDE 25.1 mmol/L (21-32); CHLORIDE 107 mmol/L (98-107); CREATININE 0.9 mg/dL (0.6-1.3); GLUCOSE 347 mg/dL (74-106); POTASSIUM 3.2 mmol/L (3.5-5.1); SODIUM SERUM 142 mmol/L (136-145); UREA NITROGEN, BLOOD 18 mg/dL (7-18)
[2021-07-19] MEDS: ALBUTEROL SULFATE/IPRATROPIU 3 ML SOL IH SCH ×3 (07:02→21:09)
--- NOTE | 2021-07-19 07:33 | NUR ---
BEDSIDE ENDORSEMENT GIVEN TO AM NURSE FOR CONTINUITY OF CARE. PATIENT IS STABLE.
--- NOTE | 2021-07-19 07:34 | NUR ---
RECEIVED BEDSIDE REPORT FORM QUALITY INTERN NURSE SHELLEY SHERIDAN, PT AAOX0, APHASIC BASELINE. ON TRACH TO VENT ACPC FIO2 24%, RATE 16, PEEP 5, SATURATING @ 97%, NO SOB NOTED, PICC LINE TO R UPPER ARM, PATENT INTACT, INFUSING D5 1/2 NS @ 60ML/HR, INFUSING WELL, GT IN PLACE WITH FEEDING, FC IN PLACE DRAINING TO GRAVITY. INITIAL ASSESSMENT DONE, ALL SAFETY PRECAUTION MET, CALL LIGHT WITHIN REACH, WILL CONTINUE TO MONITOR.
[2021-07-19 08:00] VITALS: BP 146/60
--- NOTE | 2021-07-19 08:10 | NUR ---
CHECKED PT RESIDUAL 300ML, FEEDING HELD, WILL CONTINUE TO MONITOR.
[2021-07-19] MEDS: ASCORBIC ACID 500 MG TAB GT SCH (09:10)
[2021-07-19] MEDS: amLODIPine 5 MG TAB GT SCH (09:11)
[2021-07-19] MEDS: glipiZIDE 5 MG TAB GT SCH (09:11)
--- NOTE | 2021-07-19 09:11 | NUR ---
DUE MEDICATION ADMINISTERED, PT TOLERATED WELL, NO DISTRESS NOTED, WILL CONTINUE TO MONITOR.
[2021-07-19 12:00] VITALS: BP 142/75
--- NOTE | 2021-07-19 12:10 | NUR ---
RESIDUAL STILL AT 200ML. FEEDING CONTINUE TO BE HELD, WILL CONTINUE TO MONITOR.
[2021-07-19 16:00] VITALS: BP 132/50
--- NOTE | 2021-07-19 16:20 | NUR ---
PT RESIDUAL 100ML, FEEDING CONTINUED. WILL CONTINUE TO MONITOR.
--- NOTE | 2021-07-19 17:22 | NUR ---
PT BLOOD SUGAR 67, GAVE PT JUICE WITH SUGAR THROUGH GT. WILL CONTINUE TO MONITOR.
[2021-07-19] MEDS: POTASSIUM CHLORIDE 10 MEQ TABER PO PRN (18:53)
--- NOTE | 2021-07-19 19:23 | NUR ---
ENDORSED PT TO FINE UNHAIRER NURSE SHELLEY FOR CONTINUOUS OF CARE.
--- NOTE | 2021-07-19 19:24 | NUR ---
RECEIVED BEDSIDE REPORT FROM AM NURSE. PATIENT IS AWAKE NON VERBAL WITH TRACH TO VENT. NO S/S OF RESPIRATORY DISTRESS. BREATHING REGULAR UNLABORED. G-TUBE FEEDING ONGOING. IVF INFUSING AT 60 ML ON THE RIGHT UPPER ARM PICC LINE. DAVENPORT CATHETER IN PLACE DRAINING CLEAR YELLOW URINE. ALL SAFETY PRECAUTIONS ARE IN PLACE. WILL CONTINUE TO MONITOR.
[2021-07-19 20:00] VITALS: BP 118/49
[2021-07-19] MEDS: SIMVASTATIN 10 MG TAB GT SCH (20:36)
--- NOTE | 2021-07-19 20:41 | NUR ---
DUE MEDS GIVEN ORDERED.
[2021-07-19] MEDS ORDERED: MEROPENEM 1,000 MG in NACL 0.9% 100 ML IV SCH (21:00)
[2021-07-20] VITALS: BP 136/61
[2021-07-20 04:00] VITALS: BP 140/68
--- NOTE | 2021-07-20 04:00 | NUR ---
ASSISTED SAP SECURITY CONSULTANT IN CHANGING THE PATIENT.
[2021-07-20] MEDS: MEROPENEM 1,000 MG in NACL 0.9% 100 ML IV SCH ×2 (04:49→13:32)
[2021-07-20 06:05] LABS: CARBON DIOXIDE 27.9 mmol/L (21-32); CHLORIDE 110 mmol/L (98-107); CREATININE 0.8 mg/dL (0.6-1.3); GLUCOSE 98 mg/dL (74-106); POTASSIUM 3.9 mmol/L (3.5-5.1); SODIUM SERUM 144 mmol/L (136-145); UREA NITROGEN, BLOOD 15 mg/dL (7-18)
[2021-07-20 06:07] LABS: BASOPHILS % (AUTO) 0.2 % (0.0-2.0); EOSINOPHILS # (AUTO) 0.5 K/uL (0-0.4); EOSINOPHILS % (AUTO) 5.8 % (0.0-4.0); HEMATOCRIT 23.2 % (36-48); HEMOGLOBIN 7.6 g/dL (12.0-16.0); LYMPHOCYTES # (AUTO) 3.5 K/uL (2.5-16.5); LYMPHOCYTES % (AUTO) 38.3 % (20.5-51.1); MEAN CORPUSCULAR HEMOGLOBIN 31 pg (27-31); MEAN CORPUSCULAR HGB CONC 33 g/dL (33-37); MEAN CORPUSCULAR VOLUME 93.4 fL (80-94); MONOCYTES # (AUTO) 0.6 K/uL (0.8-1.0); MONOCYTES % (AUTO) 6.3 % (1.7-9.3); NEUTROPHILS # (AUTO) 4.5 K/uL (1.8-7.7); NEUTROPHILS % (AUTO) 49.4 % (42.2-75.2); PLATELET COUNT (AUTO) 220 K/uL (140-450); RED BLOOD CELL COUNT(AUTO) 2.48 MIL/uL (4.20-5.40); RED CELL DISTRIBUTION WIDTH 17.5 % (11.6-13.7)
[2021-07-20] MEDS: BLOOD GLUCOSE MONITORING 1 DEV DEV FS SCH ×3 (06:44→16:30)
--- NOTE | 2021-07-20 07:25 | NUR ---
BEDSIDE ENDORSEMENT GIVEN TO AM NURSE FOR CONTINUITY OF CARE. PATIENT IS IN STABLE CONDITION.
--- NOTE | 2021-07-20 07:26 | NUR ---
RECEIVED REPORT FROM FOOD TECHNICIAN NURSE. PT STABLE. NO S/S OF DISTRESS. BREATHING IS SYMMETRICAL. FLUIDS AND FEEDING RUNNING PER MD ORDERS. CALL LIGHT IN REACH. ALL SAFETY MEASURES IN PLACE.
[2021-07-20] MEDS: ALBUTEROL SULFATE/IPRATROPIU 3 ML SOL IH SCH (07:51)
[2021-07-20 08:00] VITALS: BP 138/58
[2021-07-20] MEDS ORDERED: ALBUTEROL SULFATE/IPRATROPIU 3 ML SOL IH PRN (08:30)
[2021-07-20] MEDS ORDERED: PANTOPRAZOLE 40 MG INJ VIAL IVP SCH (09:00)
[2021-07-20] MEDS: ASCORBIC ACID 500 MG TAB GT SCH (09:41)
[2021-07-20] MEDS: glipiZIDE 5 MG TAB GT SCH (09:41)
[2021-07-20] MEDS: amLODIPine 5 MG TAB GT SCH (09:41)
--- NOTE | 2021-07-20 09:45 | NUR ---
PATIENT RESTING IN BED. MEDICATIONS GIVEN PER MD ORDERS. GT RESIDUAL ASSESSED AND HIGH, WILL REASSESS AND NOTIFY MD. PT TOLERATING MEDICATIONS WELL. CALL LIGHT IN REACH. ALL SAFETY MEASURES IN PLACE.
[2021-07-20] MEDS: DEXT 5% / NACL 0.45% 1,000 ML IV SCH (11:12)
[2021-07-20] MEDS ORDERED: IV Meropenam IV (11:27)
--- NOTE | 2021-07-20 11:56 | NUR ---
PT RESIDUAL REASSESSED, STILL ABOVE MD PARAMETERS. MD NOTIFIED AND FEEDING HELD PER MD ORDERS. PT STABLE. NO S/S OF DISTRESS. BREATHING SYMMETRICAL. CALL LIGHT IN REACH. ALL SAFTEY MEASURES IN PLACE.
[2021-07-20 12:00] VITALS: BP 148/53
[2021-07-20] MEDS ORDERED: ALBUTEROL SULFATE/IPRATROPIU 3 ML SOL IH SCH (13:00)
--- NOTE | 2021-07-20 14:37 | NUR ---
PATIENT CHANGED REPOSITIONED, WOUND CARE PERFORMED , PICTURES OBTAINED. PT TOLERATED WELL 02% 99%. PT UNABLE TO MAKE NEEDS KNOWN . FLACC 0. ALL SAFETY MEASURES ARE IN PLACE.
[2021-07-20 16:00] VITALS: BP 146/63
--- NOTE | 2021-07-20 16:24 | NUR ---
GAVE REPORT TO ALEXANDRA AT [facility] AT [phone]. [facility] ALREADY ARRIVED TO TRANSPORT PATIENT TO FACILITY. PT STABLE. TELE REMOVED. DISCHARGE FORMS GIVEN TO TRANSPORT TEAM. ALL SAFETY MEASURES IN PLACE
== END 2021-07-20 16:45 | DRG 720 ==
LOC: MED 15:40 → MTU 18:22
PROVIDERS: ADMIT Family Medicine; ATTEND Family Medicine
PROC: 5A1955Z Respiratory Ventilation, Greater than 96 Consecutive Hours (ICD-10-PCS; principal; 2021-07-13)
PROC: 30233N1 Transfusion of Nonautologous Red Blood Cells into Peripheral Vein, Percutaneous Approach (ICD-10-PCS; 2021-07-13)
DX: A41.9 Sepsis, unspecified organism (principal); J96.21 Acute and chronic respiratory failure with hypoxia; J15.6 Pneumonia due to other Gram-negative bacteria; E83.41 Hypermagnesemia; E83.39 Other disorders of phosphorus metabolism; D50.0 Iron deficiency anemia secondary to blood loss (chronic); E11.9 Type 2 diabetes mellitus without complications; E87.0 Hyperosmolality and hypernatremia; Z93.0 Tracheostomy status; E86.0 Dehydration; R13.10 Dysphagia, unspecified; Z93.1 Gastrostomy status; F03.90 Unspecified dementia, unspecified severity, without behavioral disturbance, psychotic disturbance, mood disturbance, and anxiety; Z16.12 Extended spectrum beta lactamase (ESBL) resistance; K21.9 Gastro-esophageal reflux disease without esophagitis; R58 Hemorrhage, not elsewhere classified; E87.6 Hypokalemia; Z20.822 Contact with and (suspected) exposure to COVID-19; E87.5 Hyperkalemia; E78.5 Hyperlipidemia, unspecified; I10 Essential (primary) hypertension; Z86.73 Personal history of transient ischemic attack (TIA), and cerebral infarction without residual deficits; Z79.899 Other long term (current) drug therapy
CPT/HCPCS: 36415; 36430; 71045; 80048; 80053; 80202; 81003; 82150; 82272; 82948; 83036; 83605; 83690; 83735; 83880; 84100; 84436; 84439; 84443; 84479; 84484; 85025; 85610; 85730; 86886; 86900; 86901; 86920; 87040; 87070; 87081; 87086; 87205; 93005; 94002; 94003; 94640; 96361; 96365; 96367; 96375; 99285; C9113; J0696; J1450; J1815; J2185; J2405; J2543; J3370; J3490; J7060; P9016; U0003

== ENCOUNTER 2021-07-20 18:28 | Inpatient (IN) | payer MEDICAID, SELFPAY ==
[~2021-07-20] VITALS: Ht 157.5 cm; Wt 113.5 kg
[~2021-07-20 18:28] MED LIST changes: +IV Meropenam IV
--- NOTE | 2021-07-20 18:28 | NUR ---
JOSE ALS TO ER BED 1
[2021-07-20 18:39] VITALS: BP 147/51
--- NOTE | 2021-07-20 19:01 | NUR ---
76 YO FEM[place] [facility] LABORED BREATHING AND DESATING TO 70'S AT [facility] PER MEDICS. PATIENT WAS DISCHARGED FROM [place] TODAY AT 1700. AT THIS TIME PATIENT DOES NOT PRESENT WITH LABORED BREATHING, O2 SAT 100%. PATIENT HAS TRACH, PICC LINE, GTUBE, AND DAVENPORT CATHETER. SKIN IS EDEMATOUS, RIGHT HAND HAS 2 SKIN ABRASIONS. PATIENT IS A&OX0, GCS 7 (NORMAL TO PT D/T HX OF TBI), PLACED ON MONITOR, RT AT BEDSIDE. PMH:ARF, COPD, HYPERTENSIVE HEART DISEASE, DM TYPE 2, GERD, HYPOTHYROIDISM, TBI, ANEMIA, HTN, DISEASE OF PULMONARY VESSELS, PLEURAL EFFUSION. NKDA
--- NOTE | 2021-07-20 19:19 | NUR ---
MD AT BEDSIDE EVALUATING PATIENT.
--- NOTE | 2021-07-20 19:20 | NUR ---
REPORT AND CONTINUATION OF CARE GIVEN TO FATIMAH ARREDONDO.
--- NOTE | 2021-07-20 19:20 | NUR ---
REPORT RECIEVED FROM FATIMAH ORTIZ FOR CONTINUITY OF CARE.
--- NOTE | 2021-07-20 19:24 | NUR ---
XRAY AT BEDSIDE.
--- NOTE | 2021-07-20 19:33 | NUR ---
LABS DRAWN VIA PICC LINE AND HAND GIVEN TO MJ TRANSCRIPTER, AT BEDSIDE.
[2021-07-20 19:40] LABS: BASOPHILS % (AUTO) 0.3 % (0.0-2.0); EOSINOPHILS # (AUTO) 0.2 K/uL (0-0.4); HEMATOCRIT 20.9 % (36-48); LYMPHOCYTES # (AUTO) 0.4 K/uL (2.5-16.5); LYMPHOCYTES % (AUTO) 4.6 % (20.5-51.1); MEAN CORPUSCULAR HEMOGLOBIN 31 pg (27-31); MEAN CORPUSCULAR HGB CONC 33 g/dL (33-37); MONOCYTES # (AUTO) 0.5 K/uL (0.8-1.0); MONOCYTES % (AUTO) 5.5 % (1.7-9.3); NEUTROPHILS % (AUTO) 87.6 % (42.2-75.2); PLATELET COUNT (AUTO) 227 K/uL (140-450); RED BLOOD CELL COUNT(AUTO) 2.22 MIL/uL (4.20-5.40); RED CELL DISTRIBUTION WIDTH 17.2 % (11.6-13.7); WHITE BLOOD COUNT (AUTO) 9.2 K/uL (4.8-10.8)
[2021-07-20 19:43] LABS: HEMOGLOBIN 6.9 g/dL (12.0-16.0)
[2021-07-20 19:47] LABS: CARBON DIOXIDE 26.2 mmol/L (21-32); CHLORIDE 111 mmol/L (98-107); CREATININE 0.9 mg/dL (0.6-1.3); GLUCOSE 110 mg/dL (74-106); POTASSIUM 4.2 mmol/L (3.5-5.1); SODIUM SERUM 144 mmol/L (136-145); UREA NITROGEN, BLOOD 17 mg/dL (7-18)
--- NOTE | 2021-07-20 19:53 | NUR ---
PER DR. ZARAGOZA PHONED DAUGHTER, DENISSE NO ANSWER AT THIS TIME. VOICEMAIL LEFT, WILL ATTEMPT AGAIN.
--- NOTE | 2021-07-20 20:28 | NUR ---
Patient appears to be resting comfortably in bed, EYES OCCASSIONALY OPEN/CLOSED. Vital Signs within normal limits. Respirations even and unlabored. NO NOTED SIGNS OF DISTRESS. WILL CONTINUE TO MONITOR.
[2021-07-20] MEDS ORDERED: ACETAMINOPHEN 325 MG TAB PO PRN (21:55)
[2021-07-20] MEDS ORDERED: guaiFENesin DM 200/20 MG-10 ML 10 ML UDC PO PRN (21:55)
[2021-07-20] MEDS ORDERED: POTASSIUM CHLORIDE 10 MEQ TABER PO PRN (21:55)
[2021-07-20] MEDS ORDERED: ZOLPIDEM 5 MG TAB PO PRN (21:55)
--- NOTE | 2021-07-20 22:02 | NUR ---
Patient will be admitted to care of MD LUDMILA. Admited to TELE. Will go to room 124B. Belongings list completed. Report to FATIMAH ROSA.
--- NOTE | 2021-07-20 22:32 | NUR ---
PT TAKEN TO 124B TELE VIA [facility] WITH MARIA ELENA RN, JOEL EMT, AND CATARINA MORIN. SHELLEY AWARE OF PTS ARRIVAL.
--- NOTE | 2021-07-20 22:40 | NUR ---
ADMITTED PATIENT FROM ER WITH TRACH TO [facility], [facility]. NO S/S OF RESPIRATORY DISTRESS. DX: ANEMIA. HX: ACUTE RESPIRATORY FAILURE, BRAIN INJURY, HTN, COPD, GERD, DM. G-TUBE IN PLACE AND PATENT, DAVENPORT CATHETER IN PLACE DRAINING CLEAR YELLOW URINE. ALL SAFETY PRECAUTIONS ARE IN PLACE. PICC LINE ON THE RIGHT UPPER ARM. WILL CONTINUE TO MONITOR.
--- NOTE | 2021-07-20 22:45 | NUR ---
ASSISTED TICKET DISPENSER CHANGER, IN TRANSPORT OF PT, FROM ER-1 TO 124-B. VENTILATOR IS PLUGGED INTO RED OUTLET, ALL ALARMS AUDIBLE AND WORKING, PT IS TRACHED WITH A PORTEX 7, AIRWAY IS PATENT, AND CLEAR, PT IS IN NO DISTRESS, WILL CONTINUE TO MONITOR
[2021-07-21] VITALS (9 sets, daily range): BP systolic 136–153; BP diastolic 64–87
[2021-07-21] MEDS ORDERED: INSULIN LISPRO SLIDING SCALE 100 UNITS/ML VIAL SUBQ PRN (04:25)
[2021-07-21] MEDS ORDERED: DEXTROSE 50% 50 ML SYR IVP PRN (04:25)
--- NOTE | 2021-07-21 05:18 | NUR ---
TRANSFUSED 300 ML PRBC NO ADVERSED REACTION NOTED AT THIS TIME. NO SIGNS OF RESPIRATORY DISTRESS. V/S MONITORED AND RECORDED. WILL CONTINUE TO MONITOR PATIENT.
[2021-07-21] MEDS: NACL 0.9% 1,000 ML IV SCH ×2 (05:30→14:35)
[2021-07-21] MEDS: BLOOD GLUCOSE MONITORING 1 DEV DEV FS SCH ×4 (06:58→21:00)
--- NOTE | 2021-07-21 07:20 | NUR ---
RECEIVE REPORT FROM PSYCH SALES SPECIALIST NURSE FOR CONTINUITY OF CARE. PATIENT SLEEPING. PATIENT TRACH TO VENT. PATIENT SATING O2 99%. NO ACUTE DISTRESS NOTED. ALL SAFETY MEASURES IN PLACE. CALL LIGHT WITHIN REACH. WILL CONTINUE TO MONITOR.
--- NOTE | 2021-07-21 07:20 | NUR ---
ENDORSEMENT GIVEN TO AM NURSE FOR CONTINUITY OF CARE. PATIENT IS STABLE.
--- NOTE | 2021-07-21 08:45 | NUR ---
NOTIFY YOUNG FROM RADIOLOGY THAT RN AND RT WILL BE AVAILABLE AT [address] OF CHEST TRANSFER.
[2021-07-21] MEDS: PANTOPRAZOLE 40 MG TABEC PO SCH ×2 (08:54→21:37)
[2021-07-21] MEDS: MEROPENEM 1,000 MG in NACL 0.9% 100 ML IV SCH ×2 (08:54→21:37)
--- NOTE | 2021-07-21 09:00 | NUR ---
PATIENT AWAKE. PATIENT TRACH TO VENT. PATIENT SATING O2 99%. NO ACUTE DISTRESS NOTED. MEROPENEM RUNNING. PROTONIX HELD DUE TO PATIENT BEING NPO. ALL SAFETY MEASURES IN PLACE. CALL LIGHT WITHIN REACH. WILL CONTINUE TO MONITOR
--- NOTE | 2021-07-21 09:05 | NUR ---
PATIENT HAS BEEN SCREENED AND CATEGORIZED HIGH NUTRITION RISK. PATIENT WILL BE SEEN WITHIN 1-2 DAYS OF ADMISSION. 07/21/21-07/22/21 FNS CONSULT RECEIVED FOR WOUNDS/PRESSURE INJURIES AND FNS REFERRAL FOR TUBE FEEDING. MARIA ELENA LEMA RD
[2021-07-21] MEDS: ALBUTEROL SULFATE/IPRATROPIU 3 ML SOL IH SCH ×3 (09:41→20:10)
--- NOTE | 2021-07-21 10:40 | NUR ---
ON OR ABOUT THIS TIME PATIENT TRANSFERRED TO RADIOLOGY FOR CT SCAN OF CHEST Sylwia MEDINA RCP AND Donnie AUGUST RCP ATTENDING PATIENT REMOVED FORM VENTILATOR PLACED ON SUPPLEMENTAL OXYGEN VIA E-TANK AT 15 LPM TO AMBU BAG/HME/INLINE SUCTION CATHETER/TRACHEOSTOMY TUBE BAG DEPRESSION EVERY 6-8 SECONDS TOLERATED TRANSFER AND PROCEDURE WELL WITHOUT ADVERSE REACTIONS NOTED SATURATION 97%
--- NOTE | 2021-07-21 10:45 | NUR ---
PT TRANSPORTED TO GET CHEST CT.
--- NOTE | 2021-07-21 11:01 | NUR ---
PT RETURNED FROM CT SCAN.
--- NOTE | 2021-07-21 11:23 | NUR ---
RECEIVED TORB FROM DR. KEYS TO START TUBE FEEDING
--- NOTE | 2021-07-21 13:01 | NUR ---
PATIENT AWAKE. NO ACUTE DISTRESS NOTED AT THIS TIME. PATIENT O2 SETTING AT 100% TRACH TO VENT. CALL LIGHT WITHIN REACH. ALL SAFETY MEASURES IN PLACE. WILL CONTINUE TO MONITOR.
--- NOTE | 2021-07-21 13:28 | NUR ---
RESTING COMFORTABLY GOOD CHEST RISE DEEP TRACHEAL SUCTION FOR SMALLL SEMI THICK YELLOW SECRETIONS AIRWAY PATENT
--- NOTE | 2021-07-21 14:15 | NUR ---
07/21/21 RD INITIAL ASSESSMENT COMPLETED PLEASE REFER TO NUTRITION ASSESSMENT UNDER CARE ACTIVITY FOR ESTIMATED NUTRITIONAL NEEDS. 1. RECOMMEND VITAL 1.2 @ 40 ML/HR -THIS WILL PROVIDE 1152 KCAL/DAY AND 72 GM OF PROTEIN/DAY 2. RECOMMEND FREE WATER FLUSH OF [address] TO FOLLOW-UP 2-3 DAYS, HIGH RISK MARIA ELENA LEMA, RD
--- NOTE | 2021-07-21 15:06 | NUR ---
PATIENT AWAKE. NO ACUTE DISTRESS NOTED AT THIS TIME. PATIENT O2 SETTING AT 98% TRACH TO VENT. FEEDING STARTED. NO RESIDUALS NOTED. CALL LIGHT WITHIN REACH. ALL SAFETY MEASURES IN PLACE. WILL CONTINUE TO MONITOR.
[2021-07-21 15:21] LABS: BASOPHILS % (AUTO) 0.3 % (0.0-2.0); EOSINOPHILS # (AUTO) 0.4 K/uL (0-0.4); HEMATOCRIT 24.1 % (36-48); HEMOGLOBIN 7.9 g/dL (12.0-16.0); LYMPHOCYTES # (AUTO) 3.4 K/uL (2.5-16.5); LYMPHOCYTES % (AUTO) 30.5 % (20.5-51.1); MEAN CORPUSCULAR HEMOGLOBIN 31 pg (27-31); MEAN CORPUSCULAR HGB CONC 33 g/dL (33-37); MEAN CORPUSCULAR VOLUME 93.7 fL (80-94); MONOCYTES # (AUTO) 0.6 K/uL (0.8-1.0); MONOCYTES % (AUTO) 5.5 % (1.7-9.3); NEUTROPHILS # (AUTO) 6.6 K/uL (1.8-7.7); NEUTROPHILS % (AUTO) 59.7 % (42.2-75.2); PLATELET COUNT (AUTO) 221 K/uL (140-450); RED BLOOD CELL COUNT(AUTO) 2.57 MIL/uL (4.20-5.40); RED CELL DISTRIBUTION WIDTH 16.2 % (11.6-13.7)
--- NOTE | 2021-07-21 15:33 | NUR ---
STABLE EQUAL CHEST RISE DEEP TRACHEAL SUCTION FOR LARGE THIN YELLOW SECRETIONS AIRWAY PATENT
[2021-07-21 15:37] LABS: ANION GAP 12.1 (8-16); CARBON DIOXIDE 26.3 mmol/L (21-32); CHLORIDE 113 mmol/L (98-107); CREATININE 0.7 mg/dL (0.6-1.3); GLUCOSE 78 mg/dL (74-106); POTASSIUM 3.4 mmol/L (3.5-5.1); SODIUM SERUM 148 mmol/L (136-145); UREA NITROGEN, BLOOD 14 mg/dL (7-18)
--- NOTE | 2021-07-21 17:54 | NUR ---
STABLE GOOD CHEST RISE DEEP TRACHEAL SUCTION FOR LARGE THIN YELLOW SECRETIONS AIRWAY PATENT
--- NOTE | 2021-07-21 19:20 | NUR ---
ENDORSED TO FORK REPAIRER NURSE FOR CONTINUITY OF CARE. PATIENT STABLE.
[2021-07-22] VITALS: BP 150/76
--- NOTE | 2021-07-22 00:47 | NUR ---
patient is not alert with mouth open and eyes has a trach to vent rate 16, pressure control 30, fi02 24%, peep 5. sat 100% on monitor sinus. temp 97.3 b/p 153/78. suction moderate secretion lungs diminish abdomen soft has g-tube no residuals when checked. vitals infusing at 40 hr has right upper arm picc line infusing ns 60 hour. has f/c draining yellow urine. has wound on right hand. other parts of body skin intact. blood sugar 2100 108 no insulin given.
[2021-07-22 04:00] VITALS: BP 148/72
[2021-07-22 05:47] LABS: BASOPHILS % (AUTO) 0.2 % (0.0-2.0); EOSINOPHILS # (AUTO) 0.5 K/uL (0-0.4); EOSINOPHILS % (AUTO) 6.9 % (0.0-4.0); HEMATOCRIT 26.5 % (36-48); LYMPHOCYTES # (AUTO) 2.2 K/uL (2.5-16.5); LYMPHOCYTES % (AUTO) 28.6 % (20.5-51.1); MEAN CORPUSCULAR HEMOGLOBIN 31 pg (27-31); MEAN CORPUSCULAR HGB CONC 33 g/dL (33-37); MEAN CORPUSCULAR VOLUME 93.8 fL (80-94); MONOCYTES # (AUTO) 0.5 K/uL (0.8-1.0); MONOCYTES % (AUTO) 6.4 % (1.7-9.3); NEUTROPHILS # (AUTO) 4.5 K/uL (1.8-7.7); NEUTROPHILS % (AUTO) 57.9 % (42.2-75.2); PLATELET COUNT (AUTO) 276 K/uL (140-450); RED BLOOD CELL COUNT(AUTO) 2.82 MIL/uL (4.20-5.40); RED CELL DISTRIBUTION WIDTH 16.1 % (11.6-13.7); WHITE BLOOD COUNT (AUTO) 7.8 K/uL (4.8-10.8)
[2021-07-22 05:56] LABS: ANION GAP 11.3 (8-16); CARBON DIOXIDE 27.4 mmol/L (21-32); CHLORIDE 112 mmol/L (98-107); CREATININE 0.8 mg/dL (0.6-1.3); GLUCOSE 104 mg/dL (74-106); POTASSIUM 3.7 mmol/L (3.5-5.1); SODIUM SERUM 147 mmol/L (136-145); UREA NITROGEN, BLOOD 14 mg/dL (7-18)
[2021-07-22 06:11] LABS: HEMOGLOBIN 8.7 g/dL (12.0-16.0)
[2021-07-22] MEDS: BLOOD GLUCOSE MONITORING 1 DEV DEV FS SCH ×4 (06:37→21:00)
--- NOTE | 2021-07-22 07:20 | NUR ---
RECEIVED REPORT FROM INTERNSHIP NURSE. PT STABLE. RESTING IN BED, EYES CLOSED. NO S/S OF DISTRESS. BREATHING SYMMETRICAL. CALL LIGHT IN REACH. ALL SAFETY MEASURES IN PLACE.
[2021-07-22] MEDS: ALBUTEROL SULFATE/IPRATROPIU 3 ML SOL IH SCH ×3 (07:24→19:26)
--- NOTE | 2021-07-22 07:29 | NUR ---
BEDSIDE RECEIVED FROM CEMENT TRUCK DRIVER RN . PT RESTING IN BED IN FOWLERS POSITION. EYES CLOSED BREATHING UNLABORED AND SYMMETRICAL. FLACC (0). ALL LIGHT IS WITHIN REACH ALL SAFETY MEASURES ARE IN PLACE
--- NOTE | 2021-07-22 07:30 | NUR ---
BEDSIDE RECEIVED FROM GENERAL LOT ATTENDANT RN . PT RESTING IN BED DANGLING , BREATHING UNLABORED AND SYMMETRICAL . PT ABLE TO MAKE NEEDS KNOWN , PT ORIENTED TO ROOM AND CALL LIGHT CONTROLS, PT EDUCATED TO CALL BEFORE GETTING OUT OS BED OR FOR ASSISTANCE , NON SLIP SOCKS PROVIDED. CALL LIGHT IS WITHIN REACH ALL SAFETY MEASURES ARE IN PLACE. Addendum: 07/22/21 at 0809 by Zoë Davila RN RN WRONG PT
[2021-07-22] MEDS: NACL 0.9% 1,000 ML IV SCH ×2 (07:51→23:55)
[2021-07-22 08:00] VITALS: BP 133/62
[2021-07-22] MEDS: PANTOPRAZOLE 40 MG TABEC PO SCH ×3 (08:25→21:58)
[2021-07-22] MEDS: MEROPENEM 1,000 MG in NACL 0.9% 100 ML IV SCH ×2 (08:25→21:58)
[2021-07-22] MEDS ORDERED: CRUSHER, PILL MC ONE (08:32)
--- NOTE | 2021-07-22 09:51 | NUR ---
PT DESATURATING 70-80S. RT CALLED. PT SUCTIONED AND REPOSITIONED. PT SATURATION AT 96%. CALL LIGHT IN REACH. ALL SAFETY MEASURES IN PLACE.
--- NOTE | 2021-07-22 10:30 | NUR ---
PT BED BATH COMPLETE, 2 ASSIST MAXIMUM ASSISTANCE NEEDED. pT TOLERATED WELL . NO S/SX OF DIERESES AT THIS TIME. CALL LIGHT WITHIN REACH ALL SAFETY MEASURES ARE IN PLACE
--- NOTE | 2021-07-22 11:11 | NUR ---
SPOKE TO MD REGARDING PICC LINE PATENCY. ORDER FOR CATHFLO RECEIVED AND ENTERED. WILL PROCEED PER MD ORDERS.
--- NOTE | 2021-07-22 11:32 | NUR ---
BG ASSESSED PER MD ORDER. PT BG 118 . PT RESTING IN BED COMFORTABLY BREATHING IS SYMMETRICAL AND UNLABORED. FLACC (0). ALL SAFETY MEASURES ARE IN PLACE
--- NOTE | 2021-07-22 11:32 | NUR ---
SPOKE WITH DR. LUIS ABOUT PT NEEDING TO BE ON VC TO BE DISCHARGED BACK TO [facility]. PT NOT TOLERATING SWITCH TO VC. SAID IT WAS OK TO PUT PT ON PRVC TO TRY AND WEAN PT TO VC. PLACED PT ON PRVC 16, 350, +5, 24%. PT TOLERATING WELL. WILL CONTINUE TO MONITOR.
[2021-07-22 12:00] VITALS: BP 107/50
[2021-07-22] MEDS ORDERED: ALTEPLASE 2 MG VIAL MC SCH (12:00)
--- NOTE | 2021-07-22 12:50 | NUR ---
BEGAN ALTEPASE TREATMENT PER MD ORDER. WILL ASSESS IN 30 MIN PER MEDICATION INSTRUCTION. CALL LIGHT IN REACH. ALL SAFETY MEASURES IN PLACE.
--- NOTE | 2021-07-22 13:52 | NUR ---
PT BECAME TACHYPNEIC WITH INCREASED PEAK PRESSURE WHILE ON PRVC. PLACED PT BACK ON PC ON PREVIOUSLY DOCUMENTED SETTINGS. WILL CONTINUE TO MONITOR.
--- NOTE | 2021-07-22 14:26 | NUR ---
WOUND CARE EVALUATION NOTE: PT. ADMITTED WITH LOW CHIKIS SCALE AT RISK, +1 EDEMA TO ALL EXTREMITIES WITH SEVERE CONTRACTURES,STIFFNESS TO NECK. RIGHT HAND SKIN TEARS ASSESSED, POC DISCUSSED WITH PRIMARY RN. -ORAL MEMBRANE PINK INTACT, LIPS, CHEEKS SKIN MOIST, NO OPEN WOUNDS -TRACH SITE LEBRON STOMA SKIN DRY AND CLEAN. SKIN INTACT. -GT SITE LEBRON STOMA WITH SKIN INTACT. -RIGHT DORSAL HAND SKIN TEAR 2.3CM X 3.3CM SUPERFICIAL DEPTH WITH LEBRON WOUND BLISTERING THIN SKIN TO FINGERS, EASILY TO TORN. -BLANCHABLE REDNESS TO BILATERAL HEELS RECOMMENDATIONS: -CLEANSE RIGHT HAND SKIN TEAR AND BLISTERING SKIN WITH NS, PAT DRY, APPLY VERSATEL DRESSING AND COVER WITH DRY DRESSING, WRAP WITH KERLIX ROLL QD AND PRN IF SOILING -APPLY FORM DRESSING TO SACROCOCCYX AND RIGHT AND LEFT KNEES,HEELS Q7 DAYS AND PRN IF SOILING PREVENTION -APPLY HEEL PROTECTORS TO BOTH HEELS AT ALL TIMES -OFFLOAD BILATERAL HEELS BY PLACING PILLOWS UNDER CALVES UNLESS OTHERWISE CONTRAINDICATED -PRESSURE REDISTRIBUTION SURFACE THERAPY -TURN AND REPOSITION Q2H, OFFLOAD SACRALCOCCYX AND BUTTOCKS BY TURNING RIGHT AND LEFT -CONTINUE TO FOLLOW RD RECOMMENDATIONS
--- NOTE | 2021-07-22 15:54 | NUR ---
PATIENT ROUNDED ON. PT IS RESTING IN BED. BREATHING IS SYMMETRICAL AND UNLABORED. FLACC (0) . CALL LIGHT IS WITHIN REACH ALL SAFETY MEASURES ARE IN PLACE. 02% 97%
[2021-07-22 16:00] VITALS: BP 147/76
--- NOTE | 2021-07-22 17:52 | NUR ---
ROUNDED ON PT. RT SUCTIONED PT. PT STABLE. BREATHING SYMMETRICAL. NO S/S OF DISTRESS. CALL LIGHT IN REACH. ALL SAFETY MEASURES IN PLACE.
--- NOTE | 2021-07-22 18:57 | NUR ---
PT RESTING IN BED. O2% 96% . PT KEPT CLEAN AND DRY , FLACC (0). WILL ENDORSE TO CORE WINDING OPERATOR NURSE FOR CONTINUITY OF CARE
--- NOTE | 2021-07-22 19:30 | NUR ---
RECEIVED REPORT FROM VINEET SHERIDAN FOR CONTINUITY OF CARE. PT SITTING UP NONVERBAL, AROUSABLE TO VERBAL/TACTILE STIMULI. R UA PICC INTACT/PATENT WITH NS@60ML/HR. G-TUBE INTACT/PATENT WITH VITAL AF 1.2@40ML/HR. DAVENPORT CATH INTACT/PATENT WITH PALE YELLOW URINE DRAINING TO GRAVITY. POC AND WHITE COMMUNICATION BOARD UPDATED. BED IN LOW/LOCKED POSITION. CALL LIGHT WITHIN REACH. PT ENCOURAGED TO CALL FOR ANY NEEDS/ASSISTANCE. WILL CONTINUE TO MONITOR.
--- NOTE | 2021-07-22 19:44 | NUR ---
PATIENT ENDORSED TO FLIGHT AGENT NURSE. PT STABLE. RT AT BEDSIDE WITH PT. NO S/S OF DISTRESS. CALL LIGHT IN REACH. ALL SAFETY MEASURES IN PLACE.
[2021-07-22 20:00] VITALS: BP 118/66
[2021-07-23] VITALS: BP 136/68
[2021-07-23 04:00] VITALS: BP 143/75
[2021-07-23 06:08] LABS: ANION GAP 10.4 (8-16); CARBON DIOXIDE 28.2 mmol/L (21-32); CHLORIDE 112 mmol/L (98-107); CREATININE 0.8 mg/dL (0.6-1.3); GLUCOSE 92 mg/dL (74-106); POTASSIUM 3.6 mmol/L (3.5-5.1); SODIUM SERUM 147 mmol/L (136-145); UREA NITROGEN, BLOOD 15 mg/dL (7-18)
[2021-07-23 06:24] LABS: BASOPHILS % (AUTO) 0.5 % (0.0-2.0); EOSINOPHILS # (AUTO) 0.5 K/uL (0-0.4); EOSINOPHILS % (AUTO) 4.8 % (0.0-4.0); HEMATOCRIT 25.8 % (36-48); HEMOGLOBIN 8.6 g/dL (12.0-16.0); LYMPHOCYTES # (AUTO) 2.6 K/uL (2.5-16.5); LYMPHOCYTES % (AUTO) 27.2 % (20.5-51.1); MEAN CORPUSCULAR HEMOGLOBIN 31 pg (27-31); MEAN CORPUSCULAR HGB CONC 33 g/dL (33-37); MEAN CORPUSCULAR VOLUME 92.8 fL (80-94); MONOCYTES # (AUTO) 0.7 K/uL (0.8-1.0); MONOCYTES % (AUTO) 6.7 % (1.7-9.3); NEUTROPHILS # (AUTO) 5.9 K/uL (1.8-7.7); NEUTROPHILS % (AUTO) 60.8 % (42.2-75.2); PLATELET COUNT (AUTO) 276 K/uL (140-450); RED BLOOD CELL COUNT(AUTO) 2.78 MIL/uL (4.20-5.40); RED CELL DISTRIBUTION WIDTH 16.5 % (11.6-13.7); WHITE BLOOD COUNT (AUTO) 9.7 K/uL (4.8-10.8)
[2021-07-23] MEDS: BLOOD GLUCOSE MONITORING 1 DEV DEV FS SCH ×4 (06:39→20:13)
--- NOTE | 2021-07-23 07:02 | NUR ---
REPORT GIVEN TO LAI RN FOR CONTINUITY OF CARE. NO APPARENT S/S OF ACUTE DISTRESS. BREATHING EVEN AND UNLABORED. BED IN LOW/LOCKED POSITION. CALL LIGHT WITHIN REACH. ALL NEEDS MET AT THIS TIME.
--- NOTE | 2021-07-23 07:03 | NUR ---
RECEIVED PATIENT FROM DRYWALL WORKER NURSE FOR CONTINUITY OF CARE. PATIENT IS APHASIC, TRACH TO VENT, VENT SETTING AC PC, FIO2 24%, PEEP 5, RATE 32, O2 SAT 93%, RESPIRATORY EVEN AND UNLABORED, NO SIGN OF DISTRESS NOTED. SKIN WARM, DRY, NON DIAPHORETIC, RIGHT HAND BLISTER WITH DRESSING INTACT. RIGHT UPPER ARM PICC LINE DOUBLE LUMENS, INTACT AND PATENT, IS INFUSING FLUID ORDER. G-TUBE IN PLACE, FEEDING WITH VITAL AF AT 40ML/HR, FREE WATER FLUSH 95ML Q6H. PATIENT TOLERATED WELL, RESIDUAL 10ML. DAVEN[place] IN PLACE, CLEAR YELLOW URINE NOTED. PLAN OF CARE DISCUSSED. PRECAUTION IN PLACE. CALL LIGHT WITHIN REACH. WILL CONTINUE TO MONITOR.
[2021-07-23] MEDS: ALBUTEROL SULFATE/IPRATROPIU 3 ML SOL IH SCH ×3 (07:55→20:13)
[2021-07-23 08:00] VITALS: BP 133/85
[2021-07-23] MEDS: PANTOPRAZOLE 40 MG TABEC PO SCH (08:30)
[2021-07-23] MEDS: MEROPENEM 1,000 MG in NACL 0.9% 100 ML IV SCH ×2 (08:31→20:13)
--- NOTE | 2021-07-23 08:31 | NUR ---
SCHEDULE MEDICATIONS GIVEN WITH EDUCATION. PATIENT TOLERATED WELL. HOLD PROTONIX PO DUE TO PATIENT UNABLE TO SWALLOW. WILL CONTACT WITH MD TO CHANGE THE FORM OF MEDICATION. PRECAUTION IN PLACE. CALL LIGHT WITHIN REACH. WILL CONTINUE TO MONITOR.
--- NOTE | 2021-07-23 11:59 | NUR ---
BLOOD SUGAR CHECK 90. NO INSULIN GIVEN TO COVER. PATIENT HAS NO SIGN OF DISTRESS NOTED. PRECAUTION IN PLACE. CALL LIGHT WITHIN REACH. WILL CONTINUE TO MONITOR.
[2021-07-23 12:00] VITALS: BP 151/68
--- NOTE | 2021-07-23 12:00 | NUR ---
PATIENT ON MECHANICAL VENTILATION WITH CHARTED SETTINGS. PATIENT HAS PORTEX [address] IS IN PL[address] AND SECURED. NO SOB OR DISTRESS NOTED. SUCTIONED PATIENT. TRACH IS IN PLACE AND SECURED WITH TRACH TIE. VENT CONNECTED TO RED OUTLET. ALARMS AUDIBLE. AMBU BAG AT BEDSIDE.PT'S SPO2 89%, INCREASED FIO2 TO 30%. SPO2 NOW 94. RN JOELLE AWARE. WILL CONTINUE TO MONITOR PATIENT.
[2021-07-23] MEDS: MORPHINE SULFATE 2 MG/ML SYR IVP PRN (12:02)
--- NOTE | 2021-07-23 13:02 | NUR ---
PAIN REASSESSMENT. PATIENT IS SLEEPING, NO SIGN OF DISTRESS NOTED. PRECAUTION IN PLACE. CALL LIGHT WITHIN REACH. WILL CONTINUE TO MONITOR.
--- NOTE | 2021-07-23 14:30 | NUR ---
PATIENT IS SLEEPING, CHEST RISE AND FALL NOTED, NO SIGN OF DISTRESS NOTED, O2 SAT 99%, RR 17. PRECAUTION IN PLACE. CALL LIGHT WITHIN REACH. WILL CONTINUE TO MONITOR.
[2021-07-23 16:00] VITALS: BP 151/68
--- NOTE | 2021-07-23 16:05 | NUR ---
BLOOD SUGAR CHECK 79, NO INSULIN NEED TO COVER. NO SIGN OF DISTRESS NOTED. O2 SAT 99%, RR 16. PRECAUTION IN PLACE. CALL LIGHT WITHIN REACH. WILL CONTINUE TO MONITOR.
[2021-07-23] MEDS: NACL 0.9% 1,000 ML IV SCH (18:51)
--- NOTE | 2021-07-23 19:20 | NUR ---
ENDORSED PATIENT TO COMMUNITY ASSISTANT NURSE FOR CONTINUITY OF CARE. PATIENT IS STABLE.
--- NOTE | 2021-07-23 19:21 | NUR ---
RECEIVED PATIENT FROM DAY RN FOR CONTINUITY OF CARE. PATIENT IS APHASIC, TRACH TO VENT, VENT SETTING AC PC, FIO2 30%, PEEP 5, RATE 16, PT TOLERATING WELL RR 23 O2 SAT 96%, RESPIRATORY EVEN AND UNLABORED, NO SIGN OF DISTRESS NOTED. SKIN WARM, DRY, NON DIAPHORETIC, RIGHT HAND BLISTER WITH VERSATEL INTACT. RIGHT UPPER ARM PICC LINE DOUBLE LUMENS, INTACT AND PATENT, IS INFUSING FLUID ORDER. G-TUBE IN PLACE, FEEDING WITH VITAL AF AT 40ML/HR, FREE WATER FLUSH 95ML Q6H. DAVENPORT IN PLACE, CLEAR YELLOW URINE NOTED. PLAN OF CARE DISCUSSED. PRECAUTION IN PLACE. CALL LIGHT WITHIN REACH. WILL CONTINUE TO MONITOR.
[2021-07-23 20:00] VITALS: BP 101/40
[2021-07-23] MEDS: BUDESONIDE 0.5 MG/2 ML NEBU INH SCH (20:13)
[2021-07-23] MEDS: PANTOPRAZOLE 40 MG INJ VIAL IVP SCH (20:13)
--- NOTE | 2021-07-23 20:13 | NUR ---
VITAL SIGNS ARE WITHIN NORMAL LIMITS. BLOOD SUGAR 89 NO COVERAGE NEEDED. PATIENT TOLERATING FEEDING WELL GASTRIC RESIDUAL 40CC. OLVIN MEDICATIONS GIVEN PER ORDERS. WILL CONTINUE TO MONITOR.
--- NOTE | 2021-07-23 22:23 | NUR ---
ROUNDS MADE. PATIENT OBSERVED RESTING IN BED SAT WELL ON CURRENT VENT SETTING. NO S/SX OF DISTRESS. SAFETY MEASURES ARE IN PLACE.
[2021-07-24] VITALS: BP 115/57
--- NOTE | 2021-07-24 00:21 | NUR ---
VITAL SIGNS ARE WITHIN NORMAL LIMITS. ORAL CARE PROVIDED. SAFETY MEASURES ARE IN PLACE. WILL CONTINUE TO MONITOR.
--- NOTE | 2021-07-24 02:03 | NUR ---
PATIENT RESTING COMFORTABLY IN BED SAT WELL 97% ON CURRENT VENT SETTINGS OF FIO2 30%.
[2021-07-24 04:00] VITALS: BP 142/59
[2021-07-24] MEDS: MORPHINE SULFATE 2 MG/ML SYR IVP PRN ×2 (05:10→21:40)
--- NOTE | 2021-07-24 05:10 | NUR ---
ADMIN PRN MORPHINE D/T VS CHANGE RR 28-30 AND FLACC OF 5. PATIENT IS APHASIC UNABLE TO COMMUNICATE IF HAVING PAIN. WILL CONTINUE TO MONITOR.
--- NOTE | 2021-07-24 05:37 | NUR ---
PATIENT WAS REASSESSED PT APPEARS TO BE ASLEEP RR 17-20 SAT WELL 98%. NO S/SX OF DISTRESS. NEW FEEDING BAG STARTED PER ORDERS. SAFETY MEASURES ARE IN PLACE. WILL CONTINUE TO MONITOR.
[2021-07-24 06:51] LABS: BASOPHILS % (AUTO) 0.3 % (0.0-2.0); EOSINOPHILS # (AUTO) 0.3 K/uL (0-0.4); EOSINOPHILS % (AUTO) 3.8 % (0.0-4.0); HEMATOCRIT 26.2 % (36-48); HEMOGLOBIN 8.6 g/dL (12.0-16.0); LYMPHOCYTES % (AUTO) 34.9 % (20.5-51.1); MEAN CORPUSCULAR HEMOGLOBIN 31 pg (27-31); MEAN CORPUSCULAR HGB CONC 33 g/dL (33-37); MEAN CORPUSCULAR VOLUME 94.6 fL (80-94); MONOCYTES # (AUTO) 0.5 K/uL (0.8-1.0); NEUTROPHILS # (AUTO) 4.8 K/uL (1.8-7.7); PLATELET COUNT (AUTO) 303 K/uL (140-450); RED BLOOD CELL COUNT(AUTO) 2.77 MIL/uL (4.20-5.40); RED CELL DISTRIBUTION WIDTH 16.3 % (11.6-13.7); WHITE BLOOD COUNT (AUTO) 8.7 K/uL (4.8-10.8)
--- NOTE | 2021-07-24 07:10 | NUR ---
GAVE BEDSIDE REPORT TO DAY RN. PT ENDORSED IN STABLE CONDITION.
[2021-07-24 07:11] LABS: ANION GAP 10.3 (8-16); CARBON DIOXIDE 28.2 mmol/L (21-32); CHLORIDE 112 mmol/L (98-107); CREATININE 0.8 mg/dL (0.6-1.3); GLUCOSE 85 mg/dL (74-106); POTASSIUM 3.5 mmol/L (3.5-5.1); SODIUM SERUM 147 mmol/L (136-145); UREA NITROGEN, BLOOD 15 mg/dL (7-18)
--- NOTE | 2021-07-24 07:11 | NUR ---
RECEIVED PATIENT FROM MANDATE RETAIL SERVICE MERCHANDISER NURSE FOR CONTINUITY OF CARE. PATIENT IS APHASIC. RESPIRATORY EVEN AND UNLABORED, ON TRACH TO VENT, VENT SETTING FIO2 30%, PEEP 5, RATE 16, O2 SAT 97%. NO SIGN OF DISTRESS NOTED. SKIN WARM, DRY, NON DIAPHORETIC. BLISTER NOTED ON RIGHT HAND, DRESSING CLEAN AND INTACT. G-TUBE IN PLACE, FEEDING VITAL AF @40ML/HR, WATER FLUSH 95ML Q6H. DAVENPORT IN PLACE, CLEAR YELLOW URINE OUTPUT. PLAN OF CARE DISCUSSED. PRECAUTION IN PLACE. CALL LIGHT WITHIN REACH. WILL CONTINUE TO MONITOR.
[2021-07-24] MEDS: BLOOD GLUCOSE MONITORING 1 DEV DEV FS SCH ×4 (07:29→21:00)
[2021-07-24] MEDS: ALBUTEROL SULFATE/IPRATROPIU 3 ML SOL IH SCH ×3 (07:48→20:38)
[2021-07-24 08:00] VITALS: BP 147/65
[2021-07-24] MEDS: BUDESONIDE 0.5 MG/2 ML NEBU INH SCH ×2 (08:11→20:38)
[2021-07-24] MEDS: PANTOPRAZOLE 40 MG INJ VIAL IVP SCH ×2 (09:02→21:00)
[2021-07-24] MEDS: MEROPENEM 1,000 MG in NACL 0.9% 100 ML IV SCH ×2 (09:03→21:00)
--- NOTE | 2021-07-24 09:03 | NUR ---
SCHEDULE MEDICATION GIVEN WITH EDUCATION. PATIENT TOLERATED WELL, NO SIGN OF DISTRESS NOTED. PRECAUTION IN PLACE. CALL LIGHT WITHIN REACH. WILL CONTINUE TO MONITOR.
--- NOTE | 2021-07-24 11:25 | NUR ---
BLOOD SUGAR CHECK 89, NO INSULIN COVER, PATIENT IS NO SIGN OF DISTRESS NOTED. PRECAUTION IN PLACE. CALL LIGHT WITHIN REACH. WILL CONTINUE TO MONITOR.
[2021-07-24 12:00] VITALS: BP 138/77
[2021-07-24] MEDS: NACL 0.9% 1,000 ML IV SCH (13:00)
--- NOTE | 2021-07-24 13:00 | NUR ---
ROUND CHECK. PATIENT IS SLEEPING, CHEST RISE AND FALL, NO SIGN OF DISTRESS NOTED. PRECAUTION IN PLACE. CALL LIGHT WITHIN REACH. WILL CONTINUE TO MONITOR.
--- NOTE | 2021-07-24 14:00 | NUR ---
ROUND CHECK. PATIENT IS RESTING IN BED, FAMILY AT BEDSIDE. NO SIGN OF DISTRESS NOTED. PRECAUTION IN PLACE. CALL LIGHT WITHIN REACH. WILL CONTINUE TO MONITOR. Addendum: 07/24/21 at [address] RN RN NO FAMILY AT BEDSIDE.
--- NOTE | 2021-07-24 15:17 | NUR ---
07/24/21 RD FOLLOW UP COMPLETED PLEASE REFER TO NUTRITION ASSESSMENT UNDER CARE ACTIVITY FOR ESTIMATED NUTRITIONAL NEEDS. 1. CONTINUE VITAL 1.2 @ 40 ML/HR -THIS WILL PROVIDE 1152 KCAL/DAY AND 72 GM OF PROTEIN/DAY 2. CONTINUE FREE WATER FLUSH OF [address] TO FOLLOW-UP 2-3 DAYS, HIGH RISK MARIA ELENA LEMA, RD
[2021-07-24 16:00] VITALS: BP 152/53
--- NOTE | 2021-07-24 16:00 | NUR ---
CHANGE AND REPOSITION PATIENT, PATIENT TOLERATED WELL. NO SIGN OF DISTRESS NOTED. PRECAUTION IN PLACE. CALL LIGHT WITHIN REACH. WILL CONTINUE TO MONITOR.
--- NOTE | 2021-07-24 17:09 | NUR ---
BLOOD SUGAR CHECK 83, NO INSULIN NEED TO COVER. GIVE 2 BOTTLE OF APPLE JUICE THROUGH G-TUBE. PATIENT TOLERATED WELL. NO SIGN OF DISTRESS NOTED. PRECAUTION IN PLACE. CALL LIGHT WITHIN REACH. WILL CONTINUE TO MONITOR.
--- NOTE | 2021-07-24 18:40 | NUR ---
ROUND CHECK. PATIENT IS AWAKE, RESTING IN BED, NO SIGN OF DISTRESS NOTED, O2 SAT 99%. PRECAUTION IN PLACE. CALL LIGHT WITHIN REACH. WILL CONTINUE TO MONITOR.
--- NOTE | 2021-07-24 19:35 | NUR ---
ENDORSED PATIENT TO PHYSICAL DESIGN ENGINEER NURSE FOR CONTINUITY OF CARE. PATIENT IS STABLE.
[2021-07-24 20:00] VITALS: BP 117/53
--- NOTE | 2021-07-24 20:51 | NUR ---
PT RECIEVED ON PC 30 +5 f16 FIO2 30% W/ SECURED PATENT PORTEX 7 TRACH VENT IS PLUGGED INTO RED OUTLET W/ ALARMS ON AND AUDIBLE PT WAS IRRITABLE AND FIO2 TITRATED UP TO 55% WILL TITRATE TOLERATED AMBU IS AT BEDSIDE
--- NOTE | 2021-07-24 22:24 | NUR ---
PT RESTING COMFORTABLY AT THIS TIME (SPO2 99%) FIO2 TITRATED TO 45% W/ SPO2 99% 5 MIN POST TITRATION WILL CONTINUE TO MONITOR AND TITRATE TOLERATED
[2021-07-25] VITALS (8 sets, daily range): BP systolic 105–152; BP diastolic 64–96
--- NOTE | 2021-07-25 00:13 | NUR ---
PATIENT AWAKE NOT ALERT HAS TRACH TO VENT RATE 16 PRESSURE CON TROLL 30 FI02 40% PEEP5. SAT 97%. PATIENT ON MONITOR SINUS TEMP 99.8. LUNGS DIMINISH PATIENT HAS PICC LINE UPPER RIGHT INFUSING NS 60 HOUR. PATIENT HAS GT RECEIVING VITALS AT 40 HOUR. NO RESIDUAL RECEIVING H20 95 HOUR. PATIENT HAS F/C DRAINING YELLOW URINE. PATIENT GIVEN MORPHINE 1 MG AT 2140 DUE TO PATIENT RESTLESS SAT WAS IN 70S RT WENT FROM 30% TO 40% DUE TO SAT 70% WENT UP TO 98 % AFTER FI02 INCREASE TO 40%.BLOOD SUGAR 137 NO COVERGE.
--- NOTE | 2021-07-25 00:47 | NUR ---
FIO2 TITRATED TO 35% W/ SPO2 98% 10 MIN POST TITRATION WILL CONTINUE TO MONITOR
--- NOTE | 2021-07-25 02:50 | NUR ---
FIO2 TITRATED TO 28% PT TOLERATING WELL AT THIS TIME W/ SPO2 94% 10 MIN POST TITRATION
--- NOTE | 2021-07-25 05:45 | NUR ---
blood sugar this a.m 100 no insulin needed.
[2021-07-25 06:15] LABS: BASOPHILS % (AUTO) 0.6 % (0.0-2.0); EOSINOPHILS # (AUTO) 0.2 K/uL (0-0.4); EOSINOPHILS % (AUTO) 2.6 % (0.0-4.0); HEMATOCRIT 24.8 % (36-48); HEMOGLOBIN 8.2 g/dL (12.0-16.0); LYMPHOCYTES # (AUTO) 2.9 K/uL (2.5-16.5); LYMPHOCYTES % (AUTO) 32.9 % (20.5-51.1); MEAN CORPUSCULAR HEMOGLOBIN 31 pg (27-31); MEAN CORPUSCULAR HGB CONC 33 g/dL (33-37); MEAN CORPUSCULAR VOLUME 93.9 fL (80-94); MONOCYTES # (AUTO) 0.5 K/uL (0.8-1.0); MONOCYTES % (AUTO) 5.5 % (1.7-9.3); NEUTROPHILS # (AUTO) 5.1 K/uL (1.8-7.7); NEUTROPHILS % (AUTO) 58.4 % (42.2-75.2); PLATELET COUNT (AUTO) 270 K/uL (140-450); RED BLOOD CELL COUNT(AUTO) 2.64 MIL/uL (4.20-5.40); WHITE BLOOD COUNT (AUTO) 8.7 K/uL (4.8-10.8)
[2021-07-25 06:36] LABS: ANION GAP 10.6 (8-16); CARBON DIOXIDE 27.2 mmol/L (21-32); CHLORIDE 113 mmol/L (98-107); CREATININE 0.9 mg/dL (0.6-1.3); GLUCOSE 107 mg/dL (74-106); POTASSIUM 3.8 mmol/L (3.5-5.1); SODIUM SERUM 147 mmol/L (136-145); UREA NITROGEN, BLOOD 21 mg/dL (7-18)
[2021-07-25] MEDS: MORPHINE SULFATE 2 MG/ML SYR IVP PRN (06:57)
[2021-07-25] MEDS: ALBUTEROL SULFATE/IPRATROPIU 3 ML SOL IH SCH ×2 (07:52→13:42)
[2021-07-25] MEDS: BUDESONIDE 0.5 MG/2 ML NEBU INH SCH (07:52)
--- NOTE | 2021-07-25 07:52 | NUR ---
RECEIVED ON A PolleverywhereSCAPE R860 VENTILATOR PLUGGED INTO RED OUTLET TOLERATING WELL WITHOUT COMPLICATIONS NOTED TO A PORTEX DCT #7 AIRWAY SECURED WITH A DANITA TRACH TIE CUFF PRESSURE CHECKED NOTED AMBU BAG NOTED AT BEDSIDE RESTING WELL GOOD CHEST RISE DEEP TRACHEAL SUCTION FOR LARGE FROTHY FIERRO SECRETIONS AIRWAY PATENT
--- NOTE | 2021-07-25 08:15 | NUR ---
RECEIVED REPORT FROM NIGHT NURSE, PT IS TRACH TO VENT PT, FIO2 28 PRESSURE SUPPORT 30 RATE 16. NO VISIBLE SOB NOTED, NO S/S OF PAIN NOTED. ON G TUBE FEEDING VITAL 1.2 40 ML/HR WATER FLUSH 95 Q 6 HOURS. SKIN TEAR ON RIGHT HAND. POC DISCUSSED WILL CONTINUE TO FOLLOW.
[2021-07-25] MEDS: PANTOPRAZOLE 40 MG INJ VIAL IVP SCH ×2 (09:13→21:00)
[2021-07-25] MEDS: MEROPENEM 1,000 MG in NACL 0.9% 100 ML IV SCH (09:14)
[2021-07-25] MEDS: NACL 0.9% 1,000 ML IV SCH ×2 (09:15→18:35)
--- NOTE | 2021-07-25 11:00 | NUR ---
PT IS SLEEPING IN THE BED, CHEST RISE AND FALL IS VISIBLE, NO S/S OF PAIN NOTED. BED IS IN LOWEST POSITION. ALL SAEFTY MEASURES ARE IN PLACED. WILL CONTINUE TO MONITOR PT
--- NOTE | 2021-07-25 11:34 | NUR ---
PATIENT PRESENTING WITH PEAK PRESSURES +[id number] EXPIRATORY Vt 463ml (IBW 400ml) WITH Pinsp AT [id number] DECREASED Pinsp TO [id number] PEAK PRESSURE NOW [id number] EXPIRATORY Vt +440ml INTENSIVE CARE UNIT REGISTERED NURSE TO MONITOR AND TITRATED Pinsp TOLERATED Addendum: 07/25/21 at 1522 by Matt Simons RT TITRATED = TITRATE
[2021-07-25] MEDS: BLOOD GLUCOSE MONITORING 1 DEV DEV FS SCH ×3 (11:48→21:00)
--- NOTE | 2021-07-25 13:08 | NUR ---
PT SODIUM LEVEL IS 147 NOTIFY
--- NOTE | 2021-07-25 13:42 | NUR ---
RESTING WELL TOLERATING VENTILATOR SUPPORT WELL WITHOUT COMPLICATIONS NOTED GOOD CHEST RISE DEEP TRACHEAL SUCTION FOR SMALL THIN PALE YELLOW SECRETIONS AIRWAY PATENT
--- NOTE | 2021-07-25 16:12 | NUR ---
BLOOD GLUCOSE 97 NO INSULIN COVERAGE NEEDED.
--- NOTE | 2021-07-25 17:35 | NUR ---
STABLE RESTING COMFORTABLE EQUAL CHEST RISE DEEP TRACHEAL SUCTION FOR MODERATE THIN PALE YELLOW SECRETIONS AIRWAY PATENT
--- NOTE | 2021-07-25 19:30 | NUR ---
ENDORSED NIGHT NURSE FOR CONTINUITY OF CARE PT IS STABLE.
[2021-07-26] VITALS (8 sets, daily range): BP systolic 97–175; BP diastolic 45–106
[2021-07-26] MEDS: NACL 0.9% 1,000 ML IV SCH (01:15)
--- NOTE | 2021-07-26 01:45 | NUR ---
PATIENT AWAKE NOT ALERT RESPONSIVE TO STIMULI ON MONITOR SINUS TRACH TO VENT SAT95% FI02 28% PEEP 5 RATE 16 PRESSURE CONTROL 26. WITH SMALL SECRETION WHEN SUCTION. HAS PICC LINE UPPER RIGHT ARM INFUSING NS 60 HOUR.LISTEN TO LUNGS DIMINISH. ON MONITOR SINUS TACH. TEMP 98.2 BLOOD SUGAR 2100 101 NO COVERAGE. F/C DRAINING LANRE URINE.PATIENT HAS GT RECEIVING VITAL AT 40 HOUR NO RESIDUAL GT FLUSH WITH WATER 95CC.
[2021-07-26 06:23] LABS: ANION GAP 9.8 (8-16); CHLORIDE 112 mmol/L (98-107); GLUCOSE 159 mg/dL (74-106); POTASSIUM 3.8 mmol/L (3.5-5.1); SODIUM SERUM 147 mmol/L (136-145); UREA NITROGEN, BLOOD 21 mg/dL (7-18)
[2021-07-26 06:31] LABS: BASOPHILS % (AUTO) 0.2 % (0.0-2.0); EOSINOPHILS # (AUTO) 0.5 K/uL (0-0.4); EOSINOPHILS % (AUTO) 2.7 % (0.0-4.0); HEMATOCRIT 31.5 % (36-48); HEMOGLOBIN 9.8 g/dL (12.0-16.0); LYMPHOCYTES # (AUTO) 8.6 K/uL (2.5-16.5); LYMPHOCYTES % (AUTO) 45.5 % (20.5-51.1); MEAN CORPUSCULAR HEMOGLOBIN 30 pg (27-31); MEAN CORPUSCULAR HGB CONC 31 g/dL (33-37); MEAN CORPUSCULAR VOLUME 95.9 fL (80-94); MONOCYTES # (AUTO) 0.7 K/uL (0.8-1.0); MONOCYTES % (AUTO) 3.9 % (1.7-9.3); NEUTROPHILS % (AUTO) 47.7 % (42.2-75.2); PLATELET COUNT (AUTO) 400 K/uL (140-450); RED BLOOD CELL COUNT(AUTO) 3.28 MIL/uL (4.20-5.40); RED CELL DISTRIBUTION WIDTH 16.4 % (11.6-13.7)
--- NOTE | 2021-07-26 07:27 | NUR ---
RECEIVED REPORT FROM NIGHT NURSE PT IS TRACH TO VENT, VENT SETTINGS: FIO 28, RATE 16 PEAP 5, PRESSURE SUPPORT 26. PT HAS DAV[place] CATHETER AND G TUBE. G TUBE FEEDING IS VITAL 40 ML/HR. NO RESIDUAL WITH THE NIGHT NURSE. HAS OPEN WOUND ON THE RIGHT HAND. POC DISCUSSED WILL CONTINUE TO FOLLOW.
[2021-07-26] MEDS: ALBUTEROL SULFATE/IPRATROPIU 3 ML SOL IH SCH ×3 (07:32→20:20)
--- NOTE | 2021-07-26 07:33 | NUR ---
RECEIVED ON A GEOLIDSCAPE R860 VENTILATOR PLUGGED INTO RED OUTLET TOLERATING WELL WITHOUT ADVERSE REACTIONS NOTED TO A PORTEX DCT#7 AIRWAY SECURED WITH A DANITA TRACH TIE CUFF PRESSURE CHECKED NOTED AMBU NOTED AT BEDSIDE RESTING COMFORTABLY GOOD CHEST RISE DEEP TACHEAL SUCTION FOR LARGE THIN PALE YELLOW SECRETIONS AIRWAY PATENT
[2021-07-26] MEDS: PANTOPRAZOLE 40 MG INJ VIAL IVP SCH ×2 (08:03→21:08)
[2021-07-26] MEDS: BLOOD GLUCOSE MONITORING 1 DEV DEV FS SCH ×4 (08:04→21:08)
--- NOTE | 2021-07-26 08:05 | NUR ---
BLOOD GLUCOSE 120 NO INSULIN COVERAGE NEEDED.
--- NOTE | 2021-07-26 11:16 | NUR ---
STABLE EQUAL CHEST RISE DEEP TRACHEAL SUCTION FOR LARGE THIN PALE YELLOW SECRETIONS AIRWAY PATENT
--- NOTE | 2021-07-26 12:05 | NUR ---
ON OR ABOUT THIS TIME SOLE FILLER CALLED TO BEDSIDE RN AND BEHAVIORAL HEALTH CLINICIAN AT BEDSIDE PATIENT PRESENTING WITH EXPIRATORY Vt LESS THAN 200ml (IBW 300ml 6ml/kg) SATURATION IN LOW 80% BREATH SOUNDS DIFFUSED RALES BILATERAL RESPIRATORY RATE +36 BPM DEEP TRACHEAL SUCTION FOR SMALLTHIN PALE YELLOW SECRETIONS INCREASED Pinsp TO [id number] TO MAINTAIN EXPIRATORY Vt GREATER THAN 6ml/kg; INCREASED FIO2 TO 50% TO MAINTAIN SATURATION GREATER THAN 90% REVIEWED I/O's THIS AM AT 0659 +1729ml; LABS 07/26 INCREASED WBC 19.0 FROM 07/25 8.7; BUN 21 FROM 07/24 AT 15: B/P 170's/100's (RN AWARE)
--- NOTE | 2021-07-26 12:15 | NUR ---
PT HAS BLOOD PRESSURE 175/[address] KEYS AWAITING FOR FURTHER ORDERS WILL CONTINUE TO MONITOR PT BLOOD PRESSURE
[2021-07-26] MEDS: MORPHINE SULFATE 2 MG/ML SYR IVP PRN (12:17)
--- NOTE | 2021-07-26 13:00 | NUR ---
PT BLOOD PRESSURE IS 95/[address] KEYS.
[2021-07-26] MEDS: ALBUTEROL SULFATE/IPRATROPIU 3 ML SOL IH PRN (13:17)
--- NOTE | 2021-07-26 13:17 | NUR ---
STABLE GOOD CHEST RISE DEEP TRACHEAL SUCTION FOR MODERATE THIN PALE YELLOW SECRETIONS AIRWAY PATENT PER RN MORPHINE SULFATE GIVEN VIA IVP AT 1217 EXPIRATORY Vt +470ml AT Pinsp [id number] SATURATION 100% ON FIO2 OF 50% PEEP 5cmH2O POST HHN THERAPY DECREASED Pinsp TO [id number] TO MAINTAIN EXPIRATORY Vt GREATER THAN 300ml (6ml/kg) TITRATED FIO2 TO 40% TO KEEP SATURATION GREATER THAN 40%
--- NOTE | 2021-07-26 14:00 | NUR ---
REASSESS THE BLOOD PRESSURE ITS 105/45 HR 67.
--- NOTE | 2021-07-26 19:25 | NUR ---
ENDORSED THE NIGHT NURSE FOR CONTINUITY OF CARE PT IS STABLE.
[2021-07-26] MEDS: BUDESONIDE 0.5 MG/2 ML NEBU INH SCH (20:20)
[2021-07-27] VITALS (9 sets, daily range): BP systolic 113–154; BP diastolic 49–78
--- NOTE | 2021-07-27 03:32 | NUR ---
patient awake unable to talk has trach to vent rate 16, pressure control 30 fi02 30% peep 5. sat 95% lungs diminish no cough on monitor sinus has n.s infusing at 60 hour site ok uuper right arm with picc line. blood sugar 2100 98 no insulin given f/c draining khadar urine. temp 98.4has wound on right hand to take picture tonite.
[2021-07-27] MEDS: NACL 0.9% 1,000 ML IV SCH ×2 (03:55→20:35)
[2021-07-27] MEDS: BLOOD GLUCOSE MONITORING 1 DEV DEV FS SCH ×4 (06:11→21:56)
[2021-07-27 06:26] LABS: BASOPHILS % (AUTO) 0.3 % (0.0-2.0); EOSINOPHILS # (AUTO) 0.2 K/uL (0-0.4); EOSINOPHILS % (AUTO) 1.2 % (0.0-4.0); HEMATOCRIT 30.7 % (36-48); HEMOGLOBIN 9.7 g/dL (12.0-16.0); LYMPHOCYTES # (AUTO) 7.7 K/uL (2.5-16.5); LYMPHOCYTES % (AUTO) 46.2 % (20.5-51.1); MEAN CORPUSCULAR HEMOGLOBIN 30 pg (27-31); MEAN CORPUSCULAR HGB CONC 32 g/dL (33-37); MONOCYTES # (AUTO) 0.8 K/uL (0.8-1.0); MONOCYTES % (AUTO) 4.8 % (1.7-9.3); NEUTROPHILS # (AUTO) 7.9 K/uL (1.8-7.7); NEUTROPHILS % (AUTO) 47.5 % (42.2-75.2); PLATELET COUNT (AUTO) 372 K/uL (140-450); RED CELL DISTRIBUTION WIDTH 16.4 % (11.6-13.7); WHITE BLOOD COUNT (AUTO) 16.6 K/uL (4.8-10.8)
[2021-07-27 06:27] LABS: ANION GAP 12.2 (8-16); CARBON DIOXIDE 28.1 mmol/L (21-32); CHLORIDE 112 mmol/L (98-107); CREATININE 0.9 mg/dL (0.6-1.3); GLUCOSE 138 mg/dL (74-106); POTASSIUM 4.3 mmol/L (3.5-5.1); SODIUM SERUM 148 mmol/L (136-145); UREA NITROGEN, BLOOD 25 mg/dL (7-18)
--- NOTE | 2021-07-27 07:29 | NUR ---
RECEIVED REPORT FROM SOFTWARE ENGINEERING SUPERVISOR NURSE FOR CONTINUITY OF CARE, POC DISCUSSED. PT IS IN BED TRACH TO VENT SATING AT 98%, PT ON TELE MONITOR SHOWING 92. PT HAS A RIGHT UPPER ARM PICC CHEESH-NA RUNNING NS @ 60. PT HAS A GTUBE RUNNING VITAL AT 40 ML AND Q6HR 95CC FLUSHES. PT IS CONTRACTED UNABLE TO SPEAK. PT HAS A [place] CATH DRAINING YELLOW URINE. PT HAS A RIGHT HAND WOUND. ALL SAFETY MEASURES IN PLACE, CALL LIGHT WITHIN REACH. WILL CONTINUE TO MONITOR.
--- NOTE | 2021-07-27 07:48 | NUR ---
RECEIVED ON A Hole 19SCAPE R860 VENTILATOR PLUGGED INTO RED OUTLET TOLERATING WELL WITHOUT ADVERSE REACTIONS NOTED TO A PORTEX DCT #8 AIRWAY SECURED WITH A DANITA TRACH TIE CUFF PRESSURE CHECKED NOTED AMBU BAG AT BEDSIDE RESTING COMFORTABLY GOOD CHEST RISE DEEP TRACHEAL SUCTION FOR MODERATE THIN PALE YELLOW SECRETIONS AIRWAY PATENT
[2021-07-27] MEDS: ALBUTEROL SULFATE/IPRATROPIU 3 ML SOL IH SCH ×2 (07:49→13:47)
[2021-07-27] MEDS: BUDESONIDE 0.5 MG/2 ML NEBU INH SCH ×2 (07:49→19:21)
[2021-07-27] MEDS: PANTOPRAZOLE 40 MG INJ VIAL IVP SCH ×2 (09:37→21:54)
--- NOTE | 2021-07-27 09:46 | NUR ---
RESTING/SLEEPING WELL NO DISTRESS NOTED GOOD CHEST RISE NO SUCTIONING AT THIS TIME MANAGER REHAB TO MONITOR
--- NOTE | 2021-07-27 09:57 | NUR ---
OLVIN MEDICATION ADMINISTERED PER MD ORDER. PT IV IS PATENT AND INTACT. PT TOLERATED ADMINISTRATION. PT ON TRACH TO VENT, SATING AT 98%. PT SHOWS NO SIGNS OF DISTRESS. BP IS 103/49
--- NOTE | 2021-07-27 10:08 | NUR ---
GALLO MORIN REPORTS BLOOD PRESSURE 84/48. REASSESSED BLOOD PRESSURE AND RECEIVED 133/60 READING. WILL CONTINUE TO MONITOR.
--- NOTE | 2021-07-27 11:04 | NUR ---
PT BREATHING UNEVEN AND GASPING. NOTIFIED RT, SANTIAGO, SUCTION DONE. WILL CONTINUE TO MONITOR.
--- NOTE | 2021-07-27 11:21 | NUR ---
DANIEL MCQUEEN REPORTS BLOOD PRESSURE 191/112, REASSESSED BP AND SWITCHED BLOOD PRESSURE CUFF, NEW READING 145/84. WILL CONTINUE TO MONITOR.
--- NOTE | 2021-07-27 12:20 | NUR ---
BLOOD GLUCOSE IS 99, NO INSULIN COVERAGE NEEDED PER MD SLIDING SCALE. PT O2 AT 99%. NEW IV FLUIDS REPLENISHED. ALL SAFETY MEASURES IN PLACE, CALL LIGHT WITHIN REACH. WILL CONTINUE TO MONITOR.
--- NOTE | 2021-07-27 14:08 | NUR ---
PATIENT IS RESTING IN BED WITH NO S/S OF ACUTE DISTRESS, PATIENT TRACH TO VENT SATING AT 98%. ALL SAFETY MEASURES IN PLACE, CALL LIGHT WITHIN REACH. WILL CONTINUE TO MONITOR.
[2021-07-27] MEDS: ALBUTEROL SULFATE/IPRATROPIU 3 ML SOL IH PRN (14:13)
--- NOTE | 2021-07-27 14:15 | NUR ---
07/27/21 RD FOLLOW UP COMPLETED PLEASE REFER TO NUTRITION ASSESSMENT UNDER CARE ACTIVITY FOR ESTIMATED NUTRITIONAL NEEDS. 1.CONTINUE VITAL AF 1.2 @40 ML/HR - THIS WILL PROVIDE 1152 KCAL/DAY AND 72 GM OF PROTEIN/DAY 2. CONTINUE FREE WATER FLUSH OF [address] TO FOLLOW UP 2-3 DAYS, HIGH RISK MARIA ELENA LEMA, RD
--- NOTE | 2021-07-27 15:24 | NUR ---
PATIENT HAS BEEN GIVEN A BED BATH. 1 BOWEL MOVEMENT NOTED. PATIENT SATURATED AT 97-100% THE WHOLE TIME. ALL NEW SHEETS AND MARY APPLIED. PATIENT REPOSITIONED. LEBRON CARE COMPLETED, DAVENPORT DRAINING YELLOW URINE. NO BEDSORES NOTED. RIGHT UPPER ARM PICC LINE INTACT. ORAL SUCTIONING COMPLETED. ORAL CARE COMPLETED. ALL SAFETY MEASURES IN PLACE, CALL LIGHT WITHIN REACH. WILL CONTINUE TO MONITOR.
--- NOTE | 2021-07-27 15:43 | NUR ---
REVIEWED WITH DR. DAYDAY KEYS PATIENT STATUS AND HHN FREQUENCY VORBO: OK FOR MEDICAL REFERRAL COORDINATOR TO CHANGE HHN FREQUENCY TO Q6 HOURS
--- NOTE | 2021-07-27 16:53 | NUR ---
PATIENT BLOOD GLUCOSE IS 86, NO INSULIN COVERAGE NEEDED PER MD ORDER. PT IS STABLE IN BED RESTING ON TRACH TO VENT SATING AT 99%. PATIENT IS TELEMONITOR SATING AT 77 SINUS RHYTHM. ALL SAFETY MEASURES IN PLACE, CALL LIGHT WITHIN REACH. WILL CONTINUE TO MONITOR.
--- NOTE | 2021-07-27 18:51 | NUR ---
RADIOLOGY AT BEDSIDE TAKING CHEST XRAY. PT IS STABLE WITH NO ACUTE S/S OF DISTRESS. ALL SAFETY MEASURES IN PLACE, WILL CONTINUE TO MONITOR.
[2021-07-27] MEDS ORDERED: ALBUTEROL SULFATE/IPRATROPIU 3 ML SOL IH SCH (19:00)
--- NOTE | 2021-07-27 19:00 | NUR ---
PATIENT AWAKE NOT ALERT HAS TRACH TO VENT RATE 16 PRESSURE CONTROL 30 FI02 40% PEEP5. SAT 97%. PATIENT ON MONITOR SINUS TEMP 99.8. LUNGS DIMINISH PATIENT HAS PICC LINE UPPER RIGHT INFUSING NS 60 HOUR. PATIENT HAS GT RECEIVING VITALS AT 40 HOUR. NO RESIDUAL RECEIVING H20 95 HOUR. PATIENT HAS F/C DRAINING YELLOW URINE. MAXIMAL CARE RENDERED PER STAFF. 2 PERSON ASSIST REQUIRED. RT RENDERED TREATMENT. NO ACUTE DISTRESS NOTED.
--- NOTE | 2021-07-27 19:04 | NUR ---
PT ENDORSED TO GRAIN SHIPPER NURSE FOR CONTINUITY OF CARE, POC DISCUSSED. PT STABLE
[2021-07-28] VITALS (8 sets, daily range): BP systolic 116–153; BP diastolic 47–75
--- NOTE | 2021-07-28 02:40 | NUR ---
PATIENT SEEN AND EVALUATED BY WEATHERIZATION ADMINISTRATOR. RN NOTIFIED RESPIRATORY THERAPIST GRAYSON FOR EVALUATION OF PATIENT CONDITION, TREATMENT RENDERED. PT CONTINUED TRACH/VENT. 02 SAT 90. PEEP 5, FI02 30, RATE 16. CHEST X RAY RESULTS PENDING. PT REQUIRES MAXIMAL CARE/ 2 PERSON ASSIST REQUIRED. CONTRACTED UPPER AND LOWER EXTREMITIES NOTED. ANTIBIOTIC CONTINUED WITH NO ADVERSE EFFECTS. 2/3 PERSON ASSISTANCE WITH HYGIENE/TRANSFERS. CARDIAC SINUS RHYTHM. TUBE FEEDING AF 1.2 @ 40 ML/HR. RT/BREATHING TREATMENT. DAVENPORT CATH PATENT AND INTACT WITH 700CC LANRE URINE IN BAG. NO ACUTE DISTRESS NOTED. LONG TERM CARE ADMINISTRATOR INFORMED OF PATIENT CONDITION.
--- NOTE | 2021-07-28 02:56 | NUR ---
0230 PATIENTS SATS 66%. PLACED PATIENT ON 100% FIO2. PATIENT IS ALSO AGONAL BREATHING. INCREASED ITIME TO 1.00. INCREASED PEEP TO 8CM. PATIENTS TIDAL VOLUMES ARE LOW. CHECKED FOR LEAKS. NO LEAKS. ADDED AIR TO CUFF. RN AWARE OF PATIENTS CONDITION
--- NOTE | 2021-07-28 03:34 | NUR ---
RN INFORMED CHARGE NURSE FLO OF PATIENT CURRENT CONDITION AND RN REQUEST FOR THE PATIENT TO BE EVALUATED BY RESPIRATORY THERAPIST. PATIENTS SATS 66%. PLACED PATIENT ON 100% FIO2. PATIENT IS ALSO AGONAL BREATHING. INCREASED TIME TO 1.00. INCREASED PEEP TO 8CM. PATIENTS TIDAL VOLUMES ARE LOW. CHECKED FOR LEAKS. NO LEAKS. ADDED AIR TO CUFF. ONGOING RESPIRATORY CARE RENDERED. RN WILL CONTINUE WITH ONGOING MEDICAL CARE/ASSISTANCE. NO ACUTE MEDICAL DISTRESS NOTED.
[2021-07-28] MEDS ORDERED: ALBUTEROL SULFATE/IPRATROPIU 3 ML SOL IH SCH (07:00)
--- NOTE | 2021-07-28 07:20 | NUR ---
RECEIVED BEDSIDE REPORT FROM MARKING MACHINE OPERATOR NURSE PT APHASIC, CONTRACTED. ON TRACH TO VENT ACPC FIO2 100%, RATE 16, PEEP 7. NO SOB NOTED, SATURATING @ 100%, PICC LINE TO R UPPER ARM PATENT INTACT, INFUSING NS @ 60ML/HR, INFUSING WELL, GT IN PLACE WITH FEEDING VITAL AF 1.2 @ 45ML/HR, TOLERATED WELL, RESIDUAL 50ML. DAVENPORT CATH IN PLACE DRAINING TO GRAVITY, NOTED YELLOW URINE. INITIAL ASSESSMENT DONE, ALL SAFETY PRECAUTION MET, CALL LIGHT WITHIN REACH, WILL CONTINUE TO MONITOR.
[2021-07-28] MEDS: BUDESONIDE 0.5 MG/2 ML NEBU INH SCH ×2 (07:22→19:41)
[2021-07-28] MEDS: ALBUTEROL SULFATE/IPRATROPIU 3 ML SOL IH SCH ×3 (07:22→19:41)
--- NOTE | 2021-07-28 07:23 | NUR ---
RECEIVED ON A HighGroundSCAPE R860 VENTILATOR PLUGGED INTO RED OUTLET TOLERATING WELL WITHOUT ADVERSE REACTIONS NOTED TO A PORTEX DCT #7 AIRWAY SECURED WITH A DANITA TRACH TIE CUFF PRESSURE CHECKED NOTED ABU BAG AT BEDSIDE PEAK PRESSURE AT 28xwD7G DECREASED Pinsp TO 62lvG2M; DECREASED PEEP TO 7cmH2O GOOD CHEST RISE DEEP TRACHEAL SUCTION FOR SMALL THIN HAZY TO PALE FIERRO SECRETIONS AIRWAY PATENT
[2021-07-28] MEDS: BLOOD GLUCOSE MONITORING 1 DEV DEV FS SCH ×4 (07:30→20:53)
[2021-07-28] MEDS: PANTOPRAZOLE 40 MG INJ VIAL IVP SCH ×2 (09:18→21:06)
--- NOTE | 2021-07-28 09:18 | NUR ---
DUE MEDICATIONS ADMINISTERED, PT TOLERATED WELL, WILL CONTINUE TO MONITOR.
--- NOTE | 2021-07-28 09:31 | NUR ---
DC PLANNING: PATIENT KNOW TO SUPERVISOR PHOSPHORIC ACID FROM PRIOR ADMISSIONS. 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 PATIENT DC'D TO [facility] BUT WAS RETURNED WITHIN 2 HOURS SHE IS PC MODE, [facility] VENTS ARE UNABLE TO SUPPORT THIS. REMAINS AT A PEEP OF 7 WITH FIO2 OF 100%. CM WILL SPEAK WITH OTHER SUBACUTES AND WILL SPEAK WITH LTAC FOR PLACEMENT AND WEANING IF POSSIBLE TO AC MODE. CM WILL FOLLOW FOR NEEDS. Addendum: 07/29/21 at 1326 by Radha Morel DC PLANNING SW ATTEMPTED TO CONTACT PATIENT'S DAUGHTER DENISSE FERNANDEZ AT TO DISCUSS PATIENT'S LEVEL OF CARE NEEDS, POSSIBLE HOSPICE. PATIENT'S DAUGHTER DID NOT ANSWER AND SW LEFT HER A VOICE MAIL MGS WITH THESE WRITERS DIRECT CONTACT. SW WILL FOLLOW UP NEEDED. Addendum: 08/03/21 at 7883 by Beba Crowell DC PLANNING: JONATHAN SPOKE WITH BC AT [facility], SHE STATES THAT THEY CAN ACCEPT THE PATIENT ON PC VENTILATOR MODE BUT HER FIO2 HAS TO BE 30% OR BELOW. CM WILL FOLLOW FOR NEEDS. Addendum: 08/03/21 at 1407 by Beba Crowell CM DC PLANNING: JONATHAN CLARIFIED THE VENT SETTINGS THAT [facility] IS ABLE TO HANDLE, PRESSURE CONTROL HAS TO BE 30% OR UNDER FOR THE PATIENT TO BE ABLE TO RETURN TO [facility], NOT THE FIO2. JONATHAN SPOKE WITH THE RT, DR ROUSE WAS PRESENT, RT WILL DECREASE THE PRESSURE CONTROL AND INCREASE THE TIDAL VOLUME AND WILL THEN GET ABG'S TO SEE HOW WELL THE PATIENT TOLERATES THE VENT CHANGES. CM WILL CONTINUE TO FOLLOW FOR NEEDS. Addendum: 08/03/21 at 1409 by Beba Crowell CM DC PLANNING: CORRECTION TO EARLIER NOTE, DR LANE SPOKE WITH CM AND RT REGARDING VENT CHANGES AND MONITORING. CM WILL FOLLOW FOR NEEDS. Addendum: 08/04/21 at 1338 by Beba Crowell CM DC PLANNING: PATIENT ACCEPTED BACK TO [facility], ASSIGNED ROOM 2A. TRANSPORT ARRANGED WITH [facility] FOR 3 PM DIRECTOR INTERNATIONAL, ALS LEVEL. DISCHARGE ENDORSED TO THE PATIENTS FATIMAH EHLTON. CM WILL FOLLOW FOR NEEDS.
[2021-07-28] MEDS: NACL 0.9% 1,000 ML IV SCH (11:00)
--- NOTE | 2021-07-28 11:20 | NUR ---
NOTIFIED DR KEYS REGARDING PT HAS A LOT OF FLUIDS IN THE LUNGS, SOUNDS COARSE, PT STILL ON NS @ 60, PER DR KEYS TO REDUCE RATE TO 10ML/HR, WILL CONTINUE WITH ORDERS.
--- NOTE | 2021-07-28 11:30 | NUR ---
RESTING COMFORTABLY GOOD CHEST RISE Addendum: 07/28/21 at 1315 by Matt Simons RT SATURATION 100% TITRATED FIO2 TO 95% GLASSWARE VERIFIER TO NOTIFY RN
--- NOTE | 2021-07-28 12:06 | NUR ---
PT BLOOD SUGAR 83, NO INSULIN GIVEN, PT ON TUBE FEEDING WILL CONTINUE, TO MONITOR.
--- NOTE | 2021-07-28 13:47 | NUR ---
STABLE NO DISTRESS NOTED GOOD CHEST RISE DEEP TRACHEAL SUCTION FOR MODERATE THIN HAZY TO PALE FIERRO SECRETIONS SATURATION 100% ON FIO2 OF 95% PEE 7cmH2O POST HHN THERAPY TITRATED FIO2 TO 80% LAINEY/RN NOTIFIED
--- NOTE | 2021-07-28 17:00 | NUR ---
CHANGED AND CLEANED PT, DAVENPORT CARE DONE, CHG BATH DONE, PICC DRESSING CHANGED. WILL CONTINUE TO MONITOR.
[2021-07-28 17:27] LABS: BASOPHILS % (AUTO) 0.7 % (0.0-2.0); EOSINOPHILS # (AUTO) 0.3 K/uL (0-0.4); EOSINOPHILS % (AUTO) 5.1 % (0.0-4.0); HEMATOCRIT 21.7 % (36-48); HEMOGLOBIN 7.2 g/dL (12.0-16.0); LYMPHOCYTES % (AUTO) 45.6 % (20.5-51.1); MEAN CORPUSCULAR HEMOGLOBIN 31 pg (27-31); MEAN CORPUSCULAR HGB CONC 33 g/dL (33-37); MEAN CORPUSCULAR VOLUME 92.8 fL (80-94); MONOCYTES # (AUTO) 0.4 K/uL (0.8-1.0); MONOCYTES % (AUTO) 6.6 % (1.7-9.3); NEUTROPHILS # (AUTO) 2.8 K/uL (1.8-7.7); PLATELET COUNT (AUTO) 219 K/uL (140-450); RED BLOOD CELL COUNT(AUTO) 2.34 MIL/uL (4.20-5.40); RED CELL DISTRIBUTION WIDTH 15.9 % (11.6-13.7); WHITE BLOOD COUNT (AUTO) 6.6 K/uL (4.8-10.8)
[2021-07-28 17:38] LABS: MAGNESIUM 2.1 mg/dL (1.8-2.4); PHOSPHORUS 2.3 mg/dL (2.5-4.9)
[2021-07-28] MEDS: FLUCONAZOLE 200 MG/NS PREMIX 100 ML IV SCH (17:59)
--- NOTE | 2021-07-28 19:33 | NUR ---
ENDORSED PT TO CYTOLOGY TECHNOLOGIST NURSE SARA SHERIDAN FOR CONTINUOUS OF CARE. PT STABLE.
[2021-07-28 20:34] LABS: ANION GAP 10.9 (8-16); CARBON DIOXIDE 27.8 mmol/L (21-32); CHLORIDE 116 mmol/L (98-107); CREATININE 0.9 mg/dL (0.6-1.3); GLUCOSE 90 mg/dL (74-106); POTASSIUM 3.7 mmol/L (3.5-5.1); SODIUM SERUM 151 mmol/L (136-145); UREA NITROGEN, BLOOD 26 mg/dL (7-18)
[2021-07-29] VITALS: BP 150/58
[2021-07-29] MEDS: ALBUTEROL SULFATE/IPRATROPIU 3 ML SOL IH SCH ×4 (00:11→19:00)
[2021-07-29 04:00] VITALS: BP 148/72
[2021-07-29] MEDS: BLOOD GLUCOSE MONITORING 1 DEV DEV FS SCH ×4 (06:37→21:43)
--- NOTE | 2021-07-29 07:33 | NUR ---
HANDOFF WITH FATIMAH THORNE. SARA PRICE RN
--- NOTE | 2021-07-29 07:34 | NUR ---
RECEIVED REPORT FROM RECEPTIONIST NURSE NURSE. PATIENT LYING DOWN IN BED SLEEPING, AROUSABLE BY TOUCH. NO DISTRESS NOTED. ON TRACH TO VENT. OMAR PICC LINE INTACT, PATENT, AND INFUSING IVF PER MD ORDERS. WOUND DRESSINGS INTACT. REVIEWED PLAN OF CARE WITH PATIENT. UNABLE TO COMPREHEND. SAFETY MEASURES IN PLACE, CALL LIGHT WITHIN REACH. WILL CONTINUE TO MONITOR.
[2021-07-29 08:00] VITALS: BP 142/58
[2021-07-29] MEDS: BUDESONIDE 0.5 MG/2 ML NEBU INH SCH ×2 (08:00→19:07)
[2021-07-29] MEDS: PANTOPRAZOLE 40 MG INJ VIAL IVP SCH ×2 (09:39→21:39)
--- NOTE | 2021-07-29 10:04 | NUR ---
SCHEDULED MEDICATIONS DUE GIVEN. WILL CONTINUE TO MONITOR.
--- NOTE | 2021-07-29 11:21 | NUR ---
ATTEMPTED VOLUME CONTROL PER MD REQUESTS BUT PT DID NOT TOLERATE CHANGE. PATIENT HAD HIGH PIPS IN THE 49-52 RANGE. PT DID NOT TOLERATE AND CHANGE WAS IMMEDIATELY NOTICEABLE. PT WAS SWITCHED BACK TO PC MODE DUE TO CONCERN FOR TRAUMA DUE TO HIGH PIPS.
[2021-07-29 12:00] VITALS: BP 145/60
--- NOTE | 2021-07-29 14:38 | NUR ---
CHANGED PATIENT, BM X1. WILL CONTINUE TO MONITOR.
[2021-07-29 16:00] VITALS: BP 114/56
[2021-07-29] MEDS: FLUCONAZOLE 200 MG/NS PREMIX 100 ML IV SCH (17:41)
[2021-07-29 20:00] VITALS: BP 214/106
[2021-07-29] MEDS: NACL 0.9% 1,000 ML IV SCH (21:39)
[2021-07-29] MEDS: hydrALAZINE 20 MG/ML VIAL IVP PRN (22:08)
[2021-07-30] VITALS (7 sets, daily range): BP systolic 141–198; BP diastolic 52–78
[2021-07-30] MEDS: ALBUTEROL SULFATE/IPRATROPIU 3 ML SOL IH SCH ×4 (01:59→19:45)
[2021-07-30] MEDS: BLOOD GLUCOSE MONITORING 1 DEV DEV FS SCH ×4 (06:42→20:54)
[2021-07-30] MEDS: hydrALAZINE 20 MG/ML VIAL IVP PRN (06:57)
--- NOTE | 2021-07-30 07:27 | NUR ---
RECEIVED REPORT FROM FLOWER BUNCHER OR PICKER NURSE FOR CONTINUITY OF CARE, HYDRALAZINE ADMINISTERED AT 0657, WILL REASSESS AT 0757. PT IS APHASIC TRACH TO VENT SATING AT 100% WITH FIO2 AT 40. PT HAS A RIGHT HAND BLISTER WITH DRESSING INTACT, AND A RIGHT UPPER ARM PICC LINE RUNNING NS TKO. PT HAS A GTUBE IN PLACE RUNNING VITAL @ 40 WITH Q6 FLUSHES OF 95CC. PT IS ON THE TELE MONITOR SHOWING SINUS RHYTHM OF 93. LAST BLOOD GLUCOSE REPORTED TO BE 85, NO INSULIN COVERAGE WAS NEEDED. ALL SAFETY MEASURES IN PLACE, CALL LIGHT WITHIN REACH. WILL CONTINUE TO MONITOR.
--- NOTE | 2021-07-30 07:27 | NUR ---
HANDOFF WITH FATIMAH MARTINEZ. SARA PRICE RN
--- NOTE | 2021-07-30 07:57 | NUR ---
REASSESSED BLOOD PRESSURE AFTER HYDRALAZINE WAS ADMINISTERED, BP 153/54 HEART RATE 75. PT SATING AT 100% WITH 24 RR. WILL CONTINUE TO MONITOR.
[2021-07-30] MEDS: PANTOPRAZOLE 40 MG INJ VIAL IVP SCH ×2 (08:16→20:54)
--- NOTE | 2021-07-30 08:21 | NUR ---
OLVIN MEDICATION ADMINISTERED PER MD ORDER, PT TOLERATED ADMINISTRATION. PT IV IS INTACT AND PATENT. RT AT BEDSIDE GIVING PT A BREATHING TREATMENT. ALL SAFETY MEASURES IN PLACE, CALL LIGHT WITHIN REACH. WILL CONTINUE TO MONITOR.
[2021-07-30] MEDS: BUDESONIDE 0.5 MG/2 ML NEBU INH SCH ×2 (08:42→20:03)
--- NOTE | 2021-07-30 12:11 | NUR ---
BLOOD GLUCOSE IS 99, NO INSULIN COVERAGE NEEDED PER PROTOCOL. ALL SAFETY MEASURES IN PLACE, CALL LIGHT WITHIN REACH. WILL CONTINUE TO MONITOR.
--- NOTE | 2021-07-30 12:27 | NUR ---
07/30/21 RD FOLLOW UP COMPLETED PLEASE REFER TO NUTRITION ASSESSMENT UNDER CARE ACTIVITY FOR ESTIMATED NUTRITIONAL NEEDS. 1.CONTINUE VITAL 1.2 @40 ML/HR - THIS WILL PROVIDE 1152 KCAL/DAY AND 72 GM OF PROTEIN/DAY. 2. CONTINUE FREE WATER FLUSH OF [address] TO FOLLOW UP 2-3 DAYS, HIGH RISK MARIA ELENA LEMA, RD
[2021-07-30] MEDS: MORPHINE SULFATE 2 MG/ML SYR IVP PRN (13:50)
--- NOTE | 2021-07-30 13:50 | NUR ---
PRN PAIN MEDICATION ADMINISTERED FOR A FLACC OF 6/10. PT TOLERATED ADMINISTRATION. ALL SAFETY MEASURES IN PLACE, WILL CONTINUE TO MONITOR.
--- NOTE | 2021-07-30 15:37 | NUR ---
PT HAS BEEN CHANGED, SPONGE BATH PROVIDED, PERICARE PROVIDED, WOUND CARE PROVIDED, AND SHEETS HAVE BEEN CHANGED. 1 BM NOTED. PT TOLERATED REPOSITIONING AND CLEANING. SEVERE EDEMA NOTED IN LEBORN AREA, UNABLE TO SPREAD LEG. WILL NOTIFY CHARGE FOR ASSISTANCE WITH CHANGING OF DAVENPORT CATH. PT HR IS CURRENTLY 98, O2 IS 98%. ALL SAFETY MEASURES IN PLACE, WILL CONTINUE TO MONITOR.
--- NOTE | 2021-07-30 16:03 | NUR ---
CALLED LAB AND INFORMED THEM OF CBC AND BNP NEEDING TO BE DRAWN.
--- NOTE | 2021-07-30 16:30 | NUR ---
TRISH BLOOD FROM PICC LINE FOR LAB. DISCARDED FIRST 10 CC, COLLECTED BLOOD FOR LAB, THEN FLUSHED WITH 20 CC AFTER BLOOD DRAW. IV PATENT AND INTACT.
[2021-07-30 16:31] LABS: BASOPHILS # (AUTO) 0.1 K/uL (0.00-0.22); BASOPHILS % (AUTO) 0.6 % (0.0-2.0); EOSINOPHILS # (AUTO) 0.3 K/uL (0-0.4); EOSINOPHILS % (AUTO) 2.5 % (0.0-4.0); HEMATOCRIT 25.4 % (36-48); HEMOGLOBIN 8.1 g/dL (12.0-16.0); LYMPHOCYTES # (AUTO) 2.4 K/uL (2.5-16.5); LYMPHOCYTES % (AUTO) 23.4 % (20.5-51.1); MEAN CORPUSCULAR HEMOGLOBIN 30 pg (27-31); MEAN CORPUSCULAR HGB CONC 32 g/dL (33-37); MEAN CORPUSCULAR VOLUME 93.8 fL (80-94); MONOCYTES # (AUTO) 0.7 K/uL (0.8-1.0); MONOCYTES % (AUTO) 6.6 % (1.7-9.3); NEUTROPHILS # (AUTO) 6.8 K/uL (1.8-7.7); NEUTROPHILS % (AUTO) 66.9 % (42.2-75.2); PLATELET COUNT (AUTO) 242 K/uL (140-450); RED BLOOD CELL COUNT(AUTO) 2.71 MIL/uL (4.20-5.40); RED CELL DISTRIBUTION WIDTH 16.3 % (11.6-13.7); WHITE BLOOD COUNT (AUTO) 10.2 K/uL (4.8-10.8)
[2021-07-30 16:41] LABS: ANION GAP 9.1 (8-16); CHLORIDE 115 mmol/L (98-107); CREATININE 0.9 mg/dL (0.6-1.3); GLUCOSE 124 mg/dL (74-106); POTASSIUM 3.1 mmol/L (3.5-5.1); SODIUM SERUM 150 mmol/L (136-145); UREA NITROGEN, BLOOD 23 mg/dL (7-18)
[2021-07-30] MEDS: FLUCONAZOLE 200 MG/NS PREMIX 100 ML IV SCH (17:59)
--- NOTE | 2021-07-30 18:03 | NUR ---
DISCONTINUED DAVENPORT PER MD ORDER AND INSERTED NEW DAVENPORT. PT TOLERATED INSERTION SATING AT 100%. URINE NOTED DURING INSERTION. BALLOON INFLATED WITH 10 CC. DAVENPORT PLACED ON BED.
--- NOTE | 2021-07-30 18:28 | NUR ---
PERFORMED WOUND CARE ON BLISTERS ON TOP OF RIGHT HAND. NO DRAINAGE AND NO GRIMACE OR PAIN NOTED. CAMERA WAS NOT AVAILABLE, MEASURED INSTEAD AND NOTED THE APPEARANCE AND SIZES OF BLISTERS ON HAND. PT TOLERATED TREATMENT WELL. WILL CONTINUE TO MONITOR.
--- NOTE | 2021-07-30 18:31 | NUR ---
ADMINISTERED IV MED PER MD ORDER. PT IS STABLE. WILL CONTINUE TO MONITOR.
[2021-07-30 19:05] LABS: APPEARANCE,URINE SL CLOUDY (CLEAR); BILIRUBIN,URINE NEGATIVE (NEGATIVE); BLOOD, URINE 3+ (NEGATIVE); COLOR,URINE YELLOW (YELLOW); LEUKOCYTE ESTERASE ,URINE TRACE (NEGATIVE); NITRITE, URINE NEGATIVE (NEGATIVE); UGLUCOSE NEGATIVE (NEGATIVE)
[2021-07-30 19:18] LABS: RBC,URINE TOO NUMEROUS TO COUN /HPF (0-5); WBC,URINE 0-5 /HPF (0-5)
--- NOTE | 2021-07-30 19:30 | NUR ---
RECEIVED BEDSIDE REPORT FROM DAY SHIFT NURSE. PATIENT IS APHASIC AND AWAKE. RESPIRATION EVEN UNLABORED ON TRACH TO VENT. SKIN IS WARM AND DRY. RIGHT HAND SKIN BLISTER IS NOTED WITH DRESSING DRY AND INTACT. RIGHT PICC LINE NOTED NS RUNNING AT 10ML/HR. G-TUBE NOTED RUNNING AT 40CC/HR. DAVENPORT CATHETER DRAINING YELLOW URINE NOTED. PLAN OF CARE UPDATED. ALL SAFETY MEASURES IN PLACE. BED IS AT LOW POSITION. CALL LIGHT WITHIN REACH. WILL CONTINUE TO MONITOR
--- NOTE | 2021-07-30 19:35 | NUR ---
PT HAS BEEN ENDORSED TO CUT ROLL MACHINE OFFBEARER NURSE FOR CONTINUITY OF CARE, POC DISCUSSED.
[2021-07-30] MEDS: NACL 0.9% 1,000 ML IV SCH (20:35)
[2021-07-30] MEDS: POTASSIUM CHLORIDE 20% 40 MEQ/15 ML UDC GT PRN (20:54)
--- NOTE | 2021-07-30 21:15 | NUR ---
INITIAL ASSESSMENT DONE. PATIENT RIGHT PICC LINE CATHETER IS HALF WAY OUT, STOP INFUSION, NOTIFIED MD. PER MD ORDER STAT CHEST XRAY FOR PLACEMENT.
--- NOTE | 2021-07-30 21:30 | NUR ---
ALL SCHEDULED MEDS WERE GIVEN PER ORDER. G-TUBE RESIDUAL OBTAINED 30CC OF TUBE FEEDING FORMULAS. WILL CONTINUE TO MONITOR
--- NOTE | 2021-07-30 21:48 | NUR ---
RELAY CXRAY RESULT TO MD. PER MD ORDER PICC LINE PLACEMENT.
--- NOTE | 2021-07-30 21:50 | NUR ---
NOTIFIED IN SERVICE EDUCATOR FOR PICC LINE
--- NOTE | 2021-07-30 23:00 | NUR ---
REMOVED PICC LINE, APPLIED PRESSURE FOR 5MINS CANNULA TIP INTACT NO ACTIVE BLEEDING NOTED.
--- NOTE | 2021-07-30 23:30 | NUR ---
SUCTIONED PATIENT, OBTAINED SMALL AMOUNT OF WHITE THIN SECRETION. ORAL CARE PROVIDED
[2021-07-31] VITALS: BP 154/63
[2021-07-31] MEDS: ALBUTEROL SULFATE/IPRATROPIU 3 ML SOL IH SCH ×4 (01:05→19:22)
[2021-07-31] MEDS ORDERED: HYDROcodone/APAP 5/325 MG 1 TAB TAB PO PRN (01:10)
--- NOTE | 2021-07-31 02:11 | NUR ---
MADE ROUNDS PATIENT SLEEPING RESPIRATION EVEN UNLABORED ON TRACH TO VENT, NO DISTRESS NOTED. WILL CONTINUE TO MONITOR
--- NOTE | 2021-07-31 03:59 | NUR ---
FACIAL GRIMACING AND BODY TENSING NOTED WITH ELEVATED HR. PRN PAIN MED GIVEN PER ORDER. WILL CONTINUE TO MONITOR
[2021-07-31 04:00] VITALS: BP 158/99
--- NOTE | 2021-07-31 04:51 | NUR ---
MORNING CARE PROVIDE,
[2021-07-31] MEDS: BLOOD GLUCOSE MONITORING 1 DEV DEV FS SCH ×4 (06:34→21:32)
--- NOTE | 2021-07-31 06:52 | NUR ---
Texted Tunde and PICC RN to insert PICC; waiting for Tunde to text back
--- NOTE | 2021-07-31 07:08 | NUR ---
ENDORSED PATIENT TO DAY SHIFT NURSE FOR CONTINUITY OF CARE
--- NOTE | 2021-07-31 07:25 | NUR ---
RECEIVED REPORT FROM DISPLAY AND BANNER DESIGNER NURSE. PATIENT IN BED RESTING. SHE IS ALERT AND ORIENTED X0. PATIENT IS APHASIC. SHE HAS A G-TUBE IN PLACE, RUNNING VITAL AF @ 40ML/HR WITH Q6 FLUSHES AT 95ML/HR. SHE HAS A RIGHT BLISTER DRESSING, DRY AND INTACT. SHE HAS A DAVENPORT CATHETER, INTACT AND PATIENT. DRAINING YELLOW-LANRE FLUID. THERE IS NO PICC LINE ACCESS AT THIS TIME. WAITING FOR CONSENT TO BE COMPLETED AND PICC NURSE TO SCHEDULE INSERTION. CALL LIGHT WITHIN REACH. ALL SAFETY MEASURES IN PLACE. BED IN LOWEST POSITION. WILL CONTINUE TO MONITOR.
[2021-07-31] MEDS: BUDESONIDE 0.5 MG/2 ML NEBU INH SCH ×2 (07:29→19:23)
[2021-07-31 08:00] VITALS: BP 128/45
[2021-07-31] MEDS: PANTOPRAZOLE 40 MG INJ VIAL IVP SCH ×2 (08:45→21:32)
--- NOTE | 2021-07-31 08:45 | NUR ---
MEDICATION PROTONIX NOT ADMINISTERED. NO IV ACCESS AT THIS TIME.
--- NOTE | 2021-07-31 08:47 | NUR ---
RE-ASSESSED PATIENT DUE TO ENGRAVER STEEL PLATE REPORT BP AT 172/100. RE-ASSESSED, BP AT 128/45. WILL CONTINUE TO MONITOR.
--- NOTE | 2021-07-31 09:10 | NUR ---
WOUND CARE RE-EVALUATION NOTE: RIGHT HAND WOUND SKIN TEAR DRY AND CLEAN, NO S/S OF INFECTION. CONTINUE WITH SAME INTERVENTIONS. -RIGHT DORSAL HAND SKIN TEAR 2X3CM SUPERFICIAL DEPTH WITH LEBRON WOUND BLISTERING THIN SKIN TO FINGERS, EASILY TO TORN. -BLANCHABLE REDNESS TO BILATERAL HEELS RECOMMENDATIONS: -CLEANSE RIGHT HAND SKIN TEAR AND BLISTERING SKIN WITH NS, PAT DRY, APPLY VERSATEL DRESSING AND COVER WITH DRY DRESSING, WRAP WITH KERLIX ROLL QD AND PRN IF SOILING -APPLY FORM DRESSING TO SACROCOCCYX AND RIGHT AND LEFT KNEES,HEELS Q7 DAYS AND PRN IF SOILING PREVENTION -APPLY HEEL PROTECTORS TO BOTH HEELS AT ALL TIMES -OFFLOAD BILATERAL HEELS BY PLACING PILLOWS UNDER CALVES UNLESS OTHERWISE CONTRAINDICATED -PRESSURE REDISTRIBUTION SURFACE THERAPY -TURN AND REPOSITION Q2H, OFFLOAD SACRALCOCCYX AND BUTTOCKS BY TURNING RIGHT AND LEFT -CONTINUE TO FOLLOW RD RECOMMENDATIONS
--- NOTE | 2021-07-31 09:21 | NUR ---
NOTIFIED MD ABOUT NEEDING CONSENT TO BE SIGNED FOR A PICC LINE. AWAITING RESPONDS. NOTIFIED CRAFT DEMONSTRATOR ABOUT NOT HAVING CONSENT SIGNED YET.
--- NOTE | 2021-07-31 11:27 | NUR ---
CONSENT HAS BEEN CONTAINED WITH 2 RN SIGNATURES AND MD ALFONSO.
[2021-07-31 12:00] VITALS: BP 132/72
--- NOTE | 2021-07-31 12:31 | NUR ---
PICC LINE NURSE AT BEDSIDE, PROVIDED WITH ALL SUPPLIES, ALL QUESTIONS ANSWERED. STATED MIDLINE WILL BE SUFFICIENT FOR PATIENT AND NO INDICATION FOR PICC LINE. PT IS STABLE WITH NO S//S OF ACUTE DISTRESS. WILL CONTINUE TO MONITOR.
--- NOTE | 2021-07-31 13:22 | NUR ---
PICC NURSE HAS SUCCESSFULLY PLACED MIDLINE. RT AT BEDSIDE MONITOR OXYGEN LEVEL. PT IS STABLE, WILL CONTINUE TO MONITOR.
--- NOTE | 2021-07-31 15:11 | NUR ---
PT IS STABLE IN BED WITH NO ACUTE S/S OF DISTRESS, ALL SAFETY MEASURES IN PLACE. CALL LIGHT WITHIN REACH. WILL CONTINUE TO MONITOR.
[2021-07-31 16:00] VITALS: BP 163/75
--- NOTE | 2021-07-31 16:31 | NUR ---
REASSESSED BLOOD PRESSURE DUE TO CNAS BLOOD PRESSURE READING OF 151/111. REASSESSMENT SHOWS 163/75. WILL CONTINUE TO MONITOR.
[2021-07-31] MEDS: FLUCONAZOLE 200 MG/NS PREMIX 100 ML IV SCH (17:27)
--- NOTE | 2021-07-31 17:38 | NUR ---
OLVIN MEDICATION ADMINISTERED PER MD ORDER. ALL SAFETY MEASURES IN PLACE. CALL LIGHT WITHIN REACH. WILL CONTINUE TO MONITOR.
--- NOTE | 2021-07-31 17:55 | NUR ---
CHANGED G TUBE FEEDING AND TUBING. ALSO CHANGED DRESSING TO WOUND ON R HAND. PATIENT TOLERATED WELL. SO SIGNS OF DISTRESS NOTED. WILL CONTINUE TO MONITOR.
--- NOTE | 2021-07-31 19:10 | NUR ---
PATIENT ENDORSED TO SYRUP SHED SUPERVISOR. IN STABLE CONDITION. POC DISCUSSED.
[2021-07-31 20:00] VITALS: BP 183/73
[2021-07-31] MEDS: NACL 0.9% 1,000 ML IV SCH (20:55)
[2021-07-31] MEDS: hydrALAZINE 20 MG/ML VIAL IVP PRN (22:12)
[2021-07-31] MEDS ORDERED: GENTAMICIN PER PHARMACY MC PRN (22:55)
[2021-07-31] MEDS ORDERED: GENTAMICIN 150 MG in DEXTROSE 5% 100 ML IV ONE (23:30)
[2021-07-31] MEDS ORDERED: GENTAMICIN 80 MG/2 ML VIAL ONE (23:58)
[2021-08-01] VITALS: BP 159/66
[2021-08-01] MEDS: ALBUTEROL SULFATE/IPRATROPIU 3 ML SOL IH SCH ×4 (01:00→19:45)
[2021-08-01 04:00] VITALS: BP 166/100
[2021-08-01] MEDS: BLOOD GLUCOSE MONITORING 1 DEV DEV FS SCH ×4 (06:32→20:38)
[2021-08-01] MEDS: hydrALAZINE 20 MG/ML VIAL IVP PRN ×2 (06:39→20:58)
--- NOTE | 2021-08-01 07:15 | NUR ---
RECEIVED REPORT FROM PLANNER CHIEF NURSE. PT STABLE. BREATHING SYMMETRICAL. NO S/S OF DISTRESS. PT RESTING IN BED. CALL LIGHT IN REACH. ALL SAFETY MEASURES IN PLACE.
[2021-08-01] MEDS: BUDESONIDE 0.5 MG/2 ML NEBU INH SCH ×2 (07:28→19:45)
[2021-08-01 08:00] VITALS: BP 145/70
[2021-08-01 08:13] LABS: BASOPHILS # (AUTO) 0.1 K/uL (0.00-0.22); BASOPHILS % (AUTO) 0.8 % (0.0-2.0); EOSINOPHILS # (AUTO) 0.3 K/uL (0-0.4); EOSINOPHILS % (AUTO) 3.4 % (0.0-4.0); HEMATOCRIT 27.4 % (36-48); HEMOGLOBIN 8.8 g/dL (12.0-16.0); LYMPHOCYTES # (AUTO) 3.9 K/uL (2.5-16.5); LYMPHOCYTES % (AUTO) 42.7 % (20.5-51.1); MEAN CORPUSCULAR HEMOGLOBIN 31 pg (27-31); MEAN CORPUSCULAR HGB CONC 32 g/dL (33-37); MEAN CORPUSCULAR VOLUME 95.2 fL (80-94); MONOCYTES # (AUTO) 0.5 K/uL (0.8-1.0); MONOCYTES % (AUTO) 5.6 % (1.7-9.3); NEUTROPHILS # (AUTO) 4.4 K/uL (1.8-7.7); NEUTROPHILS % (AUTO) 47.5 % (42.2-75.2); PLATELET COUNT (AUTO) 248 K/uL (140-450); RED BLOOD CELL COUNT(AUTO) 2.88 MIL/uL (4.20-5.40); RED CELL DISTRIBUTION WIDTH 16.5 % (11.6-13.7); WHITE BLOOD COUNT (AUTO) 9.2 K/uL (4.8-10.8)
[2021-08-01] MEDS: PANTOPRAZOLE 40 MG INJ VIAL IVP SCH ×2 (08:43→20:39)
[2021-08-01 09:02] LABS: ALBUMIN 2.3 g/dL (3.4-5.0); ANION GAP 12.5 (8-16); ASPARTATE AMINOTRANSFERASE 23 U/L (15-37); CHLORIDE 113 mmol/L (98-107); CREATININE 0.9 mg/dL (0.6-1.3); GLUCOSE 108 mg/dL (74-106); POTASSIUM 3.5 mmol/L (3.5-5.1); SODIUM SERUM 148 mmol/L (136-145); TOTAL BILIRUBIN 0.3 mg/dL (0.0-1.0); UREA NITROGEN, BLOOD 21 mg/dL (7-18)
--- NOTE | 2021-08-01 09:43 | NUR ---
PT TURNED AND INCREASED HOB. NO S/S OF DISTRESS. B/P TRENDING DOWN. WILL CONTINUE TO MONITOR. CALL LIGHT IN REACH. ALL SAFETY MEASURES IN PLACE.
--- NOTE | 2021-08-01 10:24 | NUR ---
(08/01/21) RD FOLLOW UP COMPLETED PLEASE REFER TO NUTRITION PROGRESS NOTE UNDER CARE ACTIVITY FOR ESTIMATED NUTRITION NEEDS. RD RECOMMENDATIONS: 1.CONTINUE VITAL 1.2 @40 ML/HR - THIS WILL PROVIDE 1152 KCAL/DAY AND 72 GM OF PROTEIN/DAY. 2. CONTINUE FREE WATER FLUSH OF [address] TO FOLLOW UP 2-3 DAYS, HIGH RISK ARANZA WITT, MS, RDN
--- NOTE | 2021-08-01 11:13 | NUR ---
PT GOWN AND LINENS CHANGED. PT TURNED. NO VISIBLE WOUNDS ON BACK AND SACRUM. PT BREATHING SYMMETRICAL. NO S/S OF DISTRESS. BG 105, NO COVERAGE NEEDED. CALL LIGHT IN REACH. ALL SAFETY MEASURES IN PLACE.
[2021-08-01 12:00] VITALS: BP 137/52
[2021-08-01] MEDS: GENTAMICIN 100 MG in DEXTROSE 5% 100 ML IV SCH (12:31)
--- NOTE | 2021-08-01 13:43 | NUR ---
PATIENT RESTING IN BED. BREATHING SYMMETRICAL. PT TURNED. NO S/S OF DISTRESS. CALL LIGHT IN REACH. ALL SAFETY MEASURES IN PLACE.
--- NOTE | 2021-08-01 15:52 | NUR ---
PATIENT RESTING IN BED. BREATHING SYMMETRICAL. NO S/S OF DISTRESS. CALL LIGHT IN REACH. ALL SAFETY MEASURES IN PLACE.
[2021-08-01 16:00] VITALS: BP 142/73
[2021-08-01] MEDS: FLUCONAZOLE 200 MG/NS PREMIX 100 ML IV SCH (17:15)
--- NOTE | 2021-08-01 19:30 | NUR ---
ENDORSED PATIENT TO CLINICAL PSYCHOLOGIST NURSE. PT STABLE. NO S/S OF DISTRESS. BREATHING SYMMETRICAL. CALL LIGHT IN REACH. ALL SAFETY MEASURES IN PLACE.
[2021-08-01 20:00] VITALS: BP 169/89
[2021-08-01] MEDS: NACL 0.9% 1,000 ML IV SCH (20:39)
--- NOTE | 2021-08-01 21:01 | NUR ---
Assumed care. Trach to vent. In no acute distress, respiratory or otherwise. RT at the bedside. SBP = 169. Hydralazine has been administered PRN. Will reassess.
[2021-08-02] VITALS (7 sets, daily range): BP systolic 147–168; BP diastolic 63–92
[2021-08-02] MEDS: GENTAMICIN 100 MG in DEXTROSE 5% 100 ML IV SCH ×2 (00:19→12:20)
[2021-08-02] MEDS: ALBUTEROL SULFATE/IPRATROPIU 3 ML SOL IH SCH ×4 (01:14→20:27)
[2021-08-02] MEDS: hydrALAZINE 20 MG/ML VIAL IVP PRN (05:49)
[2021-08-02] MEDS: BLOOD GLUCOSE MONITORING 1 DEV DEV FS SCH ×4 (06:07→21:00)
[2021-08-02] MEDS: BUDESONIDE 0.5 MG/2 ML NEBU INH SCH ×2 (07:21→20:27)
--- NOTE | 2021-08-02 07:39 | NUR ---
RECEIVED REPORT FROM REFERENCE LIBRARIAN NURSE. PT STABLE. NO S/S OF DISTRESS. BREATHING SYMMETRICAL. CALL LIGHT IN REACH. ALL SAFETY MEASURES IN PLACE.
--- NOTE | 2021-08-02 07:44 | NUR ---
Asumed casre last night. Pt remains on the vent with the same settings. We have to manage the BP twice. Care has been endorse to AM FATIMAH.
[2021-08-02] MEDS: PANTOPRAZOLE 40 MG INJ VIAL IVP SCH ×2 (08:41→21:57)
--- NOTE | 2021-08-02 09:35 | NUR ---
PATIENT RESTING IN BED. NO SIGNS AND SYMPTOMS OF DISTRESS. BREATHING SYMMETRICAL. PATIENT TOLERATED MEDICATIONS GIVEN PER MD ORDER. CALL LIGHT IN REACH. ALL SAFETY MEASURES IN PLACE
--- NOTE | 2021-08-02 11:43 | NUR ---
PT RESTING IN BED. BG 105, NO INSULIN COVERAGE NEEDED PER SLIDING SCALE. NO S/S OF DISTRESS. BREATHING SYMMETRICAL. CALL LIGHT IN REACH. ALL SAFETY MEASURES IN PLACE.
[2021-08-02 12:08] LABS: CARBON DIOXIDE 29.3 mmol/L (21-32); CHLORIDE 112 mmol/L (98-107); GLUCOSE 117 mg/dL (74-106); POTASSIUM 3.3 mmol/L (3.5-5.1); SODIUM SERUM 149 mmol/L (136-145); UREA NITROGEN, BLOOD 22 mg/dL (7-18)
--- NOTE | 2021-08-02 13:00 | NUR ---
CHANGED SILICON DRESSING ON PATIENT RIGHT HAND. PT LINENS AND GOWN CHANGED. PT PROVIDED BED BATH AND ORAL CARE. NO S/S OF DISTRESS. BREATHING SYMMETRICAL. CALL LIGHT IN REACH. ALL SAFETY MEASURES IN PLACE.
[2021-08-02] MEDS: POTASSIUM CHLORIDE 20% 40 MEQ/15 ML UDC GT PRN (13:11)
--- NOTE | 2021-08-02 14:06 | NUR ---
PATIENT FEEDING STOPPED PER PROTOCOL. RESIDUAL ABOVE 200ML. WILL REASSESS PT IN 1HR. CALL LIGHT IN REACH. ALL SAFETY MEASURES IN PLACE.
--- NOTE | 2021-08-02 15:36 | NUR ---
REASSESSED PATIENTS RESIDUAL AT 1510. PT RESIDUAL STILL ABOVE 200. TUBE FEEDING HELD. WILL CONTINUE TO MONITOR AND REASSESS. CALL LIGHT IN REACH. ALL SAFETY MEASURES IN PLACE
--- NOTE | 2021-08-02 16:09 | NUR ---
RT AT BEDSIDE. CHANGED TRACH DRESSING. CURRENT SETTING: AC/PC FI02 30%, TV 32, RATE 16, PEEP 5. TV WAS CHANGED FROM 30 TO 32, RT STATED PT WAS NOT TOLERATING PC SETTINGS.
[2021-08-02] MEDS: FLUCONAZOLE 200 MG/NS PREMIX 100 ML IV SCH (17:59)
--- NOTE | 2021-08-02 18:36 | NUR ---
PT RESTING IN BED. PT STABLE. NO S/S OF DISTRESS. BREATHING SYMMETRICAL. NO SIGNS OF PAIN. CALL LIGHT IN REACH. ALL SAFETY MEASURES IN PLACE.
--- NOTE | 2021-08-02 19:49 | NUR ---
ENDORSED PT TO LENS ENGRAVER NURSE. PT STABLE. NO S/S OF DISTRESS. BREATHING SYMMETRICAL. CALL LIGHT IN REACH. ALL SAFETY MEASURES IN PLACE.
[2021-08-02] MEDS: NACL 0.9% 1,000 ML IV SCH (20:35)
--- NOTE | 2021-08-02 20:46 | NUR ---
Assumed care. Remains on trach to vent. PC = 32 presently. K = 3.3. 40meq KCL administered by AM RN. BP has remained stable thought the day I am told. She was given a bed bath. Will continue to monitor.
--- NOTE | 2021-08-02 22:40 | NUR ---
WE are continuing the care. SBP is in the 150s so far. BG = 104. No coverage needed. Will continue to monitor.
[2021-08-03] VITALS: BP 153/70
[2021-08-03] MEDS: GENTAMICIN 100 MG in DEXTROSE 5% 100 ML IV SCH (00:02)
[2021-08-03 04:00] VITALS: BP 145/57
[2021-08-03 06:01] LABS: BASOPHILS % (AUTO) 0.7 % (0.0-2.0); EOSINOPHILS # (AUTO) 0.4 K/uL (0-0.4); EOSINOPHILS % (AUTO) 5.7 % (0.0-4.0); HEMATOCRIT 25.3 % (36-48); HEMOGLOBIN 8.3 g/dL (12.0-16.0); LYMPHOCYTES # (AUTO) 2.7 K/uL (2.5-16.5); LYMPHOCYTES % (AUTO) 40.2 % (20.5-51.1); MEAN CORPUSCULAR HEMOGLOBIN 31 pg (27-31); MEAN CORPUSCULAR HGB CONC 33 g/dL (33-37); MEAN CORPUSCULAR VOLUME 93.2 fL (80-94); MONOCYTES # (AUTO) 0.5 K/uL (0.8-1.0); NEUTROPHILS # (AUTO) 3.1 K/uL (1.8-7.7); NEUTROPHILS % (AUTO) 45.4 % (42.2-75.2); PLATELET COUNT (AUTO) 258 K/uL (140-450); RED BLOOD CELL COUNT(AUTO) 2.71 MIL/uL (4.20-5.40); RED CELL DISTRIBUTION WIDTH 16.4 % (11.6-13.7); WHITE BLOOD COUNT (AUTO) 6.8 K/uL (4.8-10.8)
[2021-08-03 06:19] LABS: ANION GAP 10.1 (8-16); CHLORIDE 112 mmol/L (98-107); CREATININE 0.9 mg/dL (0.6-1.3); GLUCOSE 98 mg/dL (74-106); POTASSIUM 3.1 mmol/L (3.5-5.1); SODIUM SERUM 150 mmol/L (136-145); UREA NITROGEN, BLOOD 19 mg/dL (7-18)
[2021-08-03 06:26] LABS: MAGNESIUM 1.8 mg/dL (1.8-2.4); PHOSPHORUS 3.1 mg/dL (2.5-4.9)
[2021-08-03] MEDS: ALBUTEROL SULFATE/IPRATROPIU 3 ML SOL IH SCH ×3 (07:02→19:16)
[2021-08-03] MEDS: BLOOD GLUCOSE MONITORING 1 DEV DEV FS SCH ×4 (07:08→21:13)
--- NOTE | 2021-08-03 07:09 | NUR ---
She slept well. The night was calm. We did not have to administer any Hydralazine. BP remained within acceptable limits. Will endorse care to AM RN.
[2021-08-03] MEDS: BUDESONIDE 0.5 MG/2 ML NEBU INH SCH ×2 (07:19→19:16)
--- NOTE | 2021-08-03 07:20 | NUR ---
RECEIVED BEDSIDE REPORT FROM SHOE PARTS MOLDER NURSE FOR CONTINUITY OF CARE. PT IS APHASIC. TRACH TO VENT WITH BREATHING UNLABORED. VENT SETTINGS; FIO2 30%, PEEP 5, RT 16, AC/PC MODE. O2 SAT IS 100%. G TUBE IN PLACE INFUSING FEEDING ORDERED. [place] CATH IN PLACE. SKIN IS WARM AND DRY. BLISTER ON THE RIGHT HAND. UPPER ARMS BILATERALLY ARE CONTRACTED. RIGHT UPPER ARM MIDLINE IN PLACE TKO NS. PT IS STABLE AT THIS TIME. PLAN OF CARE DISCUSSED.
[2021-08-03 08:00] VITALS: BP 184/68
[2021-08-03] MEDS: PANTOPRAZOLE 40 MG INJ VIAL IVP SCH ×2 (09:09→21:14)
--- NOTE | 2021-08-03 09:16 | NUR ---
DC PLANNING [facility] ATTEMPTED FOR THE THIRD TIME TO CONTACT PATIENT'S DAUGHTER DENISSE FERNANDEZ AT TO DISCUSS PATIENT'S LEVEL OF CARE NEEDS, AND POSSIBLE HOSPICE SERVICES. PATIENT'S DAUGHTER DID NOT ANSWER AND SW LEFT HER ANOTHER VOICE MAIL MGS WITH THESE WRITERS DIRECT CONTACT. SW WILL CONTINUE TO FOLLOW UP NEEDED
--- NOTE | 2021-08-03 09:30 | NUR ---
G TUBE RESIDUAL IS 450 ML, LIGHT YELLOW FLUID. G TUBE FEEDING WAS STOPPED PER PROTOCOL. PT IS NOT TOLERATING FEEDING WELL. DR. ALFONSO WAS NOTIFIED. WILL CONTINUE TO MONITOR.
[2021-08-03] MEDS: POTASSIUM CHLORIDE 20% 40 MEQ/15 ML UDC GT PRN (10:00)
[2021-08-03] MEDS: hydrALAZINE 20 MG/ML VIAL IVP PRN (10:00)
--- NOTE | 2021-08-03 10:00 | NUR ---
PT'S POTASSIUM LEVEL WAS 3.1. AND PT WAS GIVEN POTASSIUM CHLORIDE 20% VIA G TUBE. WILL CONTINUE TO MONITOR PT. RECHECKED BP AND IT WAS 144/92. PT IS STABLE.
--- NOTE | 2021-08-03 11:50 | NUR ---
ROUNDED ON PT. TRACH TO VENT WITH O2 SAT AT 97%. NO RESPIRATORY DISTRESS NOTED. FLACC 0. PT IS STABLE. WILL CONTINUE TO MONITOR.
[2021-08-03 12:00] VITALS: BP 150/110
--- NOTE | 2021-08-03 12:00 | NUR ---
RECEIVED A CALL FROM TOMY FROM PHARMACY AND HE INFORMED ME THAT WE ARE GOING TO HOLD TO GENTAMICIN BECAUSE THE TROUGH JUST CAME BACK TOO HIGH. WILL HOLD MEDICATION.
--- NOTE | 2021-08-03 13:34 | NUR ---
PT IS LAYING WITH EYES CLOSED. BREATHING IS UNLABORED ON TRACH TO VENT. G TUBE HAS BEEN RESTARTED. G TUBE RESIDUAL IS LESS THAN 5 ML. WILL CONTINUE TO MONITOR.
--- NOTE | 2021-08-03 13:49 | NUR ---
PER MD AND MORTGAGE MANAGER CHANGE SETTINGS TO ASSIST WITH DISCHARGE PLANNING - WITH AN ABG AFTER AN HOUR.
--- NOTE | 2021-08-03 15:30 | NUR ---
CLEANED AND REPOSITIONED PT. SHE HAD A SMALL, SOFT BM. NO RESPIRATORY DISTRESS ON TRACH TO VENT. O2 SAT IS 98%. [place] CATH IN PLACE. G TUBE RESIDUAL IS LESS THAN 5 ML, PT IS TOLERATING FEEDING WELL.
[2021-08-03 16:00] VITALS: BP 160/92
--- NOTE | 2021-08-03 17:30 | NUR ---
ORAL CARE WAS PROVIDED. LOTION WAS APPLIED TO DRY SKIN. DRESSING IS INTACT ON THE RIGHT HAND. PILLOWS IN PLACE TO OFFSET PRESSURE OFF SACRAL REGION AND BONY REGIONS. PT IS STABLE.
--- NOTE | 2021-08-03 19:30 | NUR ---
ENDORSED PT TO BOOKKEEPING MACHINE MECHANIC NURSE FOR CONTINUITY OF CARE. NO RESPIRATORY DISTRESS ON TRACH TO VENT. O2 SAT IS 98%. PT IS STABLE AT THIS TIME. PLAN OF CARE DISCUSSED.
--- NOTE | 2021-08-03 19:35 | NUR ---
RECEIVED REPORT FROM DANIE SHERIDAN FOR CONTINUITY OF CARE. PT SITTING UP AROUSABLE TO VERBAL/TACTILE STIMULI, NONVERBAL. NO APPARENT S/S OF ACUTE DISTRESS. BREATHING EVEN AND UNLABORED ON TRACH TO VENT WITH O2 SAT OF 98%. NO S/S OF CP, SOB OR PAIN. R UA MIDLINE INTACT/PATENT WITH NS@10ML/HR. G-TUBE INTACT/PATENT WITH VITAL AF1.2. DAVENPORT CATH INTACT/PATENT WITH YELLOW URINE DRAINING TO GRAVITY. POC AND WHITE COMMUNICATION BOARD UPDATED. BED IN LOW/LOCKED POSITION. CALL LIGHT WITHIN REACH. PT ENCOURAGED TO CALL FOR ANY NEEDS/ASSISTANCE. WILL CONTINUE TO MONITOR.
[2021-08-03 20:00] VITALS: BP 151/72
[2021-08-03] MEDS: NACL 0.9% 1,000 ML IV SCH (21:13)
[2021-08-04] VITALS: BP 157/71
[2021-08-04] MEDS: ALBUTEROL SULFATE/IPRATROPIU 3 ML SOL IH SCH ×3 (00:28→14:03)
[2021-08-04 04:00] VITALS: BP 149/70
[2021-08-04 06:02] LABS: CARBON DIOXIDE 29.4 mmol/L (21-32); CHLORIDE 111 mmol/L (98-107); GLUCOSE 115 mg/dL (74-106); POTASSIUM 3.4 mmol/L (3.5-5.1); SODIUM SERUM 149 mmol/L (136-145); UREA NITROGEN, BLOOD 18 mg/dL (7-18)
[2021-08-04 06:44] LABS: BASOPHILS # (AUTO) 0.1 K/uL (0.00-0.22); BASOPHILS % (AUTO) 0.6 % (0.0-2.0); EOSINOPHILS # (AUTO) 0.4 K/uL (0-0.4); EOSINOPHILS % (AUTO) 4.4 % (0.0-4.0); HEMATOCRIT 26.2 % (36-48); HEMOGLOBIN 8.6 g/dL (12.0-16.0); LYMPHOCYTES # (AUTO) 3.9 K/uL (2.5-16.5); LYMPHOCYTES % (AUTO) 38.6 % (20.5-51.1); MEAN CORPUSCULAR HEMOGLOBIN 30 pg (27-31); MEAN CORPUSCULAR HGB CONC 33 g/dL (33-37); MEAN CORPUSCULAR VOLUME 91.7 fL (80-94); MONOCYTES # (AUTO) 0.7 K/uL (0.8-1.0); MONOCYTES % (AUTO) 7.3 % (1.7-9.3); NEUTROPHILS % (AUTO) 49.1 % (42.2-75.2); PLATELET COUNT (AUTO) 193 K/uL (140-450); RED BLOOD CELL COUNT(AUTO) 2.86 MIL/uL (4.20-5.40); RED CELL DISTRIBUTION WIDTH 16.5 % (11.6-13.7); WHITE BLOOD COUNT (AUTO) 10.1 K/uL (4.8-10.8)
[2021-08-04] MEDS: BLOOD GLUCOSE MONITORING 1 DEV DEV FS SCH ×2 (07:03→11:24)
--- NOTE | 2021-08-04 07:12 | NUR ---
REPORT GIVEN TO DANIE SHERIDAN FOR CONTINUITY OF CARE. PT AA. NO APPARENT S/S OF ACUTE DISTRESS. BREATHING EVEN AND UNLABORED. BED IN LOW/LOCKED POSITION. CALL LIGHT WITHIN REACH. ALL NEEDS MET AT THIS TIME.
--- NOTE | 2021-08-04 07:25 | NUR ---
RECEIVED BEDSIDE REPORT FROM CONTROLLED ATMOSPHERIC FURNACE BRAZER NURSE FOR CONTINUITY OF CARE. PT IS APHASIC. ON TRACH TO VENT WITH BREATHING UNLABORED. O2 SAT IS 100%. G TUBE IN PLACE INFUSING FEEDING ORDERED. [place] CATH IN PLACE DRAINING CLEAR, YELLOW URINE. SKIN IS WARM AND DRY. BLISTER ON THE RIGHT HAND WITH DRESSING INTACT. RIGHT UPPER ARM MIDLINE RUNNING NS TKO. PT IS STABLE AT THIS TIME. PLAN OF CARE DISCUSSED.
[2021-08-04] MEDS: BUDESONIDE 0.5 MG/2 ML NEBU INH SCH (07:43)
[2021-08-04 08:00] VITALS: BP 159/74
--- NOTE | 2021-08-04 09:00 | NUR ---
PT IS TRACH TO VENT WITH O2 SAT AT 98%. BREATHING IS UNLABORED. PT IS CALM, APHASIC. NO DISTRESS NOTED. G TUBE RESIDUAL IS LESS THAN [address]. PT TOLERATING FEEDING WELL. [place] CATH IN PLACE. PT IS STABLE.
[2021-08-04] MEDS: PANTOPRAZOLE 40 MG INJ VIAL IVP SCH (09:27)
[2021-08-04] MEDS: POTASSIUM CHLORIDE 20% 40 MEQ/15 ML UDC GT PRN (09:27)
--- NOTE | 2021-08-04 09:27 | NUR ---
PT WAS GIVEN POTASSIUM CHLORIDE 20% VIA G TUBE FOR POTASSIUM LEVEL OF 3.4. WILL CONTINUE TO MONITOR POTASSIUM LEVEL.
[2021-08-04] MEDS ORDERED: GENTAMICIN 120 MG in DEXTROSE 5% 100 ML IV SCH (10:00)
--- NOTE | 2021-08-04 11:00 | NUR ---
BED BATH WAS GIVEN. PT WAS REPOSITIONED AND TURNED USING PILLOWS TO OFFSET PRESSURE OFF SACRAL REGION. BREATHING IS UNLABORED ON TRACH TO VENT. PT IS STABLE.
[2021-08-04 12:00] VITALS: BP 156/72
--- NOTE | 2021-08-04 12:38 | NUR ---
BLISTER ON RIGHT HAND WAS CLEANSED WITH NS AND PATTED DRY. NEW DRESSING WAS APPLIED. PICTURE WAS TAKEN FOR DISCHARGE.
[2021-08-04] MEDS ORDERED: [UNRECOGNIZED DRUG - CODE] IV ×2 (12:48→12:53)
[2021-08-04] MEDS ORDERED: PUL.5N INH (12:48)
[2021-08-04 14:17] VITALS: BP 156/72
--- NOTE | 2021-08-04 14:50 | NUR ---
[place] [facility] [place]. ALL QUESTIONS ANSWERED. INFORMED HER THAT [facility] WILL BE HERE AT 1500 TO GENERAL DENTIST/OWNER PATIENT.
--- NOTE | 2021-08-04 15:10 | NUR ---
[facility] HERE TO FORGE UTILITY WORKER PT. G TUBE FEEDING WAS STOPPED. VS WERE STABLE. O2 SAT WAS 100% ON TRACH TO VENT. REPORT WAS GIVEN TO [facility]. [place] CATHETER IN PLACE. G TUBE IN PLACE. RIGHT UPPER ARM PICC LINE IN PLACE. PT IS STABLE AND DISCHARGED FROM HOSPITAL VIA ROXBOW.
== END 2021-08-04 15:32 | DRG 720 ==
LOC: MED 18:28 → MTU 20:53
PROVIDERS: ADMIT Family Medicine; ATTEND Family Medicine
PROC: 5A1955Z Respiratory Ventilation, Greater than 96 Consecutive Hours (ICD-10-PCS; principal; 2021-07-20)
PROC: 30233N1 Transfusion of Nonautologous Red Blood Cells into Peripheral Vein, Percutaneous Approach (ICD-10-PCS; 2021-07-21)
DX: A41.9 Sepsis, unspecified organism (principal); J96.21 Acute and chronic respiratory failure with hypoxia; J69.0 Pneumonitis due to inhalation of food and vomit; R53.2 Functional quadriplegia; J44.9 Chronic obstructive pulmonary disease, unspecified; R13.11 Dysphagia, oral phase; E87.0 Hyperosmolality and hypernatremia; D63.8 Anemia in other chronic diseases classified elsewhere; J39.8 Other specified diseases of upper respiratory tract; E87.8 Other disorders of electrolyte and fluid balance, not elsewhere classified; E11.9 Type 2 diabetes mellitus without complications; E78.5 Hyperlipidemia, unspecified; Y95 Nosocomial condition; F03.90 Unspecified dementia, unspecified severity, without behavioral disturbance, psychotic disturbance, mood disturbance, and anxiety; B37.49 Other urogenital candidiasis; B96.5 Pseudomonas (aeruginosa) (mallei) (pseudomallei) as the cause of diseases classified elsewhere; B96.89 Other specified bacterial agents as the cause of diseases classified elsewhere; K21.9 Gastro-esophageal reflux disease without esophagitis; I11.9 Hypertensive heart disease without heart failure; Z20.822 Contact with and (suspected) exposure to COVID-19; J40 Bronchitis, not specified as acute or chronic; Z86.73 Personal history of transient ischemic attack (TIA), and cerebral infarction without residual deficits; Z93.1 Gastrostomy status; Z93.0 Tracheostomy status; Z79.899 Other long term (current) drug therapy
CPT/HCPCS: 36415; 36430; 36600; 71045; 71250; 80048; 80053; 80170; 81001; 82272; 82803; 82948; 83605; 83735; 84100; 85025; 86886; 86900; 86901; 86920; 87040; 87070; 87081; 87086; 87205; 94003; 94640; 99285; A4649; C9113; J0360; J1450; J1580; J2185; J2270; J2997; J7060; J7626; P9016; Q0092